=== PATIENT | male | born 1975 | race Caucasian/White ===

== ENCOUNTER 2016-08-24 00:36 | Emergency (ER) | payer OTHER ==
[2016-08-24] MEDS ORDERED: ONDANSETRON 4 MG/2 ML VIAL IVP STA (00:41)
--- NOTE | 2016-08-24 00:51 | ED ---
Overdose HPI - General Chief Complaint: Overdose Stated Complaint: overdose Time Seen by Provider: 08/24/16 00:40 Source: patient, EMS Mode of arrival: EMS Limitations: no limitations - History of Present Illness Initial Comments: Is a 41-year-old male with a history of heroin abuse who presents emergency department for overdose. The patient was previously sober for 14 months and then decided to use today. He states that he used to lower dose than typical however was found to be unresponsive. Police and EMS were called. He was given Narcan in route and had resolution of his symptoms. He is now awake and alert complaining of nausea. He denies any chest pain or shortness of breath. He states he did not ingest any other medications. No complaints currently. - Related Data Home Medications Medication Instructions Recorded Confirmed ALPRAZolam [Xanax] 2 mg PO BID 09/26/15 09/26/15 Amoxic-Pot Clav 875-125Mg 1 tab PO Q12HR 09/26/15 09/26/15 [Augmentin 875-125] Gabapentin [Neurontin] 800 mg PO QID 09/26/15 09/26/15 Melatonin 5 mg PO HS 09/26/15 09/26/15 OLANZapine [ZyPREXA] 15 mg PO HS 09/26/15 09/26/15 Vivitrol Injection 380 mg IM Q28D 09/26/15 09/26/15 ALPRAZolam [Xanax] 2 mg PO BID PRN 10/23/15 10/23/15 Gabapentin [Neurontin] 800 mg PO QID 10/23/15 10/23/15 Melatonin 3 mg PO HS PRN 10/23/15 10/23/15 OLANZapine [ZyPREXA] 5 mg PO DAILY 10/23/15 10/23/15 Previous Rx's Medication Instructions Recorded Sulfamethox-Tmp 800-160Mg [Bactrim 1 each PO Q12HR #20 tab 09/26/15 Ds] Naloxone HCl [Evzio] 2 mg IJ ONCE PRN #1 auto.injct 08/24/16 Allergies Allergy/AdvReac Type Severity Reaction Status Date / Time aspirin AdvReac Unknown Verified 09/26/15 13:06 theophylline AdvReac Unknown Verified 09/26/15 13:06 Childhood Review of Systems ROS Statement: Those systems with pertinent positive or pertinent negative responses have been documented in the HPI. ROS Other: All systems not noted in ROS Statement are negative. Past Medical History Past Medical History: Asthma, Liver Disease Additional Past Medical History / Comment(s): PT REFUSING TO GIVE ANY MEDICAL HISTORY History of Any Multi-Drug Resistant Organisms: MRSA, None Reported Date of last positivie culture/infection: 2011 MDRO Source:: LEFT ANKLE Past Surgical History: No Surgical Hx Reported Additional Past Surgical History / Comment(s): UNKNOWN Past Anesthesia/Blood Transfusion Reactions: No Reported Reaction Past Psychological History: Anxiety, Depression Smoking Status: Current every day smoker Past Alcohol Use History: Heavy Past Drug Use History: Cocaine, Heroin, Marijuana, Opiates, Prescription Drug Abuse - Past Family History Mother Family Medical History: Cancer Father Family Medical History: Diabetes Mellitus General Exam - General Exam Comments Initial Comments: Constitutional: Awake alert Appears comfortable Head: Normocephalic atraumatic Eyes: no conjunctival injection No scleral icterus EOMI Neck: No JVD Supple Heart: Tachycardia normal S1-S2 no murmurs Lungs: Clear to auscultation bilaterally No wheezing No rales Abdomen: Soft nondistended nontender Extremities: Non edematous DP pulses intact Radial pulses intact Neuro: A&Ox3 No focal neurologic deficits Psych: Appropriate mood and affect Limitations: no limitations Course Vital Signs 08/24/16 08/24/16 00:45 00:57 Temperature 97.1 F L Pulse Rate 120 H Respiratory 18 Rate Blood Pressure 147/80 O2 Sat by Pulse 95 Oximetry - Reevaluation(s) Reevaluation #1: 08/24/16 01:16 EKG showing sinus tachycardia with a rate of 112. No ST segment changes or T- wave inversions. QTC is 458. No ectopy. Medical Decision Making - Medical Decision Making This is a 41-year-old male who presents emergency department for overdose. He is evaluated. He was monitored in the ER for approximately 35 minutes and then decided he wanted to leave. I told him that if the Narcan wore off in the room and was still in his system he could have another respiratory failure however he stated he felt like it was long enough. He was awake and alert and understood the risks of going home including or severe disability ability. He stated he still wanted to go home. He was prescribed an auto injector that he could use as needed. Told him to get into rehab that he felt like he needed it. He can return if he has worsening symptoms. Disposition Clinical Impression: Left against medical advice, Accidental heroin overdose Disposition: Left Against Medical Advice Condition: Stable Instructions: Narcotic Abuse (ED) Prescriptions: Naloxone HCl [Evzio] 2 mg IJ ONCE PRN #1 auto.injct PRN Reason: overdose Referrals: None,Stated [Primary Care Provider] - 1-2 days
[2016-08-24 00:57] VITALS: TEMP 97.1
[2016-08-24 01:21] VITALS: BP 147/55; PULSE 77; RESP 20
== END 2016-08-24 01:21 | disposition left against medical advice (07) ==
LOC: EC 00:36
DX: T40.1X1A Poisoning by heroin, accidental (unintentional), initial encounter (principal); R11.0 Nausea; F17.200 Nicotine dependence, unspecified, uncomplicated; Z86.59 Personal history of other mental and behavioral disorders; F41.9 Anxiety disorder, unspecified; F32.9 Major depressive disorder, single episode, unspecified; Z79.899 Other long term (current) drug therapy
CPT/HCPCS: 99285; 96374; 93005; J2405

== ENCOUNTER 2017-07-23 01:49 | Emergency (ER) | payer OTHER ==
[2017-07-23 01:58] VITALS: BP 152/91; PULSE 112; RESP 18
[2017-07-23 02:01] VITALS: TEMP 101.5
[2017-07-23] MEDS ORDERED: IBUPROFEN 600 MG TAB PO STA (02:03)
[2017-07-23] MEDS ORDERED: ACETAMINOPHEN TAB 500 MG TAB PO STA (02:03)
--- NOTE | 2017-07-23 02:03 | ED ---
General Adult HPI - General Chief complaint: Recheck/Abnormal Lab/Rx Stated complaint: overdose Time Seen by Provider: 07/23/17 01:50 Source: patient, EMS, RN notes reviewed Mode of arrival: EMS Limitations: no limitations - History of Present Illness Initial comments: This is a 42-year-old male presents emergency Department after doing methamphetamine. Patient states he took the methamphetamine and shortly thereafter he got the chills and then felt like he was sweating and he states he never felt Before she came to the emergency department. Patient still complaining of a dry mouth at this time. And is requesting something to drink. Patient does have a fever but denies any cough patient denies any dysuria hematuria urinary frequency. Patient denies any rashes. Patient denies abdominal pain patient denies nausea vomiting diarrhea. Patient denies chest pain or palpitations. - Related Data Home Medications Medication Instructions Recorded Confirmed ALPRAZolam [Xanax] 2 mg PO BID 09/26/15 09/26/15 Amoxic-Pot Clav 875-125Mg 1 tab PO Q12HR 09/26/15 09/26/15 [Augmentin 875-125] Gabapentin [Neurontin] 800 mg PO QID 09/26/15 09/26/15 Melatonin 5 mg PO HS 09/26/15 09/26/15 OLANZapine [ZyPREXA] 15 mg PO HS 09/26/15 09/26/15 Vivitrol Injection 380 mg IM Q28D 09/26/15 09/26/15 ALPRAZolam [Xanax] 2 mg PO BID PRN 10/23/15 10/23/15 Gabapentin [Neurontin] 800 mg PO QID 10/23/15 10/23/15 Melatonin 3 mg PO HS PRN 10/23/15 10/23/15 OLANZapine [ZyPREXA] 5 mg PO DAILY 10/23/15 10/23/15 Previous Rx's Medication Instructions Recorded Sulfamethox-Tmp 800-160Mg [Bactrim 1 each PO Q12HR #20 tab 09/26/15 Ds] Naloxone HCl [Evzio] 2 mg IJ ONCE PRN #1 auto.injct 08/24/16 Allergies Allergy/AdvReac Type Severity Reaction Status Date / Time aspirin AdvReac Unknown Verified 09/26/15 13:06 theophylline AdvReac Unknown Verified 09/26/15 13:06 Childhood Review of Systems ROS Statement: Those systems with pertinent positive or pertinent negative responses have been documented in the HPI. ROS Other: All systems not noted in ROS Statement are negative. Past Medical History Past Medical History: Asthma, Liver Disease Additional Past Medical History / Comment(s): nerve damage left arm History of Any Multi-Drug Resistant Organisms: MRSA, None Reported Date of last positivie culture/infection: 2011 MDRO Source:: LEFT ANKLE Past Surgical History: No Surgical Hx Reported Additional Past Surgical History / Comment(s): right forearm abcess. Past Anesthesia/Blood Transfusion Reactions: No Reported Reaction Past Psychological History: Anxiety, Depression Smoking Status: Current every day smoker Past Alcohol Use History: Heavy Past Drug Use History: Cocaine, Heroin, Marijuana, Opiates, Prescription Drug Abuse - Past Family History Mother Family Medical History: Cancer Father Family Medical History: Diabetes Mellitus General Exam - General Exam Comments Initial Comments: GENERAL: Patient is well-developed and well-nourished. Patient is nontoxic and well- hydrated and is in no acute distress. ENT: Neck is soft and supple. No significant lymphadenopathy is noted. Oropharynx is clear. Moist mucous membranes. Neck has full range of motion without eliciting any pain. EYES: The sclera were anicteric and conjunctiva were pink and moist. Extraocular movements were intact and pupils were equal round and reactive to light. Eyelids were unremarkable. PULMONARY: Unlabored respirations. Good breath sounds bilaterally. No audible rales rhonchi or wheezing was noted. CARDIOVASCULAR: Patient is tachycardic at 110 beats a minute ABDOMEN: Soft and nontender with normal bowel sounds. SKIN: Skin is clear with no lesions or rashes and otherwise unremarkable. NEUROLOGIC: Patient is alert and oriented x3. Cranial nerves II through XII are grossly intact. Motor and sensory are also intact. Normal speech, volume and content. Symmetrical smile. MUSCULOSKELETAL: Patient's left arm is swollen and erythematous. Patient states she's been shooting up and around last 3 days LYMPHATICS: No significant lymphadenopathy is noted PSYCHIATRIC: Normal psychiatric evaluation. Limitations: no limitations Course Vital Signs 07/23/17 01:51 Temperature 101.5 F H Pulse Rate 112 H Respiratory 18 Rate Blood Pressure 152/91 O2 Sat by Pulse 93 L Oximetry Medical Decision Making - Medical Decision Making EKG is sinus tachycardia at 119 bpm OH interval is 140 QRS is 98 QT interval 336 QTC is 472. Patient's EKG shows no ST segment elevation or depression. Patient appears to have a cellulitis of the left arm and it is swollen. Patient got antibiotics in the emergency department. Patient started to demand that he wanted to leave because he believes the police are coming to get him he doesn't want to be caught. I reassured him nurses reassured him however he still demanded to sign out AMA. I told the patient the risks of this infection getting worse and potentially Tucker for high he did not care he wanted to sign out AMA. - Lab Data Lab Results 07/23/17 07/23/17 07/23/17 Range/Units 02:25 02:34 03:15 PT 10.9 (9.0-12.0) sec INR 1.1 (<1.2) Urine Color Yellow Urine Appearance Clear (Clear) Urine pH 6.0 (5.0-8.0) Ur Specific Hope 1.026 (1.001-1.035) Urine Protein 1+ H (Negative) Urine Glucose (UA) Negative (Negative) Urine Ketones 4+ H (Negative) Urine Blood Negative (Negative) Urine Nitrite Negative (Negative) Urine Bilirubin 1+ H (Negative) Urine Urobilinogen 4.0 (<2.0) mg/dL Ur Leukocyte Esterase Negative (Negative) Urine RBC 1 (0-5) /hpf Urine WBC 2 (0-5) /hpf Ur Squamous Epith Cells 1 (0-4) /hpf Hyaline Casts 26 H (0-2) /lpf Urine Mucus Many H (None) /hpf Urine Sperm Occasional H (None) /hpf Influenza Type A RNA Not Detected (Not Detectd) Influenza Type B (PCR) Not Detected (Not Detectd) Disposition Clinical Impression: Cellulitis of arm, left Disposition: Left Against Medical Advice Referrals: None,Stated [Primary Care Provider] - 1-2 days Time of Disposition: 04:38
[2017-07-23] MEDS ORDERED: VANCOMYCIN IV PER PHARMACY 1 EACH MISC MISCELLANE PRN (02:09)
[2017-07-23] MEDS ORDERED: PIPERACILLIN-TAZOBACTAM 3.375 GM in DEXTROSE/WATER 1 50ML.BAG IVPB STA (02:09)
[2017-07-23] MEDS ORDERED: SODIUM CHLORIDE 0.9% 500 ML IV SCH (02:15)
[2017-07-23] MEDS ORDERED: VANCOMYCIN 1,500 MG in SODIUM CHLORIDE 0.9% 250 ML IVPB STA (02:31)
--- NOTE | 2017-07-23 03:15 | XR ---
EXAM: XR Chest, 2 Views CLINICAL HISTORY: ITS.REASON XR Reason: Difficulty breathing TECHNIQUE: Frontal and lateral views of the chest. COMPARISON: No relevant prior studies available. FINDINGS: Lungs: There is a subtle nodular opacity in the left midlung. This may represent infectious focus versus pulmonary nodule. No evidence of pleural effusion or consolidation. Pleural space: See above. Heart: Cardiomediastinal contours are normal. Mediastinum: See above. Bones/joints: Unremarkable. IMPRESSION: Subtle nodular opacity in the left mid lung which may represent an infectious focus versus pulmonary nodule. Consider follow-up CT chest to better evaluate
[2017-07-23 03:22] LABS: Appearance,Urine Clear (Clear); Bilirubin,Urine 1+ (Negative); Blood,Urine Negative (Negative); Color,Urine Yellow; Glucose,Urine (UA) Negative (Negative); Hyaline Casts,Urine 26 /lpf (0-2); Ketones,Urine 4+ (Negative); Leukocyte Esterase,Urine Negative (Negative); Mucus,Urine Many /hpf; Nitrite,Urine Negative (Negative); Protein,Urine 1+ (Negative); RBC,Urine 1 /hpf (0-5); Specific Gravity,Urine 1.026 (1.001-1.035); Sperm,Urine Occasional /hpf; Squamous Epithelial Cell,Urine 1 /hpf (0-4); WBC,Urine 2 /hpf (0-5)
[2017-07-23 03:41] LABS: INR 1.1 (<1.2); Prothrombin Time 10.9 sec (9.0-12.0)
[2017-07-23 05:03] LABS: Basophils % (A) 0 %; Eosinophils % (A) 0 %; HGB 14.2 gm/dL (13.0-17.5); Lymphocytes # (A) 0.7 k/uL (1.0-4.8); Lymphocytes % (A) 9 %; MCHC 32.3 g/dL (31.0-37.0); MCV 92.9 fL (80.0-100.0); Monocytes # (A) 0.7 k/uL (0-1.0); Monocytes % (A) 9 %; Neutrophils % (A) 80 %; Platelet Count 181 k/uL (150-450); RBC 4.73 m/uL (4.30-5.90); RDW 12.1 % (11.5-15.5); WBC 7.6 k/uL (3.8-10.6)
[2017-07-23 05:06] LABS: ALT 64 U/L (21-72); AST 47 U/L (17-59); Albumin 4.1 g/dL (3.5-5.0); Alkaline Phosphatase 81 U/L (38-126); Anion Gap 14 mmol/L; Blood Urea Nitrogen 10 mg/dL (9-20); Calcium 9.1 mg/dL (8.4-10.2); Carbon Dioxide 28 mmol/L (22-30); Chloride 95 mmol/L (98-107); Glucose 104 mg/dL (74-99); Potassium 3.1 mmol/L (3.5-5.1); Sodium 137 mmol/L (137-145); Total Bilirubin 1.1 mg/dL (0.2-1.3); Total Protein 7.3 g/dL (6.3-8.2)
== END 2017-07-23 04:47 | disposition left against medical advice (07) ==
LOC: EC 01:49
DX: L03.114 Cellulitis of left upper limb (principal); R00.0 Tachycardia, unspecified; R68.2 Dry mouth, unspecified; F32.9 Major depressive disorder, single episode, unspecified; F41.9 Anxiety disorder, unspecified; F17.200 Nicotine dependence, unspecified, uncomplicated; Z79.899 Other long term (current) drug therapy; Z88.6 Allergy status to analgesic agent; Z88.8 Allergy status to other drugs, medicaments and biological substances; Z86.14 Personal history of Methicillin resistant Staphylococcus aureus infection; Z86.69 Personal history of other diseases of the nervous system and sense organs
CPT/HCPCS: 36415; 93005; 80053; 83605; 85025; 85610; 85730; 81001; 87040; 87086; 87502; 71046; 99284; 96365; J2543

== ENCOUNTER 2017-07-23 12:26 | Inpatient (IN) | payer OTHER ==
[2017-07-23] MEDS ORDERED: VANCOMYCIN 1,250 MG in SODIUM CHLORIDE 0.9% 250 ML IVPB ONE (12:55)
[2017-07-23] MEDS ORDERED: SODIUM CHLORIDE 0.9% 2,000 ML IV ONE (12:55)
[2017-07-23] MEDS ORDERED: KETOROLAC 30 MG/ML 1 ML VIAL IVP STA (12:55)
--- NOTE | 2017-07-23 13:01 | ED ---
General Adult HPI - General Chief complaint: Skin/Abscess/Foreign Body Stated complaint: Infection from needle Time Seen by Provider: 07/23/17 12:35 Source: patient Mode of arrival: wheelchair Limitations: no limitations - History of Present Illness Initial comments: Patient is a 42-year-old male with a history of heroin abuse, and recent methamphetamine abuse, who presents with a chief complaint of left arm pain. The patient was seen in the emergency center last night for an overdose of methamphetamine. The patient left AMA this morning. The patient returns for cellulitis of his left arm. Patient states that it is been getting worse over the day. Patient complains of a burning sensation of his left arm. There are no aggravating or alleviating factors. Timing is constant. - Related Data Home Medications Medication Instructions Recorded Confirmed Vivitrol Injection 380 mg IM Q28D 09/26/15 07/23/17 Melatonin 3 mg PO HS PRN 10/23/15 07/23/17 Buprenorphine HCl/Naloxone HCl 1 film SL TID 07/23/17 07/23/17 [Suboxone 8 mg-2 mg Sl Film] Ergocalciferol (Vitamin D2) 50,000 unit PO Q30D 07/23/17 07/23/17 [Vitamin D2] Naltrexone HCl [Revia] 50 mg PO DAILY 07/23/17 07/23/17 QUEtiapine FUMARATE [Seroquel Xr] 300 mg PO HS 07/23/17 07/23/17 buPROPion HCL [Wellbutrin SR] 150 mg PO DAILY 07/23/17 07/23/17 Allergies Allergy/AdvReac Type Severity Reaction Status Date / Time aspirin AdvReac Unknown Verified 07/23/17 12:52 theophylline AdvReac Unknown Verified 07/23/17 12:52 Childhood Review of Systems ROS Statement: Those systems with pertinent positive or pertinent negative responses have been documented in the HPI. ROS Other: All systems not noted in ROS Statement are negative. Constitutional: Reports: chills Psychiatric: Reports: anxiety Past Medical History Past Medical History: Asthma, Liver Disease Additional Past Medical History / Comment(s): nerve damage left arm History of Any Multi-Drug Resistant Organisms: MRSA, None Reported Date of last positivie culture/infection: 2011 MDRO Source:: LEFT ANKLE Past Surgical History: No Surgical Hx Reported Additional Past Surgical History / Comment(s): right forearm abcess. Past Anesthesia/Blood Transfusion Reactions: No Reported Reaction Past Psychological History: Anxiety, Depression Smoking Status: Current every day smoker Past Alcohol Use History: Heavy Past Drug Use History: Cocaine, Heroin, Marijuana, Opiates, Prescription Drug Abuse - Past Family History Mother Family Medical History: Cancer Father Family Medical History: Diabetes Mellitus General Exam Limitations: no limitations General appearance: alert, in no apparent distress Head exam: Present: atraumatic, normocephalic Eye exam: Present: normal appearance Respiratory exam: Present: normal lung sounds bilaterally. Absent: respiratory distress, wheezes Cardiovascular Exam: Present: normal rhythm, tachycardia GI/Abdominal exam: Present: soft. Absent: distended, tenderness Rectal exam: Present: deferred Extremities exam: Present: tenderness Left Upper Arm exam: Present: tenderness, swelling, erythema Elbow exam: Present: tenderness, swelling Forearm Wrist exam: Present: tenderness, swelling, erythema Neurological exam: Present: alert, oriented X3 Psychiatric exam: Present: normal affect, normal mood Course Vital Signs 07/23/17 12:30 Temperature 99.9 F H Pulse Rate 105 H Respiratory 20 Rate Blood Pressure 131/81 O2 Sat by Pulse 98 Oximetry Medical Decision Making - Medical Decision Making Patient presents with a chief complaint of cellulitis of the left arm. Patient has a history of injectable methamphetamine use, he was recently seen in the emergency department this morning for an acute overdose. Patient left AMA at that time. Examination of the arm shows circumferential cellulitis with streaking on the lateral aspect of the left arm. Pulses and neuro exam are intact. Patient will be started on vancomycin with plan to admit. Review of labs from this morning are unremarkable. We will resend a CBC, BMP, and lactic acid level is patient is mildly tachycardic. 2:29 PM Lab evaluation this patient is unremarkable. Patient was started on vancomycin. I discussed this case with Dr. Shin who agrees with admission plan. Patient remains stable in the emergency department. - Lab Data Result diagrams: 07/23/17 13:17 07/23/17 13:17 Lab Results 07/23/17 07/23/17 07/23/17 Range/Units 13:17 13:17 13:17 WBC 5.9 (3.8-10.6) k/uL RBC 4.55 (4.30-5.90) m/uL Hgb 13.9 (13.0-17.5) gm/dL Hct 41.9 (39.0-53.0) % MCV 92.2 (80.0-100.0) fL MCH 30.5 (25.0-35.0) pg MCHC 33.1 (31.0-37.0) g/dL RDW 12.1 (11.5-15.5) % Plt Count 179 (150-450) k/uL Neutrophils % 71 % Lymphocytes % 16 % Monocytes % 9 % Eosinophils % 2 % Basophils % 0 % Neutrophils # 4.2 (1.3-7.7) k/uL Lymphocytes # 1.0 (1.0-4.8) k/uL Monocytes # 0.5 (0-1.0) k/uL Eosinophils # 0.1 (0-0.7) k/uL Basophils # 0.0 (0-0.2) k/uL Sodium 138 (137-145) mmol/L Potassium 4.2 (3.5-5.1) mmol/L Chloride 101 (98-107) mmol/L Carbon Dioxide 27 (22-30) mmol/L Anion Gap 10 mmol/L BUN 8 L (9-20) mg/dL Creatinine 0.60 L (0.66-1.25) mg/dL Est GFR (MDRD) Af Amer >60 (>60 ml/min/1.73 sqM) Est GFR (MDRD) Non-Af >60 (>60 ml/min/1.73 sqM) Glucose 105 H (74-99) mg/dL Plasma Lactic Acid Salvador 1.2 (0.7-2.0) mmol/L Calcium 8.9 (8.4-10.2) mg/dL Disposition Clinical Impression: Cellulitis, IV drug user Disposition: ADMITTED IP TO THIS HOSP Condition: Good Referrals: None,Stated [Primary Care Provider] - 1-2 days Decision to Admit Reason: Admit from EC - Out of Hospital Transfer - Req. Specs Out of Hospital Transfer - Requested Specifics: Other Non-Acute
[2017-07-23 13:29] LABS: Basophils % (A) 0 %; Eosinophils # (A) 0.1 k/uL (0-0.7); Eosinophils % (A) 2 %; HCT 41.9 % (39.0-53.0); HGB 13.9 gm/dL (13.0-17.5); Lymphocytes % (A) 16 %; MCH 30.5 pg (25.0-35.0); MCHC 33.1 g/dL (31.0-37.0); MCV 92.2 fL (80.0-100.0); Mean Platelet Volume 7.2; Monocytes # (A) 0.5 k/uL (0-1.0); Monocytes % (A) 9 %; Neutrophils # (A) 4.2 k/uL (1.3-7.7); Neutrophils % (A) 71 %; Platelet Count 179 k/uL (150-450); RBC 4.55 m/uL (4.30-5.90); RDW 12.1 % (11.5-15.5); WBC 5.9 k/uL (3.8-10.6)
[2017-07-23 13:45] LABS: Anion Gap 10 mmol/L; Blood Urea Nitrogen 8 mg/dL (9-20); Calcium 8.9 mg/dL (8.4-10.2); Carbon Dioxide 27 mmol/L (22-30); Chloride 101 mmol/L (98-107); Glucose 105 mg/dL (74-99); Potassium 4.2 mmol/L (3.5-5.1); Sodium 138 mmol/L (137-145)
[2017-07-23] MEDS ORDERED: ONDANSETRON 8 MG in SODIUM CHLORIDE 0.9% 50 ML IVPB ONE (13:45)
[2017-07-23] MEDS ORDERED: NALOXONE 0.4 MG/ML 1 ML VIAL IV PRN (14:25)
[2017-07-23] MEDS ORDERED: ACETAMINOPHEN TAB 325 MG TAB PO PRN (14:25)
[2017-07-23] MEDS ORDERED: KETOROLAC 30 MG/ML 1 ML VIAL IVP PRN (14:25)
[2017-07-23] MEDS ORDERED: VANCOMYCIN IV PER PHARMACY 1 EACH MISC MISCELLANE PRN (16:01)
[2017-07-23] MEDS: NICOTINE 21MG/24HR PATCH TRANSDERM SCH (17:27)
[2017-07-23] MEDS ORDERED: HYDROcodone/APAP 5-325MG 1 EACH TAB PO PRN (17:34)
[2017-07-23] MEDS: VANCOMYCIN 1,500 MG in SODIUM CHLORIDE 0.9% 250 ML IVPB SCH (20:29)
[2017-07-23] MEDS: QUEtiapine 50 MG TAB PO SCH (20:31)
[2017-07-23] MEDS: NALOXONE SL SCH (21:30)
[2017-07-23] MEDS: BUPRENORPHINE SL SCH (21:30)
[2017-07-24] MEDS: VANCOMYCIN 1,500 MG in SODIUM CHLORIDE 0.9% 250 ML IVPB SCH ×3 (04:55→21:55)
[2017-07-24] MEDS: BUPRENORPHINE SL SCH ×4 (09:01→22:24)
[2017-07-24] MEDS: NALOXONE SL SCH ×4 (09:01→22:24)
[2017-07-24] MEDS: NICOTINE 21MG/24HR PATCH TRANSDERM SCH (09:02)
[2017-07-24] MEDS: NALTREXONE HCL 50 MG TAB PO SCH (09:02)
[2017-07-24] MEDS: buPROPion SR 150 MG TABLET.ER PO SCH (09:03)
[2017-07-24] MEDS: QUEtiapine 50 MG TAB PO SCH ×3 (09:04→21:55)
[2017-07-24 09:44] LABS: Basophils % (A) 0 %; Eosinophils # (A) 0.2 k/uL (0-0.7); Eosinophils % (A) 3 %; HCT 40.9 % (39.0-53.0); HGB 13.8 gm/dL (13.0-17.5); Lymphocytes % (A) 18 %; MCH 30.2 pg (25.0-35.0); MCHC 33.6 g/dL (31.0-37.0); MCV 89.8 fL (80.0-100.0); Mean Platelet Volume 7.7; Monocytes # (A) 0.5 k/uL (0-1.0); Monocytes % (A) 8 %; Neutrophils # (A) 3.9 k/uL (1.3-7.7); Neutrophils % (A) 68 %; Platelet Count 210 k/uL (150-450); RBC 4.56 m/uL (4.30-5.90); RDW 12.4 % (11.5-15.5); WBC 5.7 k/uL (3.8-10.6)
[2017-07-24 10:11] LABS: Anion Gap 10 mmol/L; Blood Urea Nitrogen 6 mg/dL (9-20); Calcium 8.7 mg/dL (8.4-10.2); Carbon Dioxide 24 mmol/L (22-30); Chloride 110 mmol/L (98-107); Glucose 88 mg/dL (74-99); Sodium 144 mmol/L (137-145)
[2017-07-24 11:44] VITALS: BMI 26.6
[2017-07-24] MEDS: cloNIDine HCL 0.1 MG TAB PO SCH ×2 (15:20→15:21)
--- NOTE | 2017-07-24 16:35 | HP ---
HISTORY AND PHYSICAL DATE OF ADMISSION: 07/23/17 CHIEF COMPLAINT: Redness, swelling and pain in the left arm. HISTORY OF PRESENT ILLNESS: This is another admission for this 42-year-old white male IVDA. He was injecting in his left elbow and subsequently wound up with redness, pain and swelling in the entire upper and lower arm. He presented here to the emergency room. He has full function of the elbow, wrist, hand and fingers. He is on Suboxone. REVIEW OF SYSTEMS: He has had no headaches, seizures, change in vision or hearing, chest pain, cough, hemoptysis, murmurs, rheumatic fever, heart disease, hypertension, abdominal pain, nausea, vomiting, hematemesis, melena, hematochezia, colitis, diverticulosis, jaundice, hepatitis, hematuria, frequency, urgency, urethral discharge, diabetes, etc. PAST MEDICAL HISTORY: Past medical history, family history, personal and social history reveal that he is ALLERGIC TO THEOPHYLLINE. He is on Suboxone and is living in a assisted house. PHYSICAL EXAMINATION: Blood pressure 150/100 with a pulse of 96, respirations 35, and temperature 99.9. GENERAL: He appeared to be well developed, well nourished, no acute distress. Skin color is normal. Skin is warm, dry. Lymph nodes not enlarged. Head, ears, eyes, nose, mouth and throat were normal. Neck veins were not distended. Thyroid was not enlarged. Chest is clear. Cardiac exam is normal. No murmurs. The abdomen is soft, nontender. Extremities demonstrated his left arm to have a mild to moderate erythematous cellulitis in the upper arm, elbow, and in the forearm. He has good neurologic function in the fingers, hand and wrist. Neurologically he is intact. IMPRESSION: 1. Cellulitis of the left arm. 2. IV drug abuser. 3. Major depression. PLAN: 1. Bed rest. 2. IV fluids. 3. IV antibiotics. MMODL / IJN: [id number] /
--- NOTE | 2017-07-24 16:38 | PN ---
PROGRESS NOTE DATE OF SERVICE: 07/24/17 CHIEF COMPLAINT: Cellulitis left arm and IVDA. HISTORY OF PRESENT ILLNESS: This patient is starting to go into withdrawal. He cannot get Suboxone. The hospital does not stock it either. This creates a difficult situation for this patient and managing physicians. PHYSICAL EXAM: Chest is clear. Cardiac exam is normal. Abdomen is soft, nontender and left arm is a little bit better, it is less erythematous and swollen. IMPRESSION: 1. Cellulitis, left arm. 2. Narcotic withdrawal. PLAN: 1. Continue with IV fluids and antibiotics. 2. Catapres 0.3 t.i.d. MMODL / IJN: [id number] /
[2017-07-24] MEDS ORDERED: VANCOMYCIN TROUGH DUE 1 EACH MISC MISCELLANE ONE (19:00)
[2017-07-25] MEDS: VANCOMYCIN 1,500 MG in SODIUM CHLORIDE 0.9% 250 ML IVPB SCH ×2 (04:29→11:24)
[2017-07-25 07:09] VITALS: BP 113/69; PULSE 87; RESP 16; TEMP 97
[2017-07-25] MEDS: NALTREXONE HCL 50 MG TAB PO SCH (09:02)
[2017-07-25] MEDS: buPROPion SR 150 MG TABLET.ER PO SCH (09:02)
[2017-07-25] MEDS: QUEtiapine 50 MG TAB PO SCH (09:02)
[2017-07-25] MEDS: NICOTINE 21MG/24HR PATCH TRANSDERM SCH (09:02)
[2017-07-25] MEDS: NALOXONE SL SCH (09:02)
[2017-07-25] MEDS: BUPRENORPHINE SL SCH (09:02)
[2017-07-25] MEDS ORDERED: cloNIDine HCL 0.1 MG TAB PO SCH (09:15)
[2017-07-25 09:44] LABS: Anion Gap 12 mmol/L; Blood Urea Nitrogen 4 mg/dL (9-20); Calcium 8.9 mg/dL (8.4-10.2); Carbon Dioxide 23 mmol/L (22-30); Chloride 111 mmol/L (98-107); Glucose 99 mg/dL (74-99); Potassium 3.2 mmol/L (3.5-5.1); Sodium 146 mmol/L (137-145)
[2017-07-25] MEDS ORDERED: Potassium Replacement Protocol 1 EACH MISC MISCELLANE PRN (09:53)
[2017-07-25] MEDS: POTASSIUM CHLORIDE ER 20 MEQ TAB.ER PO SCH ×2 (11:24→12:40)
--- NOTE | 2017-07-25 16:30 | DS ---
DISCHARGE SUMMARY CHIEF COMPLAINT: Cellulitis left arm. HISTORY OF PRESENT ILLNESS AND PHYSICAL EXAM: Details of this man's history and physical can be found in the initial workup. LABORATORY STUDIES: While he was in a hospital he had laboratory studies, details which can be found in the laboratory section of chart. COURSE IN HOSPITAL: After admission he was placed in bedrest, started on intravenous fluids and IV antibiotics. The arm is slowly improving. He suddenly signed himself out AGAINST MEDICAL ADVICE on the . FINAL DIAGNOSES: 1. Cellulitis, left arm. 2. IV drug abuse. OPERATIONS: None. CONSULTATION: None. He is improved. MMODL / IJN: [id number] /
== END 2017-07-25 13:45 | disposition left against medical advice (07) | DRG 603 ==
LOC: EC 12:26 → 4MS4W 14:26
PROVIDERS: ADMIT Family Medicine; ATTEND Family Medicine
DX: L03.114 Cellulitis of left upper limb (principal); F11.23 Opioid dependence with withdrawal; F17.200 Nicotine dependence, unspecified, uncomplicated; F32.9 Major depressive disorder, single episode, unspecified; F41.9 Anxiety disorder, unspecified; R00.0 Tachycardia, unspecified; R20.8 Other disturbances of skin sensation; J45.909 Unspecified asthma, uncomplicated; Z53.21 Procedure and treatment not carried out due to patient leaving prior to being seen by health care provider; Z88.1 Allergy status to other antibiotic agents; Z79.899 Other long term (current) drug therapy; Z88.6 Allergy status to analgesic agent; Z83.3 Family history of diabetes mellitus; Z86.14 Personal history of Methicillin resistant Staphylococcus aureus infection
CPT/HCPCS: 36415; 80048; 80202; 83605; 85025; 87040; 87077; 87186; 96365; 96366; 96375; 99284

== ENCOUNTER 2017-07-25 16:14 | Inpatient (IN) | payer OTHER ==
[2017-07-25] MEDS ORDERED: SODIUM CHLORIDE 0.9% 500 ML IV ONE (17:56)
--- NOTE | 2017-07-25 17:56 | ED ---
Extremity Problem HPI - General Chief complaint: Extremity Problem,Nontraumatic Stated complaint: Mental Health Time Seen by Provider: 07/25/17 17:48 Source: patient Mode of arrival: ambulatory - History of Present Illness Initial comments: 42-year-old male patient presents to the emergency department today for evaluation after leaving AGAINST MEDICAL ADVICE from an inpatient floor earlier today. Patient states that he was admitted for an infection to his left arm. Patient states that on the he injected methamphetamine into his left antecubital space. States that after, his arm became very sore, he was not able to extend it, and his arm became red. Patient states he was admitted and given IV antibiotics. Patient states that he is taking Suboxone for opiate withdrawal. States that he left today so he could shrimp picker his prescription to prevent opiate withdrawals as we do not provide his type of medication here. Patient states that when he left here he was feeling very "weird". States that his entire body feels weak and shaky. He states he is having hallucinations and feels paranoid. He denies any suicidal or homicidal ideation. He denies any drug use since leaving here. Denies any fevers or chills. Patient denies any recent rash, shortness breath, chest pain, abdominal pain, nausea, vomiting , diarrhea, constipation, back pain, numbness, tingling, dizziness, hematuria, dysuria, urinary urgency, urinary frequency, headache, visual changes, or any other complaints. - Related Data Home Medications Medication Instructions Recorded Confirmed Buprenorphine HCl/Naloxone HCl 1 film SL TID 07/23/17 07/25/17 [Suboxone 8 mg-2 mg Sl Film] Ergocalciferol (Vitamin D2) 50,000 unit PO Q30D 07/23/17 07/25/17 [Vitamin D2] QUEtiapine FUMARATE [Seroquel Xr] 300 mg PO HS 07/23/17 07/25/17 buPROPion HCL [Wellbutrin SR] 150 mg PO DAILY 07/23/17 07/25/17 Buprenorphine HCl/Naloxone HCl 1 tab SUBLINGUAL DAILY 07/25/17 07/25/17 [Zubsolv 5.7-1.4 mg Tablet Sl] Naproxen [Naprosyn] 500 mg PO BID PRN 07/25/17 07/25/17 Ranitidine HCl [Zantac] 150 mg PO BID 07/25/17 07/25/17 Allergies Allergy/AdvReac Type Severity Reaction Status Date / Time aspirin AdvReac Unknown Verified 07/25/17 18:04 theophylline AdvReac Unknown Verified 07/25/17 18:04 Childhood Review of Systems ROS Statement: Those systems with pertinent positive or pertinent negative responses have been documented in the HPI. ROS Other: All systems not noted in ROS Statement are negative. Past Medical History Past Medical History: Asthma, GERD/Reflux, Liver Disease, Pneumonia Additional Past Medical History / Comment(s): nerve damage left arm, past abcess rt forearm(sx), hep-c(past heroin use),past od's History of Any Multi-Drug Resistant Organisms: MRSA, None Reported Date of last positivie culture/infection: 2011(per pt) MDRO Source:: LEFT ANKLE Past Surgical History: No Surgical Hx Reported Additional Past Surgical History / Comment(s): right forearm abcess. Past Anesthesia/Blood Transfusion Reactions: No Reported Reaction Past Psychological History: Anxiety, Depression Smoking Status: Current every day smoker - Past Family History Mother Family Medical History: Cancer Father Family Medical History: Diabetes Mellitus General Exam General appearance: alert, in no apparent distress, other (Physical well- developed, well-nourished adult male patient in no acute distress. Vital signs upon presentation are temperature 98.6F, pulse 104, respirations 18, blood pressure 138/80, pulse ox 99% on room air.) Eye exam: Present: normal appearance, PERRL, EOMI. Absent: scleral icterus, conjunctival injection, periorbital swelling ENT exam: Present: normal exam, normal oropharynx, mucous membranes moist Respiratory exam: Present: normal lung sounds bilaterally. Absent: respiratory distress, wheezes, rales, rhonchi, stridor Cardiovascular Exam: Present: regular rate, normal rhythm, normal heart sounds. Absent: systolic murmur, diastolic murmur, rubs, gallop, clicks GI/Abdominal exam: Present: soft, normal bowel sounds. Absent: distended, tenderness, guarding, rebound, rigid Extremities exam: Present: tenderness (Tenderness over the medial volar aspect of the left forearm. ), normal capillary refill, other (There is erythema, extending up the medial aspect of the left forearm from the wrist up into the mid upper arm. Radial pulses are 2+ and equal bilaterally. Cap refills less than 3 seconds.). Absent: normal inspection, full ROM (Patient is unable to fully extend the left arm due to increased pain), pedal edema, joint swelling, calf tenderness Neurological exam: Present: alert, oriented X3, CN II-XII intact Psychiatric exam: Present: normal affect, normal mood Skin exam: Present: warm, dry, intact, normal color. Absent: rash Course Vital Signs 07/25/17 07/25/17 16:33 19:06 Temperature 98.6 F 98.2 F Pulse Rate 104 H 70 Respiratory 18 18 Rate Blood Pressure 138/80 125/70 O2 Sat by Pulse 99 98 Oximetry Medical Decision Making - Medical Decision Making 42-year-old male patient presents to the emergency department today for readmission after leaving AGAINST MEDICAL ADVICE earlier today. Patient did obtain a prescription of his Suboxone and has it in his possession. Labs reviewed at this time and are unremarkable. Patient will be readmitted to continue receiving IV vancomycin. Did speak to Emerald Martinez who accepts admission. - Lab Data Result diagrams: 07/25/17 18:30 07/25/17 18:30 Lab Results 07/25/17 07/25/17 Range/Units 18:30 18:30 WBC 8.7 (3.8-10.6) k/uL RBC 4.39 (4.30-5.90) m/uL Hgb 13.2 (13.0-17.5) gm/dL Hct 40.5 (39.0-53.0) % MCV 92.4 (80.0-100.0) fL MCH 30.1 (25.0-35.0) pg MCHC 32.5 (31.0-37.0) g/dL RDW 12.4 (11.5-15.5) % Plt Count 257 (150-450) k/uL Neutrophils % 76 % Lymphocytes % 13 % Monocytes % 9 % Eosinophils % 1 % Basophils % 0 % Neutrophils # 6.7 (1.3-7.7) k/uL Lymphocytes # 1.1 (1.0-4.8) k/uL Monocytes # 0.8 (0-1.0) k/uL Eosinophils # 0.1 (0-0.7) k/uL Basophils # 0.0 (0-0.2) k/uL Sodium 141 (137-145) mmol/L Potassium 3.9 (3.5-5.1) mmol/L Chloride 107 (98-107) mmol/L Carbon Dioxide 23 (22-30) mmol/L Anion Gap 11 mmol/L BUN 5 L (9-20) mg/dL Creatinine 0.97 (0.66-1.25) mg/dL Est GFR (MDRD) Af Amer >60 (>60 ml/min/1.73 sqM) Est GFR (MDRD) Non-Af >60 (>60 ml/min/1.73 sqM) Glucose 102 H (74-99) mg/dL Calcium 9.5 (8.4-10.2) mg/dL Magnesium 1.8 (1.6-2.3) mg/dL Total Bilirubin 0.6 (0.2-1.3) mg/dL AST 49 (17-59) U/L ALT 66 (21-72) U/L Alkaline Phosphatase 73 (38-126) U/L Total Protein 6.8 (6.3-8.2) g/dL Albumin 3.6 (3.5-5.0) g/dL Disposition Clinical Impression: Cellulitis Disposition: ADMITTED IP TO THIS [facility] Condition: Serious Referrals: Iveth Gallagher MD [Primary Care Provider] - 1-2 days Decision to Admit Reason: Admit from EC Decision Date: 07/25/17 Decision Time: 19:19
[2017-07-25 18:41] LABS: Basophils % (A) 0 %; Eosinophils # (A) 0.1 k/uL (0-0.7); Eosinophils % (A) 1 %; HCT 40.5 % (39.0-53.0); HGB 13.2 gm/dL (13.0-17.5); Lymphocytes # (A) 1.1 k/uL (1.0-4.8); Lymphocytes % (A) 13 %; MCH 30.1 pg (25.0-35.0); MCHC 32.5 g/dL (31.0-37.0); MCV 92.4 fL (80.0-100.0); Mean Platelet Volume 7.1; Monocytes # (A) 0.8 k/uL (0-1.0); Monocytes % (A) 9 %; Neutrophils # (A) 6.7 k/uL (1.3-7.7); Neutrophils % (A) 76 %; Platelet Count 257 k/uL (150-450); RBC 4.39 m/uL (4.30-5.90); RDW 12.4 % (11.5-15.5); WBC 8.7 k/uL (3.8-10.6)
[2017-07-25 18:51] LABS: ALT 66 U/L (21-72); AST 49 U/L (17-59); Albumin 3.6 g/dL (3.5-5.0); Alkaline Phosphatase 73 U/L (38-126); Anion Gap 11 mmol/L; Blood Urea Nitrogen 5 mg/dL (9-20); Calcium 9.5 mg/dL (8.4-10.2); Carbon Dioxide 23 mmol/L (22-30); Chloride 107 mmol/L (98-107); Glucose 102 mg/dL (74-99); Magnesium 1.8 mg/dL (1.6-2.3); Potassium 3.9 mmol/L (3.5-5.1); Sodium 141 mmol/L (137-145); Total Bilirubin 0.6 mg/dL (0.2-1.3); Total Protein 6.8 g/dL (6.3-8.2)
[2017-07-25] MEDS ORDERED: NALOXONE 0.4 MG/ML 1 ML VIAL IV PRN (19:17)
[2017-07-25] MEDS ORDERED: VANCOMYCIN IV PER PHARMACY 1 EACH MISC MISCELLANE PRN (19:19)
[2017-07-25] MEDS ORDERED: NAPROXEN 250 MG TAB PO PRN (19:42)
[2017-07-25] MEDS ORDERED: VANCOMYCIN 1,500 MG in SODIUM CHLORIDE 0.9% 250 ML IVPB ONE (20:00)
[2017-07-25] MEDS: SODIUM CHLORIDE 0.9% 1,000 ML IV SCH (20:06)
[2017-07-25] MEDS ORDERED: ERGOCALCIFEROL 50,000 UNIT CAP PO SCH (21:00)
[2017-07-25] MEDS ORDERED: Buprenorphine Hcl/Naloxone Hcl [Suboxone 8 Mg-2 Mg Sl Film] 1 FILM SL SCH (22:00)
[2017-07-25] MEDS: FAMOTIDINE 20 MG TAB PO SCH (22:28)
[2017-07-25] MEDS: QUEtiapine 50 MG TAB PO SCH (22:29)
[2017-07-26] MEDS: traMADol 50 MG TAB PO PRN ×2 (00:29→09:38)
[2017-07-26] MEDS: VANCOMYCIN 1,500 MG in SODIUM CHLORIDE 0.9% 250 ML IVPB SCH ×2 (04:03→12:51)
[2017-07-26] MEDS: QUEtiapine 50 MG TAB PO SCH ×2 (09:24→21:35)
[2017-07-26] MEDS: buPROPion SR 150 MG TABLET.ER PO SCH (09:26)
[2017-07-26] MEDS: NICOTINE 21MG/24HR PATCH TRANSDERM SCH (09:26)
[2017-07-26] MEDS: FAMOTIDINE 20 MG TAB PO SCH ×2 (09:26→21:35)
--- NOTE | 2017-07-26 12:33 | P.HPIM ---
History of Present Illness H&P Date: 07/26/17 Chief Complaint: Left hand swelling and pain Patient is a 42-year-old male with a known history of GERD, IVDU heroin, Hep C and previous right hand cellulitis came to ER with complaints of left arm swelling and pain. Patient initially came to ER and left againest medical advice and came back. Patient states that on the he injected methamphetamine into his left antecubital space. States that after, his arm became very sore, he was not able to extend it, and his arm became red. Patient states he was admitted and given IV antibiotics. Patient states that he is taking Suboxone for opiate withdrawal. Patient states after he left here he was feeling very "weird". States that his entire body feels weak and shaky. He states he is having hallucinations and feels paranoid. He denies any suicidal or homicidal ideation. He denies any drug use since leaving here. Denies any fevers or chills. Patient denies any recent rash, shortness breath, chest pain, abdominal pain, nausea, vomiting, diarrhea, constipation, back pain , numbness, tingling, dizziness, hematuria, dysuria, urinary urgency, urinary frequency, headache, visual changes, or any other complaints. Review of Systems Constitutional: Patient denies any fever or chills . No generalized weakness or weight loss. Abdomen: Patient denied nausea vomiting and diarrhea and abdominal pain. Cardiovascular: Patient denies any chest pain or short of breath no palpitations. Respiratory: patient denied any cough is from production. No shortness of breath Neurologic: Patient denied any numbness or tingling headache. Musculoskeletal: Left hand swelling and pain and redness Skin: Negative Psychiatric: Negative Endocrine: No heat or cold intolerance. No recent weight gain. Genitourinary: No dysuria or hematuria. All other 14 point ROS negative except the above Past Medical History Past Medical History: Asthma, GERD/Reflux, Liver Disease, Pneumonia Additional Past Medical History / Comment(s): nerve damage left arm, past abcess rt forearm(sx), hep-c(past heroin use),past od's History of Any Multi-Drug Resistant Organisms: MRSA, None Reported Date of last positivie culture/infection: 2011(per pt) MDRO Source:: LEFT ANKLE Past Surgical History: No Surgical Hx Reported Additional Past Surgical History / Comment(s): right forearm abcess. Past Anesthesia/Blood Transfusion Reactions: No Reported Reaction Past Psychological History: Anxiety, Depression Additional Psychological History / Comment(s): pt stated lives with a friend but environment not safe d/t availbilty of drugs Smoking Status: Current every day smoker Past Alcohol Use History: Heavy Additional Past Alcohol Use History / Comment(s): started smoking 1990 smokes up to 2ppd Past Drug Use History: Cocaine, Heroin, Marijuana, Opiates, Prescription Drug Abuse Additional Drug Use History / Comment(s): per pt-last time used heroin but 07-22-17 and 07-23-17 used meth. - Past Family History Mother Family Medical History: Cancer Father Family Medical History: Diabetes Mellitus Medications and Allergies Home Medications Medication Instructions Recorded Confirmed Type Buprenorphine HCl/Naloxone HCl 1 film SL TID 07/23/17 07/25/17 History [Suboxone 8 mg-2 mg Sl Film] Ergocalciferol (Vitamin D2) 50,000 unit PO Q30D 07/23/17 07/25/17 History [Vitamin D2] QUEtiapine FUMARATE [Seroquel Xr] 300 mg PO HS 07/23/17 07/25/17 History buPROPion HCL [Wellbutrin SR] 150 mg PO DAILY 07/23/17 07/25/17 History Buprenorphine HCl/Naloxone HCl 1 tab SUBLINGUAL DAILY 07/25/17 07/25/17 History [Zubsolv 5.7-1.4 mg Tablet Sl] Naproxen [Naprosyn] 500 mg PO BID PRN 07/25/17 07/25/17 History Ranitidine HCl [Zantac] 150 mg PO BID 07/25/17 07/25/17 History Allergies Allergy/AdvReac Type Severity Reaction Status Date / Time aspirin AdvReac Unknown Verified 07/25/17 18:04 theophylline AdvReac Unknown Verified 07/25/17 18:04 Childhood Physical Exam Vitals: Vital Signs Temp Pulse Pulse Resp BP BP Pulse Ox 07/26/17 08:00 78 16 07/26/17 07:00 97.5 F L 78 16 157/102 96 07/26/17 00:00 16 07/25/17 21:42 98.4 F 86 16 155/98 98 07/25/17 20:55 98.5 F 78 20 130/69 98 07/25/17 19:06 98.2 F 70 18 125/70 98 07/25/17 16:33 98.6 F 104 H 18 138/80 99 Intake and Output 07/25/17 07/26/17 07/26/17 22:59 06:59 14:59 Other: Voiding Method Toilet Toilet # Voids 2 Weight 84.822 kg PHYSICAL EXAMINATION: Patient is lying in the bed comfortably, no acute distress, awake alert and oriented.. HEENT: Normocephalic. Neck is supple. Pupils reactive. Nostrils clear. Oral cavity is moist. Ears reveal no drainage. Neck reveals no JVD, carotid bruits, or thyromegaly. CHEST EXAMINATION: Trachea is central. Symmetrical expansion. Lung taylor clear to auscultation and percussion. CARDIAC: Normal S1, S2 with no gallops. No murmurs ABDOMEN: Soft. Bowel sounds normal. No organomegaly. No abdominal bruits. Extremities: reveal no edema. No clubbing or cyanosis. Left forearm medial aspect is tender to palpation reddened and warm. Pulses palpable 2+ Neurologically awake, alert, oriented x3 with well-coordinated movements. No focal deficits noted Skin: No rash or skin lesions. Psychiatric: Coperative. Nonsuicidal Musculoskeletal: No joint swelling or deformity. Normal range of motion. Results CBC & Chem 7: 07/25/17 18:30 07/25/17 18:30 Labs: Abnormal Lab Results - Last 24 Hours (Table) 07/25/17 Range/Units 18:30 BUN 5 L (9-20) mg/dL Glucose 102 H (74-99) mg/dL Thrombosis Risk Factor Assmnt - DVT/VTE Prophylaxis DVT/VTE Prophylaxis: Pharmacologic Prophylaxis ordered - Choose All That Apply Any of the Below Risk Factors Present?: No Other Risk Factors: No Thrombosis Risk Factor Assessment Level: Very Low Risk Assessment and Plan Assessment: Left upper activity cellulitis due to IVDU IVDU. Patient is on detox program. Stop using for 7-8 months and back again Hepatitis C. Not treated GERD DVT prophylaxis Plan: Patient will be continued on antibiotics in the form of vancomycin. Swelling and redness is improving. Follow blood cultures. Further recommendations based on the clinical course. Patient was counseled extensively for not using IVDU. Patient to be referred to GI clinic for hepatitis C treatment upon discharge. Liver enzymes not elevated. Time with Patient: Greater than 30
[2017-07-26] MEDS: ZUBSOLV SUBLINGUAL SCH ×2 (16:30→22:13)
[2017-07-26] MEDS ORDERED: VANCOMYCIN TROUGH DUE 1 EACH MISC MISCELLANE ONE (19:00)
[2017-07-26] MEDS: IBUPROFEN 400 MG TAB PO PRN (21:34)
[2017-07-27] MEDS: SODIUM CHLORIDE 0.9% 1,000 ML IV SCH (00:02)
[2017-07-27] MEDS ORDERED: VANCOMYCIN 1,500 MG in SODIUM CHLORIDE 0.9% 250 ML IVPB SCH (06:00)
[2017-07-27 07:46] LABS: Anion Gap 8 mmol/L; Blood Urea Nitrogen 12 mg/dL (9-20); Calcium 9.2 mg/dL (8.4-10.2); Carbon Dioxide 27 mmol/L (22-30); Chloride 108 mmol/L (98-107); Glucose 101 mg/dL (74-99); Potassium 3.9 mmol/L (3.5-5.1); Sodium 143 mmol/L (137-145)
[2017-07-27] MEDS: buPROPion SR 150 MG TABLET.ER PO SCH (09:14)
[2017-07-27] MEDS: NICOTINE 21MG/24HR PATCH TRANSDERM SCH (09:14)
[2017-07-27] MEDS: FAMOTIDINE 20 MG TAB PO SCH ×2 (09:14→22:01)
[2017-07-27] MEDS: QUEtiapine 50 MG TAB PO SCH ×2 (09:14→09:19)
[2017-07-27] MEDS: ZUBSOLV SUBLINGUAL SCH ×3 (09:16→22:01)
[2017-07-27] MEDS: IBUPROFEN 400 MG TAB PO PRN ×2 (09:22→19:30)
[2017-07-27 13:55] LABS: Basophils % (A) 0 %; Eosinophils # (A) 0.3 k/uL (0-0.7); Eosinophils % (A) 3 %; HCT 40.2 % (39.0-53.0); HGB 13.3 gm/dL (13.0-17.5); Lymphocytes # (A) 1.4 k/uL (1.0-4.8); Lymphocytes % (A) 16 %; MCH 30.9 pg (25.0-35.0); MCHC 33.1 g/dL (31.0-37.0); MCV 93.4 fL (80.0-100.0); Mean Platelet Volume 8.3; Monocytes # (A) 0.6 k/uL (0-1.0); Monocytes % (A) 6 %; Neutrophils # (A) 6.4 k/uL (1.3-7.7); Neutrophils % (A) 74 %; Platelet Count 214 k/uL (150-450); RBC 4.31 m/uL (4.30-5.90); RDW 12.6 % (11.5-15.5); WBC 8.7 k/uL (3.8-10.6)
[2017-07-27] MEDS ORDERED: SULFAMETHOX-TMP 800-160MG 1 EACH TAB PO SCH (14:30)
[2017-07-27] MEDS: SULFAMETHOX-TMP 800-160MG 1 EACH TAB PO SCH ×2 (14:43→22:01)
[2017-07-28] MEDS: SODIUM CHLORIDE 0.9% 1,000 ML IV SCH ×2 (01:02→20:38)
[2017-07-28] MEDS: QUEtiapine 50 MG TAB PO SCH ×3 (01:03→21:33)
[2017-07-28 08:35] LABS: Anion Gap 12 mmol/L; Blood Urea Nitrogen 15 mg/dL (9-20); Calcium 8.9 mg/dL (8.4-10.2); Carbon Dioxide 28 mmol/L (22-30); Chloride 101 mmol/L (98-107); Glucose 94 mg/dL (74-99); Potassium 4.5 mmol/L (3.5-5.1); Sodium 141 mmol/L (137-145)
[2017-07-28] MEDS: IBUPROFEN 400 MG TAB PO PRN ×2 (08:43→21:33)
[2017-07-28] MEDS: FAMOTIDINE 20 MG TAB PO SCH ×2 (08:45→21:33)
[2017-07-28] MEDS: buPROPion SR 150 MG TABLET.ER PO SCH (08:45)
[2017-07-28] MEDS: NICOTINE 21MG/24HR PATCH TRANSDERM SCH (08:45)
[2017-07-28] MEDS: SULFAMETHOX-TMP 800-160MG 1 EACH TAB PO SCH ×2 (08:45→21:33)
[2017-07-28] MEDS: ZUBSOLV SUBLINGUAL SCH ×3 (09:30→21:33)
[2017-07-28] MEDS ORDERED: CALCIUM CARBONATE 500 MG CHEWABLE PO PRN (18:00)
--- NOTE | 2017-07-28 23:15 | P.PN ---
Subjective Progress Note Date: 07/27/17 Principal diagnosis: Left hand cellulitis Patient is a 42-year-old male with a known history of GERD, IVDU heroin, Hep C and previous right hand cellulitis came to ER with complaints of left arm swelling and pain. Patient initially came to ER and left againest medical advice and came back. Patient states that on the he injected methamphetamine into his left antecubital space. States that after, his arm became very sore, he was not able to extend it, and his arm became red. Patient states he was admitted and given IV antibiotics. Patient states that he is taking Suboxone for opiate withdrawal. Patient states after he left here he was feeling very "weird". States that his entire body feels weak and shaky. He states he is having hallucinations and feels paranoid. He denies any suicidal or homicidal ideation. He denies any drug use since leaving here. Denies any fevers or chills. Patient denies any recent rash, shortness breath, chest pain, abdominal pain, nausea, vomiting, diarrhea, constipation, back pain , numbness, tingling, dizziness, hematuria, dysuria, urinary urgency, urinary frequency, headache, visual changes, or any other complaints. 07/27/2017 Patient denied any fever or chills. No complains of chest pain or shortness of breath. Left arm swelling is improving. Otherwise patient's IV line on the left hand is infiltrated and new IV line could not be secured at this time. Antibiotics will be changed to oral. Blood cultures are negative so far. All other review of systems negative except about Current medications reviewed Objective - Vital Signs Vital signs: Vital Signs Temp 98.3 F 07/27/17 15:00 Pulse 79 07/27/17 16:00 Resp 20 07/27/17 16:00 BP 119/54 07/27/17 15:00 Pulse Ox 94 L 07/27/17 15:00 Intake & Output 07/27/17 07/27/17 07/28/17 06:59 18:59 06:59 Intake Total 690 1340 Balance 690 1340 Intake: Oral 690 1340 Other: Voiding Method Toilet Toilet # Voids 1 3 - Exam PHYSICAL EXAMINATION: Patient is lying in the bed comfortably, no acute distress, awake alert and oriented.. HEENT: Normocephalic. Neck is supple. Pupils reactive. Nostrils clear. Oral cavity is moist. Ears reveal no drainage. Neck reveals no JVD, carotid bruits, or thyromegaly. CHEST EXAMINATION: Trachea is central. Symmetrical expansion. Lung taylor clear to auscultation and percussion. CARDIAC: Normal S1, S2 with no gallops. No murmurs ABDOMEN: Soft. Bowel sounds normal. No organomegaly. No abdominal bruits. Extremities: reveal no edema. No clubbing or cyanosis Neurologically awake, alert, oriented x3 with well-coordinated movements. No focal deficits noted Skin: No rash or skin lesions. Psychiatric: Coperative. Nonsuicidal Musculoskeletal: No joint swelling or deformity. Normal range of motion. Left forearm mild swelling. Redness improved. 2 x 2 indurated area on the volar aspect. - Labs CBC & Chem 7: 07/27/17 07:30 07/28/17 07:08 Labs: Abnormal Lab Results - Last 24 Hours (Table) 07/27/17 Range/Units 06:53 Chloride 108 H (98-107) mmol/L Creatinine 1.26 H (0.66-1.25) mg/dL Glucose 101 H (74-99) mg/dL Microbiology - Last 24 Hours (Table) 07/26/17 13:14 Blood Culture - Preliminary Blood No Growth after 24 hours Assessment and Plan Assessment: Left upper activity cellulitis due to IVDU IVDU. Patient is on detox program. Stop using for 7-8 months and back again Hepatitis C. Not treated GERD DVT prophylaxis Plan: Patient will be continued on antibiotics in the form of vancomycin-changed to Bactrim due to IV line infiltration. Swelling and redness is improving. Follow blood cultures. Continue with DVT prophylaxis with heparin subcu Further recommendations based on the clinical course. Patient was counseled extensively for not using IVDU. Patient to be referred to GI clinic for hepatitis C treatment upon discharge. Liver enzymes not elevated. Time with Patient: Greater than 30
--- NOTE | 2017-07-28 23:18 | P.PN ---
Subjective Progress Note Date: 07/28/17 Principal diagnosis: Left hand cellulitis Patient is a 42-year-old male with a known history of GERD, IVDU heroin, Hep C and previous right hand cellulitis came to ER with complaints of left arm swelling and pain. Patient initially came to ER and left againest medical advice and came back. Patient states that on the he injected methamphetamine into his left antecubital space. States that after, his arm became very sore, he was not able to extend it, and his arm became red. Patient states he was admitted and given IV antibiotics. Patient states that he is taking Suboxone for opiate withdrawal. Patient states after he left here he was feeling very "weird". States that his entire body feels weak and shaky. He states he is having hallucinations and feels paranoid. He denies any suicidal or homicidal ideation. He denies any drug use since leaving here. Denies any fevers or chills. Patient denies any recent rash, shortness breath, chest pain, abdominal pain, nausea, vomiting, diarrhea, constipation, back pain , numbness, tingling, dizziness, hematuria, dysuria, urinary urgency, urinary frequency, headache, visual changes, or any other complaints. 07/27/2017 Patient denied any fever or chills. No complains of chest pain or shortness of breath. Left arm swelling is improving. Otherwise patient's IV line on the left hand is infiltrated and new IV line could not be secured at this time. Antibiotics will be changed to oral. Blood cultures are negative so far. 07/28/2017 Patient denied any new complaints today except left arm swelling which has improved significantly. Otherwise patient still having indurated area on the medial forearm. Pain is improved as well. Creatinine level is increased to 1.5. Left upper extremity duplex was ordered to rule out any DVT. Continued on DVT prophylaxis otherwise Anticipate discharge tomorrow with motor clinical improvement. All other review of systems negative except about Current medications reviewed Objective - Vital Signs Vital signs: Vital Signs Temp 97.8 F 07/28/17 15:00 Pulse 86 07/28/17 15:00 Resp 18 07/28/17 15:00 BP 118/72 07/28/17 15:00 Pulse Ox 94 L 07/28/17 15:00 Intake & Output 07/28/17 07/28/17 07/29/17 06:59 18:59 06:59 Intake Total 3540 Balance 3540 Intake: Oral 3540 Other: Voiding Method Toilet Toilet # Voids 3 2 - Exam PHYSICAL EXAMINATION: Patient is lying in the bed comfortably, no acute distress, awake alert and oriented.. HEENT: Normocephalic. Neck is supple. Pupils reactive. Nostrils clear. Oral cavity is moist. Ears reveal no drainage. Neck reveals no JVD, carotid bruits, or thyromegaly. CHEST EXAMINATION: Trachea is central. Symmetrical expansion. Lung taylor clear to auscultation and percussion. CARDIAC: Normal S1, S2 with no gallops. No murmurs ABDOMEN: Soft. Bowel sounds normal. No organomegaly. No abdominal bruits. Extremities: reveal no edema. No clubbing or cyanosis Neurologically awake, alert, oriented x3 with well-coordinated movements. No focal deficits noted Skin: No rash or skin lesions. Psychiatric: Coperative. Nonsuicidal Musculoskeletal: No joint swelling or deformity. Normal range of motion. Left forearm resolved swelling. Redness improved. 2 x 2 indurated area on the volar aspect. - Labs CBC & Chem 7: 07/27/17 07:30 07/28/17 07:08 Labs: Abnormal Lab Results - Last 24 Hours (Table) 07/28/17 Range/Units 07:08 Creatinine 1.50 H (0.66-1.25) mg/dL Microbiology - Last 24 Hours (Table) 07/26/17 13:14 Blood Culture - Preliminary Blood No Growth after 48 hours Assessment and Plan Assessment: Left upper activity cellulitis due to IVDU IVDU. Patient is on detox program. Stopped using for 7-8 months and back again Hepatitis C. Not treated GERD DVT prophylaxis Plan: Patient will be continued on antibiotics in the form of vancomycin-changed to Bactrim due to IV line infiltration. Swelling and redness is improving. Negative blood cultures. Continue with DVT prophylaxis with heparin subcu Further recommendations based on the clinical course. Patient was counseled extensively for not using IVDU. Patient to be referred to GI clinic for hepatitis C treatment upon discharge. Liver enzymes not elevated. Time with Patient: Greater than 30
[2017-07-29 07:35] LABS: Basophils % (A) 1 %; Eosinophils # (A) 0.2 k/uL (0-0.7); Eosinophils % (A) 3 %; HCT 46.4 % (39.0-53.0); Lymphocytes # (A) 1.2 k/uL (1.0-4.8); Lymphocytes % (A) 15 %; MCH 30.2 pg (25.0-35.0); MCHC 32.4 g/dL (31.0-37.0); MCV 93.4 fL (80.0-100.0); Mean Platelet Volume 6.6; Monocytes # (A) 0.6 k/uL (0-1.0); Monocytes % (A) 8 %; Neutrophils # (A) 5.5 k/uL (1.3-7.7); Neutrophils % (A) 72 %; Platelet Count 239 k/uL (150-450); RBC 4.97 m/uL (4.30-5.90); RDW 12.6 % (11.5-15.5); WBC 7.7 k/uL (3.8-10.6)
[2017-07-29 07:45] LABS: Calcium 9.1 mg/dL (8.4-10.2); Potassium 5.2 mmol/L (3.5-5.1)
[2017-07-29] MEDS: buPROPion SR 150 MG TABLET.ER PO SCH (07:52)
[2017-07-29] MEDS: FAMOTIDINE 20 MG TAB PO SCH (07:53)
[2017-07-29] MEDS: QUEtiapine 50 MG TAB PO SCH (07:53)
[2017-07-29] MEDS: SULFAMETHOX-TMP 800-160MG 1 EACH TAB PO SCH (07:53)
[2017-07-29] MEDS: NICOTINE 21MG/24HR PATCH TRANSDERM SCH (07:53)
[2017-07-29] MEDS: ZUBSOLV SUBLINGUAL SCH ×3 (08:35→22:18)
--- NOTE | 2017-07-29 09:50 | US ---
EXAMINATION TYPE: US venous doppler duplex UE LT DATE OF EXAM: 07/29/2017 COMPARISON: NONE CLINICAL HISTORY: Swelling rule out DVT. Swelling in left arm after needle use SIDE PERFORMED: Left Left Arm: Negative for DVT. Positive for SVT in the left basilic vein at the lower forearm at the pat ient's area of pain. IMPRESSION: 1. Exam positive for superficial venous thrombosis within the left basilic vein.
--- NOTE | 2017-07-29 11:48 | P.PN ---
Subjective 42-year-old admitted for possible left tonsillitis patient has history of IV drug use hepatitis C. Patient appears to have superficial thrombophlebitis rather than cellulitis. Patient today did not have any significant redness there is little redness in the thrombophlebitic area. Patient kidney function has worsened probably 2 because of 2 reasons nonsteroidal anti-inflammatory some Bactrim both of which will be discussed new patient was started on IV fluids will recheck the kidney function tomorrow patient urine output is low as per the patient. Discontinue these medications patient was started on IV fluids and his kidney function improves patient will be discharged on Keflex for possibility of cellulitis he had. Constitutional: Denied any fatigue denied any fever. Cardio vascular: denied any chest pain, palpitations Gastrointestinal denied any nausea vomiting Pulmonary: Denied any shortness of breath cough Neurologic denied any new focal deficits Objective - Vital Signs Vital signs: Vital Signs Temp 97.7 F 07/29/17 07:00 Pulse 79 07/29/17 07:00 Resp 18 07/29/17 07:00 BP 96/52 07/29/17 07:00 Pulse Ox 94 L 07/29/17 07:00 Intake & Output 07/28/17 07/29/17 07/29/17 18:59 06:59 18:59 Intake Total 590 Balance 590 Intake: Oral 590 Other: Voiding Method Toilet Toilet # Voids 2 1 1 - Exam PHYSICAL EXAMINATION: GENERAL: The patient is alert and oriented x3, not in any acute distress. Well developed, well nourished. HEENT: Pupils are round and equally reacting to light. EOMI. No scleral icterus. No conjunctival pallor. Normocephalic, atraumatic. No pharyngeal erythema. No thyromegaly. CARDIOVASCULAR: S1 and S2 present. No murmurs, rubs, or gallops. PULMONARY: Chest is clear to auscultation, no wheezing or crackles. ABDOMEN: Soft, nontender, nondistended, normoactive bowel sounds. No palpable organomegaly. MUSCULOSKELETAL: No joint swelling or deformity. EXTREMITIES: No cyanosis, clubbing, or pedal edema. Is a little bit of redness without any local is of temperature NEUROLOGICAL: Gross neurological examination did not reveal any focal deficits. SKIN: No rashes. - Labs CBC & Chem 7: 07/29/17 07:18 07/29/17 07:18 Labs: Abnormal Lab Results - Last 24 Hours (Table) 07/29/17 Range/Units 07:18 Potassium 5.2 H (3.5-5.1) mmol/L BUN 22 H (9-20) mg/dL Creatinine 2.07 H (0.66-1.25) mg/dL Microbiology - Last 24 Hours (Table) 07/26/17 13:14 Blood Culture - Preliminary Blood No Growth after 48 hours Assessment and Plan Plan: Assessment: Left upper activity cellulitis due to IVDU or visual thrombophlebitis and Plavix will be switched to Keflex because of poor renal function Bactrim will be discontinued IVDU. Patient is on detox program. Stopped using for 7-8 months and back again Hepatitis C. Not treated GERD DVT prophylaxis Acute renal failure: Medication related along with prerenal azotemia from nonsteroidal anti-inflammatories and Bactrim which will be discontinued and patient was started on IV fluids we have issues with his IV access. Hypokalemia: Secondary to Bactrim which was discontinued
[2017-07-29] MEDS: SODIUM CHLORIDE 0.9% 1,000 ML IV SCH ×3 (12:44→21:23)
[2017-07-29] MEDS: CEPHALEXIN 500 MG CAP PO SCH ×3 (13:18→22:18)
[2017-07-29 23:43] VITALS: RESP 16
[2017-07-30] MEDS: QUEtiapine 50 MG TAB PO SCH ×3 (02:44→09:38)
[2017-07-30] MEDS: SODIUM CHLORIDE 0.9% 1,000 ML IV SCH ×2 (02:44→09:48)
[2017-07-30 07:58] VITALS: BP 98/56; PULSE 73; TEMP 98.1
[2017-07-30 08:26] LABS: Calcium 9.1 mg/dL (8.4-10.2); Potassium 5.4 mmol/L (3.5-5.1)
[2017-07-30] MEDS ORDERED: FAMOTIDINE 20 MG TAB PO SCH (09:00)
[2017-07-30] MEDS: NICOTINE 21MG/24HR PATCH TRANSDERM SCH (09:41)
[2017-07-30] MEDS: CEPHALEXIN 500 MG CAP PO SCH ×2 (09:41→12:27)
[2017-07-30] MEDS: buPROPion SR 150 MG TABLET.ER PO SCH (09:41)
[2017-07-30] MEDS: ZUBSOLV SUBLINGUAL SCH (09:44)
--- NOTE | 2017-07-30 12:59 | P.DS ---
Providers Date of admission: 07/25/17 19:22 Attending physician: Leelee Bedoya Primary care physician: Aileen Velasco [facility] Course: 42-year-old admitted for possible left tonsillitis patient has history of IV drug use hepatitis C. Patient appears to have superficial thrombophlebitis rather than cellulitis. Patient today did not have any significant redness there is little redness in the thrombophlebitic area. Patient kidney function has worsened probably 2 because of 2 reasons nonsteroidal anti-inflammatory some Bactrim both of which will be discussed new patient was started on IV fluids will recheck the kidney function tomorrow patient urine output is low as per the patient. Discontinue these medications patient was started on IV fluids and his kidney function improves patient will be discharged on Keflex for possibility of cellulitis he had. 07/30/2017 Patient kidney function started improving expected to improve with discontinuation of offending medications. Patient was advised to see a transit specialist as an outpatient for hepatitis C was advised to use Tylenol for superficial thrombophlebitis. Patient will be discharged on Keflex for 5 days. PHYSICAL EXAMINATION: GENERAL: The patient is alert and oriented x3, not in any acute distress. Well developed, well nourished. HEENT: Pupils are round and equally reacting to light. EOMI. No scleral icterus. No conjunctival pallor. Normocephalic, atraumatic. No pharyngeal erythema. No thyromegaly. CARDIOVASCULAR: S1 and S2 present. No murmurs, rubs, or gallops. PULMONARY: Chest is clear to auscultation, no wheezing or crackles. ABDOMEN: Soft, nontender, nondistended, normoactive bowel sounds. No palpable organomegaly. MUSCULOSKELETAL: No joint swelling or deformity. EXTREMITIES: No cyanosis, clubbing, or pedal edema. Is a little bit of redness without any local is of temperature NEUROLOGICAL: Gross neurological examination did not reveal any focal deficits. SKIN: No rashes. Left upper activity cellulitis due to IVDU and superficial thrombophlebitis IVDU. Patient is on detox program. Stopped using for 7-8 months and back again Hepatitis C. referred to gastroenterology GERD DVT prophylaxis Acute renal failure: Medication related along with prerenal azotemia from nonsteroidal anti-inflammatories and Bactrim, improved creatinine to 1.7 from 2. Hypokalemia: Secondary to Bactrim which was discontinued Patient Condition at Discharge: Serious Plan - Discharge Summary Discharge Rx Participant: Yes New Discharge Prescriptions: New Cephalexin [Keflex] 500 mg PO Q8HR #15 cap Continue Buprenorphine HCl/Naloxone HCl [Suboxone 8 mg-2 mg Sl Film] 1 film SL TID Ergocalciferol (Vitamin D2) [Vitamin D2] 50,000 unit PO Q30D Buprenorphine HCl/Naloxone HCl [Zubsolv 5.7-1.4 mg Tablet Sl] 1 tab SUBLINGUAL DAILY buPROPion HCL [Wellbutrin SR] 150 mg PO DAILY #30 tab.er.12h QUEtiapine FUMARATE [Seroquel Xr] 300 mg PO HS #30 tab.er.24h Ranitidine HCl [Zantac] 150 mg PO BID #20 tablet Discontinued Naproxen [Naprosyn] 500 mg PO BID PRN PRN Reason: Pain Discharge Medication List Buprenorphine HCl/Naloxone HCl [Suboxone 8 mg-2 mg Sl Film] 1 film SL TID [History] Ergocalciferol (Vitamin D2) [Vitamin D2] 50,000 unit PO Q30D 07/23/17 [History] Buprenorphine HCl/Naloxone HCl [Zubsolv 5.7-1.4 mg Tablet Sl] 1 tab SUBLINGUAL DAILY 07/25/17 [History] Cephalexin [Keflex] 500 mg PO Q8HR #15 cap 07/30/17 [Rx] QUEtiapine FUMARATE [Seroquel Xr] 300 mg PO HS #30 tab.er.24h 07/30/17 [Rx] Ranitidine HCl [Zantac] 150 mg PO BID #20 tablet 07/30/17 [Rx] buPROPion HCL [Wellbutrin SR] 150 mg PO DAILY #30 tab.er.12h 07/30/17 [Rx] Follow up Appointment(s)/Referral(s): Iveth Gallagher MD [Primary Care Provider] - 3 Days Discharge Disposition: HOME SELF-CARE
== END 2017-07-30 13:25 | disposition home or self-care (01) | DRG 300 ==
LOC: EC 16:14 → 4MS4W 19:22 → 5MS5E 20:50
PROVIDERS: ADMIT Internal Medicine; ATTEND Internal Medicine
DX: I80.8 Phlebitis and thrombophlebitis of other sites (principal); N17.9 Acute kidney failure, unspecified; F11.23 Opioid dependence with withdrawal; B19.20 Unspecified viral hepatitis C without hepatic coma; E87.6 Hypokalemia; F17.200 Nicotine dependence, unspecified, uncomplicated; F32.9 Major depressive disorder, single episode, unspecified; F41.9 Anxiety disorder, unspecified; J45.909 Unspecified asthma, uncomplicated; K21.9 Gastro-esophageal reflux disease without esophagitis; T37.0X5A Adverse effect of sulfonamides, initial encounter; Z79.899 Other long term (current) drug therapy; Z83.3 Family history of diabetes mellitus
CPT/HCPCS: 36415; 80048; 80053; 80202; 83735; 85025; 87040; 96361; 96365; 99284

== ENCOUNTER 2018-02-18 09:50 | Observation (INO) | payer OTHER ==
[2018-02-18] MEDS ORDERED: SODIUM CHLORIDE 0.9% 1,000 ML IV STA (10:29)
[2018-02-18] MEDS ORDERED: ONDANSETRON 4 MG/2 ML VIAL IVP STA (10:53)
[2018-02-18] MEDS ORDERED: PANTOPRAZOLE 40 MG/10 ML VIAL IVP STA (10:53)
[2018-02-18] MEDS ORDERED: LORazepam 2 MG/ML INJ IV STA (11:14)
[2018-02-18 11:16] LABS: Basophils % (A) 0 %; Eosinophils # (A) 0.1 k/uL (0-0.7); Eosinophils % (A) 0 %; HCT 51.4 % (39.0-53.0); HGB 17.3 gm/dL (13.0-17.5); INR 1.2 (<1.2); Lymphocytes # (A) 1.1 k/uL (1.0-4.8); Lymphocytes % (A) 4 %; MCH 31.6 pg (25.0-35.0); MCHC 33.6 g/dL (31.0-37.0); MCV 93.8 fL (80.0-100.0); Mean Platelet Volume 7.4; Monocytes # (A) 1.2 k/uL (0-1.0); Monocytes % (A) 5 %; Neutrophils # (A) 22.4 k/uL (1.3-7.7); Neutrophils % (A) 90 %; Partial Thromboplastin Time 25.5 sec (22.0-30.0); Platelet Count 243 k/uL (150-450); Prothrombin Time 11.6 sec (9.0-12.0); RBC 5.48 m/uL (4.30-5.90); RDW 12.8 % (11.5-15.5); WBC 24.8 k/uL (3.8-10.6)
[2018-02-18 11:18] LABS: ALT 258 U/L (21-72); AST 112 U/L (17-59); Acetaminophen <10.0 ug/mL; Albumin 3.6 g/dL (3.5-5.0); Alcohol <10 mg/dL; Alkaline Phosphatase 85 U/L (38-126); Anion Gap 11 mmol/L; Blood Urea Nitrogen 13 mg/dL (9-20); Calcium 8.6 mg/dL (8.4-10.2); Carbon Dioxide 22 mmol/L (22-30); Chloride 104 mmol/L (98-107); Glucose 181 mg/dL (74-99); Potassium 3.5 mmol/L (3.5-5.1); Salicylate <1.0 mg/dL; Sodium 137 mmol/L (137-145); Total Bilirubin 1.7 mg/dL (0.2-1.3); Total Protein 7.2 g/dL (6.3-8.2)
[2018-02-18 11:36] LABS: Creatine Kinase 446 U/L (55-170)
[2018-02-18 11:49] LABS: Creatine Kinase MB 1.9 ng/mL (0.0-2.4)
[2018-02-18 11:50] LABS: Troponin I <0.012 ng/mL (0.000-0.034)
--- NOTE | 2018-02-18 12:05 | XR ---
EXAMINATION TYPE: XR chest 2V DATE OF EXAM: 02/18/2018 COMPARISON: Chest x-ray July 23, 2017 HISTORY: Shortness of breath TECHNIQUE: Frontal and lateral views of the chest are obtained. FINDINGS: There is reticular interstitial changes bilaterally redemonstrated with new mild to modera te alveolar and interstitial prominence centrally. There is slightly elevated left hemidiaphragm on c urrent study. No pleural effusion or pneumothorax is seen. Some new fluid within the fissures is note d on lateral view The cardiac silhouette size remains within normal limits. The osseous structures are intact. IMPRESSION: New central alveolar and interstitial mild to moderate edema and/or infiltrates.
[2018-02-18 12:18] LABS: Appearance,Urine Cloudy (Clear); Bilirubin,Urine Negative (Negative); Blood,Urine Negative (Negative); Color,Urine Yellow; Glucose,Urine (UA) Negative (Negative); Ketones,Urine Negative (Negative); Leukocyte Esterase,Urine Negative (Negative); Mucus,Urine Few /hpf; Nitrite,Urine Negative (Negative); PH, Urine 5.5 (5.0-8.0); Protein,Urine 2+ (Negative); RBC,Urine 4 /hpf (0-5); Specific Gravity,Urine 1.022 (1.001-1.035); Urobilinogen,Urine <2.0 mg/dL (<2.0)
[2018-02-18 12:20] LABS: Amphetamine Screen,Urine Not Detected (NotDetected); Barbiturate Screen,Urine Not Detected (NotDetected); Benzodiazepines Screen,Urine Not Detected (NotDetected); Cocaine Screen,Urine Detected (NotDetected); Methadone Screen, Urine Not Detected (NotDetected); Opiate Screen,Urine Detected (NotDetected); Oxycodone Screen, Urine Not Detected (NotDetected); Phencyclidine Screen,Urine Not Detected (NotDetected); Tricyclic Antidepressant,Urine Not Detected (NotDetected); Urn Cannabinoid Scrn Detected (NotDetected)
[2018-02-18] MEDS ORDERED: cefTRIAXone IN SWFI 1,000 MG/10 ML SYRINGE IVP STA (12:21)
[2018-02-18] MEDS ORDERED: AZITHROMYCIN 500 MG in SODIUM CHLORIDE 0.9% 250 ML IVPB STA (12:27)
--- NOTE | 2018-02-18 12:29 | ED ---
General Adult HPI - General Chief complaint: Overdose Stated complaint: Mental Health Time Seen by Provider: 02/18/18 10:03 Source: patient, RN notes reviewed Mode of arrival: EMS Limitations: no limitations - History of Present Illness Initial comments: Patient's a 42-year-old male presented to the emergency room today with a chief complaint accidental overdose. Patient was found down in a parking lot. Narcan was given by EMS. Patient states he is feeling somewhat short of breath at this time. Patient denies any other complaints or symptoms. He does admit to a mild cough. He admits that he was recently released from residential. States that he is currently homeless. States he has had some thoughts of hurting himself but says that he did not try to overdose on purpose. Patient denies any other complaints at this time. Patient denies any recent fever, chills, chest pain, back pain, abdominal pain, nausea or vomiting, numbness or tingling , dysuria or hematuria, constipation or diarrhea, headaches or visual changes, or any other complaints. - Related Data Home Medications Medication Instructions Recorded Confirmed Buprenorphine HCl/Naloxone HCl 1 film SL TID 07/23/17 07/25/17 [Suboxone 8 mg-2 mg Sl Film] Ergocalciferol (Vitamin D2) 50,000 unit PO Q30D 07/23/17 07/25/17 [Vitamin D2] Buprenorphine HCl/Naloxone HCl 1 tab SUBLINGUAL DAILY 07/25/17 07/25/17 [Zubsolv 5.7-1.4 mg Tablet Sl] Previous Rx's Medication Instructions Recorded Cephalexin [Keflex] 500 mg PO Q8HR #15 cap 07/30/17 QUEtiapine FUMARATE [Seroquel Xr] 300 mg PO HS #30 tab.er.24h 07/30/17 Ranitidine HCl [Zantac] 150 mg PO BID #20 tablet 07/30/17 buPROPion HCL [Wellbutrin SR] 150 mg PO DAILY #30 tab.er.12h 07/30/17 Allergies Allergy/AdvReac Type Severity Reaction Status Date / Time aspirin AdvReac Unknown Verified 07/25/17 18:04 theophylline AdvReac Unknown Verified 07/25/17 18:04 Childhood Review of Systems ROS Statement: Those systems with pertinent positive or pertinent negative responses have been documented in the HPI. ROS Other: All systems not noted in ROS Statement are negative. Past Medical History Past Medical History: Asthma, GERD/Reflux, Liver Disease, Pneumonia Additional Past Medical History / Comment(s): nerve damage left arm, past abcess rt forearm(sx), hep-c(past heroin use),past od's History of Any Multi-Drug Resistant Organisms: MRSA, None Reported Date of last positivie culture/infection: 2011(per pt) MDRO Source:: LEFT ANKLE Past Surgical History: No Surgical Hx Reported Additional Past Surgical History / Comment(s): right forearm abcess. Past Anesthesia/Blood Transfusion Reactions: No Reported Reaction Past Psychological History: Anxiety, Depression Smoking Status: Current every day smoker Past Alcohol Use History: Heavy Past Drug Use History: Cocaine, Heroin, Marijuana, Methamphetamine, Opiates, Prescription Drug Abuse - Past Family History Mother Family Medical History: Cancer Father Family Medical History: Diabetes Mellitus General Exam - General Exam Comments Initial Comments: General: The patient is awake and alert, in no distress, and does not appear acutely ill. Eye: Pupils are equal, round and reactive to light. Extra-ocular movements are intact. No nystagmus. There is normal conjunctiva bilaterally. No signs of icterus. Ears, nose, mouth and throat: There are moist mucous membranes and no oral lesions. Neck: The neck is supple, there is no tenderness or JVD. Cardiovascular: There is a regular rate and rhythm. No murmur, rub or gallop is appreciated. Respiratory: Lungs are clear to auscultation, respirations are non-labored, breath sounds are equal. No wheezes, stridor, rales, or rhonchi. Gastrointestinal: Soft, non-distended, non-tender abdomen without masses or organomegaly noted. There is no rebound or guarding present. No CVA tenderness. Bowel sounds are unremarkable. Musculoskeletal: Normal ROM, no tenderness. Sensation intact. Strength 5/5. Pulses equal bilaterally 2+. Neurological: A&O x 3. CN II-XII intact, There are no obvious motor or sensory deficits. Coordination appears grossly intact. Speech is normal. Skin: Skin is warm and dry and no rashes or lesions are noted. Psychiatric: Cooperative, appropriate mood & affect, normal judgment. Limitations: no limitations Course Vital Signs 02/18/18 02/18/18 02/18/18 10:05 10:11 12:10 Temperature 97.0 F L Pulse Rate 129 H 114 H Pulse Rate [ 130 H [place] [employer] ] Respiratory 18 18 Rate Blood Pressure 131/90 131/90 O2 Sat by Pulse 91 L 90 L Oximetry 02/18/18 13:41 Temperature Pulse Rate 118 H Pulse Rate [ [place] Operator ] Respiratory 18 Rate Blood Pressure 119/79 O2 Sat by Pulse 88 L Oximetry - Reevaluation(s) Reevaluation #1: 02/18/18 12:29 Patient's chest x-ray reviewed does show possible infiltrate versus edema. Does have a 24,000 white count. Patient started on antibiotics of Rocephin and azithromycin here in emergency room. EKG Findings - EKG Comments: EKG Findings:: EKG performed at 1035: Shows sinus tachycardia 106 bpm NM interval 142. QRS 88. QT/QTc is 308/446. Medical Decision Making - Medical Decision Making Patient's CT reviewed shows no evidence of PE. Does show possible infiltrate versus edema. Patient started on antibiotics in the emergency room to cover for pneumonia. Patient has had pulse ox in the low 90s in the upper 80s here in the emergency room. Patient will be admitted to the hospital for community- acquired pneumonia and hypoxia. Patient will be followed by psych services for suicidal ideation. - Lab Data Result diagrams: 02/18/18 10:48 02/18/18 10:48 Lab Results 02/18/18 02/18/18 02/18/18 Range/Units 10:48 10:48 10:48 WBC 24.8 H (3.8-10.6) k/uL RBC 5.48 (4.30-5.90) m/uL Hgb 17.3 (13.0-17.5) gm/dL Hct 51.4 (39.0-53.0) % MCV 93.8 (80.0-100.0) fL MCH 31.6 (25.0-35.0) pg MCHC 33.6 (31.0-37.0) g/dL RDW 12.8 (11.5-15.5) % Plt Count 243 (150-450) k/uL Neutrophils % 90 % Lymphocytes % 4 % Monocytes % 5 % Eosinophils % 0 % Basophils % 0 % Neutrophils # 22.4 H (1.3-7.7) k/uL Lymphocytes # 1.1 (1.0-4.8) k/uL Monocytes # 1.2 H (0-1.0) k/uL Eosinophils # 0.1 (0-0.7) k/uL Basophils # 0.0 (0-0.2) k/uL PT (9.0-12.0) sec INR (<1.2) APTT (22.0-30.0) sec D-Dimer (<0.60) mg/L FEU Sodium 137 (137-145) mmol/L Potassium 3.5 (3.5-5.1) mmol/L Chloride 104 (98-107) mmol/L Carbon Dioxide 22 (22-30) mmol/L Anion Gap 11 mmol/L BUN 13 (9-20) mg/dL Creatinine 0.73 (0.66-1.25) mg/dL Est GFR (CKD-EPI)AfAm >90 (>60 ml/min/1.73 sqM) Est GFR (CKD-EPI)NonAf >90 (>60 ml/min/1.73 sqM) Glucose 181 H (74-99) mg/dL Plasma Lactic Acid [place] (0.7-2.0) mmol/L Calcium 8.6 (8.4-10.2) mg/dL Total Bilirubin 1.7 H (0.2-1.3) mg/dL AST 112 H (17-59) U/L ALT 258 H (21-72) U/L Alkaline Phosphatase 85 (38-126) U/L Total Creatine Kinase 446 H (55-170) U/L CK-MB (CK-2) 1.9 (0.0-2.4) ng/mL CK-MB (CK-2) Rel Index 0.4 Troponin I <0.012 (0.000-0.034) ng/mL Total Protein 7.2 (6.3-8.2) g/dL Albumin 3.6 (3.5-5.0) g/dL Urine Color Urine Appearance (Clear) Urine pH (5.0-8.0) Ur Specific [place] (1.001-1.035) Urine Protein (Negative) Urine Glucose (UA) (Negative) Urine Ketones (Negative) Urine Blood (Negative) Urine Nitrite (Negative) Urine Bilirubin (Negative) Urine Urobilinogen (<2.0) mg/dL Ur Leukocyte Esterase (Negative) Urine RBC (0-5) /hpf Urine WBC (0-5) /hpf Urine Mucus (None) /hpf Salicylates <1.0 mg/dL Urine Opiates Screen (NotDetected) Ur Oxycodone Screen (NotDetected) Urine Methadone Screen (NotDetected) Ur Propoxyphene Screen (NotDetected) Acetaminophen <10.0 ug/mL Ur Barbiturates Screen (NotDetected) U Tricyclic Antidepress (NotDetected) Ur Phencyclidine Scrn (NotDetected) Ur Amphetamines Screen (NotDetected) U Methamphetamines Scrn (NotDetected) U Benzodiazepines Scrn (NotDetected) Urine Cocaine Screen (NotDetected) U Marijuana (THC) Screen (NotDetected) Serum Alcohol <10 mg/dL 02/18/18 02/18/18 02/18/18 Range/Units 10:48 10:48 11:51 WBC (3.8-10.6) k/uL RBC (4.30-5.90) m/uL Hgb (13.0-17.5) gm/dL Hct (39.0-53.0) % MCV (80.0-100.0) fL MCH (25.0-35.0) pg MCHC (31.0-37.0) g/dL RDW (11.5-15.5) % Plt Count (150-450) k/uL Neutrophils % % Lymphocytes % % Monocytes % % Eosinophils % % Basophils % % Neutrophils # (1.3-7.7) k/uL Lymphocytes # (1.0-4.8) k/uL Monocytes # (0-1.0) k/uL Eosinophils # (0-0.7) k/uL Basophils # (0-0.2) k/uL PT 11.6 (9.0-12.0) sec INR 1.2 H (<1.2) APTT 25.5 (22.0-30.0) sec D-Dimer 5.22 H (<0.60) mg/L FEU Sodium (137-145) mmol/L Potassium (3.5-5.1) mmol/L Chloride (98-107) mmol/L Carbon Dioxide (22-30) mmol/L Anion Gap mmol/L BUN (9-20) mg/dL Creatinine (0.66-1.25) mg/dL Est GFR (CKD-EPI)AfAm (>60 ml/min/1.73 sqM) Est GFR (CKD-EPI)NonAf (>60 ml/min/1.73 sqM) Glucose (74-99) mg/dL Plasma Lactic Acid [place] (0.7-2.0) mmol/L Calcium (8.4-10.2) mg/dL Total Bilirubin (0.2-1.3) mg/dL AST (17-59) U/L ALT (21-72) U/L Alkaline Phosphatase (38-126) U/L Total Creatine Kinase (55-170) U/L CK-MB (CK-2) (0.0-2.4) ng/mL CK-MB (CK-2) Rel Index Troponin I (0.000-0.034) ng/mL Total Protein (6.3-8.2) g/dL Albumin (3.5-5.0) g/dL Urine Color Yellow Urine Appearance Cloudy (Clear) Urine pH 5.5 (5.0-8.0) Ur Specific [place] 1.022 (1.001-1.035) Urine Protein 2+ H (Negative) Urine Glucose (UA) Negative (Negative) Urine Ketones Negative (Negative) Urine Blood Negative (Negative) Urine Nitrite Negative (Negative) Urine Bilirubin Negative (Negative) Urine Urobilinogen <2.0 (<2.0) mg/dL Ur Leukocyte Esterase Negative (Negative) Urine RBC 4 (0-5) /hpf Urine WBC 4 (0-5) /hpf Urine Mucus Few H (None) /hpf Salicylates mg/dL Urine Opiates Screen Detected H (NotDetected) Ur Oxycodone Screen Not Detected (NotDetected) Urine Methadone Screen Not Detected (NotDetected) Ur Propoxyphene Screen Not Detected (NotDetected) Acetaminophen ug/mL Ur Barbiturates Screen Not Detected (NotDetected) U Tricyclic Antidepress Not Detected (NotDetected) Ur Phencyclidine Scrn Not Detected (NotDetected) Ur Amphetamines Screen Not Detected (NotDetected) U Methamphetamines Scrn Detected H (NotDetected) U Benzodiazepines Scrn Not Detected (NotDetected) Urine Cocaine Screen Detected H (NotDetected) U Marijuana (THC) Screen Detected H (NotDetected) Serum Alcohol mg/dL 02/18/18 Range/Units 13:15 WBC (3.8-10.6) k/uL RBC (4.30-5.90) m/uL Hgb (13.0-17.5) gm/dL Hct (39.0-53.0) % MCV (80.0-100.0) fL MCH (25.0-35.0) pg MCHC (31.0-37.0) g/dL RDW (11.5-15.5) % Plt Count (150-450) k/uL Neutrophils % % Lymphocytes % % Monocytes % % Eosinophils % % Basophils % % Neutrophils # (1.3-7.7) k/uL Lymphocytes # (1.0-4.8) k/uL Monocytes # (0-1.0) k/uL Eosinophils # (0-0.7) k/uL Basophils # (0-0.2) k/uL PT (9.0-12.0) sec INR (<1.2) APTT (22.0-30.0) sec D-Dimer (<0.60) mg/L FEU Sodium (137-145) mmol/L Potassium (3.5-5.1) mmol/L Chloride (98-107) mmol/L Carbon Dioxide (22-30) mmol/L Anion Gap mmol/L BUN (9-20) mg/dL Creatinine (0.66-1.25) mg/dL Est GFR (CKD-EPI)AfAm (>60 ml/min/1.73 sqM) Est GFR (CKD-EPI)NonAf (>60 ml/min/1.73 sqM) Glucose (74-99) mg/dL Plasma Lactic Acid [place] 1.4 (0.7-2.0) mmol/L Calcium (8.4-10.2) mg/dL Total Bilirubin (0.2-1.3) mg/dL AST (17-59) U/L ALT (21-72) U/L Alkaline Phosphatase (38-126) U/L Total Creatine Kinase (55-170) U/L CK-MB (CK-2) (0.0-2.4) ng/mL CK-MB (CK-2) Rel Index Troponin I (0.000-0.034) ng/mL Total Protein (6.3-8.2) g/dL Albumin (3.5-5.0) g/dL Urine Color Urine Appearance (Clear) Urine pH (5.0-8.0) Ur Specific [place] (1.001-1.035) Urine Protein (Negative) Urine Glucose (UA) (Negative) Urine Ketones (Negative) Urine Blood (Negative) Urine Nitrite (Negative) Urine Bilirubin (Negative) Urine Urobilinogen (<2.0) mg/dL Ur Leukocyte Esterase (Negative) Urine RBC (0-5) /hpf Urine WBC (0-5) /hpf Urine Mucus (None) /hpf Salicylates mg/dL Urine Opiates Screen (NotDetected) Ur Oxycodone Screen (NotDetected) Urine Methadone Screen (NotDetected) Ur Propoxyphene Screen (NotDetected) Acetaminophen ug/mL Ur Barbiturates Screen (NotDetected) U Tricyclic Antidepress (NotDetected) Ur Phencyclidine Scrn (NotDetected) Ur Amphetamines Screen (NotDetected) U Methamphetamines Scrn (NotDetected) U Benzodiazepines Scrn (NotDetected) Urine Cocaine Screen (NotDetected) U Marijuana (THC) Screen (NotDetected) Serum Alcohol mg/dL Disposition Clinical Impression: CAP (community acquired pneumonia), Hypoxia, Drug overdose, Suicidal ideation Disposition: ADMITTED IP TO THIS HOSP Condition: Stable Is patient prescribed a controlled substance at d/c from ED?: No Referrals: Vignesh Killian DO [Primary Care Provider] - 1-2 days Time of Disposition: 14:31
--- NOTE | 2018-02-18 14:20 | CT ---
EXAMINATION TYPE: CT angio chest DATE OF EXAM: 02/18/2018 COMPARISON: Seen today chest x-ray HISTORY: SOB, abnormal chest x-ray CT DLP: 319 mGycm. Automated Exposure Control for Dose Reduction was Utilized. CONTRAST: CTA scan of the thorax is performed with IV Contrast, patient injected with 70mL mL of Isovue 370, pu lmonary embolism protocol. MIP Images are created on CT scanner and reviewed. FINDINGS: LUNGS: Correlating with chest x-ray there is central ground glass opacity involving upper middle and lower lungs without focal consolidation felt to reflect edema and/or less likely infiltrates. No pleu ral effusion or pneumothorax is seen bilaterally. There is mild to moderate underlying emphysematous change with upper lung peripheral blebs. No suspicious masses are present. MEDIASTINUM: There is satisfactory enhancement of the pulmonary artery and its branches, there is no CT evidence for pulmonary embolism. There are no greater than 1 cm hilar or mediastinal lymph nodes. No cardiomegaly or pericardial effusion is seen. OTHER: No additional significant abnormality is seen. IMPRESSION: 1. No CT evidence for acute pulmonary embolism. 2. CT findings correlate with chest x-ray, fairly moderate bilateral central alveolar edema and/or le ss likely infiltrates. Correlate for fluid overload state, hypersensitive pneumonitis is in different ial.
[2018-02-18] MEDS ORDERED: SODIUM CHLORIDE 0.9% 1,000 ML IV ONE (14:31)
[2018-02-18] MEDS ORDERED: ONDANSETRON 4 MG/2 ML VIAL IVP PRN (14:31)
[2018-02-18] MEDS ORDERED: ACETAMINOPHEN TAB 325 MG TAB PO PRN (14:31)
[2018-02-18] MEDS ORDERED: NALOXONE 0.4 MG/ML 1 ML VIAL IV PRN (14:31)
[2018-02-18] MEDS ORDERED: IPRATROPIUM-ALBUTEROL 3 ML NEB INHALATION PRN (16:23)
[2018-02-18] MEDS ORDERED: TEMAZEPAM 15 MG CAP PO PRN (16:23)
[2018-02-18] MEDS ORDERED: ERGOCALCIFEROL 50,000 UNIT CAP PO SCH (16:30)
[2018-02-18] MEDS: PIPERACILLIN-TAZOBACTAM 3.375 GM in DEXTROSE/WATER 1 50ML.BAG IVPB SCH ×2 (17:17→23:46)
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
[2018-02-18] MEDS: IPRATROPIUM-ALBUTEROL 3 ML NEB INHALATION SCH (19:11)
[2018-02-18] MEDS: SYMBICORT 160-4.5 MCG INHALER INHALATION SCH (19:11)
[2018-02-18] MEDS: HEPARIN SODIUM,PORCINE 5,000 UNIT/ML 1 ML VIAL SQ SCH (21:10)
[2018-02-18] MEDS: LORazepam 2 MG/ML INJ IV PRN (21:16)
[2018-02-18] MEDS: PANTOPRAZOLE 40 MG/10 ML VIAL IV SCH (22:05)
[2018-02-19 05:46] VITALS: BP 125/78; RESP 18; TEMP 98.2
[2018-02-19] MEDS: LORazepam 2 MG/ML INJ IV PRN (06:02)
[2018-02-19] MEDS: SYMBICORT 160-4.5 MCG INHALER INHALATION SCH (07:37)
[2018-02-19] MEDS: IPRATROPIUM-ALBUTEROL 3 ML NEB INHALATION SCH (07:37)
[2018-02-19 07:42] VITALS: PULSE 88
[2018-02-19] MEDS: PANTOPRAZOLE 40 MG/10 ML VIAL IV SCH (08:04)
[2018-02-19] MEDS: PIPERACILLIN-TAZOBACTAM 3.375 GM in DEXTROSE/WATER 1 50ML.BAG IVPB SCH (08:04)
[2018-02-19] MEDS: HEPARIN SODIUM,PORCINE 5,000 UNIT/ML 1 ML VIAL SQ SCH (08:04)
[2018-02-19] MEDS ORDERED: AZITHROMYCIN 500 MG in SODIUM CHLORIDE 0.9% 250 ML IVPB SCH (09:00)
[2018-02-19] MEDS ORDERED: cefTRIAXone IN SWFI 1,000 MG/10 ML SYRINGE IVP SCH (09:00)
--- NOTE | 2018-02-19 09:02 | P.CN ---
Psychiatric Consult - . Consult date: 02/19/18 Assessment and Plan Assessment: heroin and or methadone overdose non intentional (1) Drug overdose Current Visit: Yes Status: Acute Code(s): T50.901A - POISONING BY UNSP DRUG/ MEDS/BIOL SUBST, ACCIDENTAL, INIT SNOMED Code(s): 71672565 Plan: Patient seen and evaluated; for any suicidal or homicidall ideation. He denies suicidal or homicidal and has a plan to get a job and place to live Plan :DC 1:1 and able to go home Time with Patient: Greater than 30 (Nurse from psych was with me during interview)
--- NOTE | 2018-02-19 11:49 | DS ---
DISCHARGE SUMMARY FINAL DIAGNOSES: 1. Status post overdose with multiple substances including heroin. 2. Change in mental status, metabolic encephalopathy secondary to overdose. 3. Bilateral pneumonia, possibly aspiration. 4. Increased AST, ALT, possibly acute hepatitis secondary to overdose. 5. Multiple medical issues. DISCHARGE DISPOSITION: The patient left the hospital AGAINST MEDICAL ADVICE. HISTORY OF PRESENT ILLNESS: This 42-year-old gentleman with a past medical history of multiple medical problems was admitted with overdose. Patient was given Narcan. The patient also had features of bilateral aspiration pneumonia. Patient was started on IV antibiotics. However the patient left the hospital AGAINST MEDICAL ADVICE. The prognosis remains extremely guarded throughout the hospital stay and please refer to the multiple progress notes and consultations and staff notes for further details. MMODL / IJN: [id number] / RICHARD
== END 2018-02-19 09:38 | disposition left against medical advice (07) ==
LOC: EC 09:50 → INTOOBSV 14:28 → 5MS5E 14:28 → 4MS4W 14:57 → UNDODISIN 02-19 09:38
PROVIDERS: ADMIT Hospitalist; ATTEND Hospitalist
DX: T50.991A Poisoning by other drugs, medicaments and biological substances, accidental (unintentional), initial encounter (principal); G92 Toxic encephalopathy; T40.1X1A Poisoning by heroin, accidental (unintentional), initial encounter; J18.9 Pneumonia, unspecified organism; B19.20 Unspecified viral hepatitis C without hepatic coma; F17.200 Nicotine dependence, unspecified, uncomplicated; J45.909 Unspecified asthma, uncomplicated; K21.9 Gastro-esophageal reflux disease without esophagitis; R09.02 Hypoxemia; F41.9 Anxiety disorder, unspecified; F32.9 Major depressive disorder, single episode, unspecified; F19.11 Other psychoactive substance abuse, in remission; Z59.0 Homelessness; R45.851 Suicidal ideations; Z80.6 Family history of leukemia; Z83.3 Family history of diabetes mellitus; Z86.14 Personal history of Methicillin resistant Staphylococcus aureus infection; Z87.01 Personal history of pneumonia (recurrent); Z88.6 Allergy status to analgesic agent; Z88.8 Allergy status to other drugs, medicaments and biological substances; Z53.21 Procedure and treatment not carried out due to patient leaving prior to being seen by health care provider
CPT/HCPCS: 96376 ×2; 96366 ×3; 96367; 96375 ×2; 96361; 96365; 99285; 36415; 94640 ×2; 94760; 93005; 85379; 83880; 80053; 82550; 82553; 83605; 84484; 85025; 85610; 85730; 81001; 87040; 80306; 83520 ×2; 71046; 71275; G0378 ×2; G0480; J2060 ×2; J1644 ×2; J2405; J0456; J0696; J2543 ×2; C9113 ×2; Q9967; 80320

== ENCOUNTER 2018-02-25 01:30 | Emergency (ER) | payer OTHER ==
--- NOTE | 2018-02-25 02:06 | ED ---
Skin/Abscess/FB HPI - General Source: patient, RN notes reviewed Mode of arrival: ambulatory Limitations: no limitations <Jn Lombardi - Last Filed: 02/25/18 02:33> <Shirlene Soria - Last Filed: 02/25/18 23:02> - General Chief complaint: Skin/Abscess/Foreign Body Stated complaint: Leg Pain Time Seen by Provider: 02/25/18 01:49 - History of Present Illness Initial comments: This is a 42-year-old male presents emergency Department chief complaint of bilateral feet pain. Patient states that he has multiple open sores, blisters. Patient states that he went camping recently and states that he he is homeless has been walking a lot. Patient states that he was seen at another facility and was given antibiotics any loss of prescription prior to getting filled. Patient was told he had a mild infection to his feet. Patient states that his feet feel more uncomfortable. Patient did admit that he was recently in this hospital for pneumonia approximately one week ago though he states all symptoms have resolved. Patient reports no fever no chills. Patient does admit to IV drug use and polysubstance drug abuse. (nJ Lombardi) - Related Data Home Medications Medication Instructions Recorded Confirmed Ergocalciferol (Vitamin D2) 50,000 unit PO Q30D 07/23/17 02/25/18 [Vitamin D2] QUEtiapine [SEROquel] 200 mg PO HS 02/18/18 02/25/18 buPROPion HCL [Wellbutrin XL] 300 mg PO HS 02/18/18 02/25/18 Previous Rx's Medication Instructions Recorded Ranitidine HCl [Zantac] 150 mg PO BID #20 tablet 07/30/17 Sulfamethox-Tmp 800-160Mg [Bactrim 1 each PO Q12HR #20 tab 02/25/18 Ds] Allergies Allergy/AdvReac Type Severity Reaction Status Date / Time ketorolac [From Toradol] Allergy Rash/Hives Verified 02/25/18 02:15 aspirin AdvReac Unknown Verified 02/25/18 01:35 theophylline AdvReac Unknown Verified 02/25/18 01:35 Childhood Review of Systems ROS Other: All systems not noted in ROS Statement are negative. <Jn Lombardi - Last Filed: 02/25/18 02:33> ROS Other: All systems not noted in ROS Statement are negative. <Shirlene Soria P - Last Filed: 02/25/18 23:02> ROS Statement: Those systems with pertinent positive or pertinent negative responses have been documented in the HPI. Past Medical History Past Medical History: Asthma, GERD/Reflux, Liver Disease, Pneumonia Additional Past Medical History / Comment(s): Hepatitis C, IVDA, past ODs, carpal tunnel syndrome bilaterally, past RFA abscess with surgery. History of Any Multi-Drug Resistant Organisms: MRSA, None Reported Date of last positivie culture/infection: 2011(per pt) MDRO Source:: LEFT ANKLE Past Surgical History: No Surgical Hx Reported Additional Past Surgical History / Comment(s): right forearm abcess, bilateral inguinal hernia repairs as an infant. Past Anesthesia/Blood Transfusion Reactions: No Reported Reaction Past Psychological History: Anxiety, Depression Smoking Status: Current every day smoker - Past Family History Mother Family Medical History: Cancer Additional Family Medical History / Comment(s): Mother had leukemia. She is . Father Family Medical History: Diabetes Mellitus Additional Family Medical History / Comment(s): Father is . <Jn Lombardi M - Last Filed: 02/25/18 02:33> General Exam Limitations: no limitations General appearance: alert, in no apparent distress Head exam: Present: atraumatic, normocephalic, normal inspection Respiratory exam: Present: normal lung sounds bilaterally. Absent: respiratory distress, wheezes, rales, rhonchi, stridor Cardiovascular Exam: Present: regular rate, normal rhythm, normal heart sounds. Absent: systolic murmur, diastolic murmur, rubs, gallop, clicks Extremities exam: Present: other (Bilateral feet pulses equal bilaterally neurovascular intact there are multiple blisters are open, mild erythema mild drainage from open sites.) Skin exam: Present: warm, dry <Jn Lombardi M - Last Filed: 02/25/18 02:33> Vital Signs 02/25/18 02/25/18 02/25/18 01:32 02:13 02:42 Temperature 99 F 98.0 F Pulse Rate 89 109 H 106 H Respiratory 18 Rate Blood Pressure 139/79 117/71 123/80 O2 Sat by Pulse 97 98 99 Oximetry Medical Decision Making - Lab Data Result diagrams: 02/25/18 02:01 02/25/18 02:01 <Jn Lmobardi - Last Filed: 02/25/18 02:33> - Lab Data Result diagrams: 02/25/18 02:01 02/25/18 02:01 <Shirlene Soria - Last Filed: 02/25/18 23:02> - Medical Decision Making 42-year-old male presented for bilateral feet pain, blisters. Patient does have multiple open sores, multiple blisters there is concern for early signs of cellulitis of his feet. Patient had lab work which shows elevated liver functions which is present on prior labs secondary to IV drug use. Patient will be prescribed Bactrim at this time advised to clean the wounds twice daily and return for any worsening symptoms. (Jn Lombardi) I was available for consultation in the emergency department. The history and physical exam were done by the midlevel provider. I was consulted for this patient's care. I reviewed the case with the midlevel provider and based on their presentation of the patient, I agree with the assessment, medical decision making and plan of care as documented. (Shirlene Soria) - Lab Data Lab Results 02/25/18 02/25/18 Range/Units 02:01 02:01 WBC 8.9 (3.8-10.6) k/uL RBC 4.50 (4.30-5.90) m/uL Hgb 14.7 (13.0-17.5) gm/dL Hct 42.0 (39.0-53.0) % MCV 93.3 (80.0-100.0) fL MCH 32.7 (25.0-35.0) pg MCHC 35.1 (31.0-37.0) g/dL RDW 13.7 (11.5-15.5) % Plt Count 223 (150-450) k/uL Neutrophils % 73 % Lymphocytes % 15 % Monocytes % 8 % Eosinophils % 2 % Basophils % 0 % Neutrophils # 6.4 (1.3-7.7) k/uL Lymphocytes # 1.3 (1.0-4.8) k/uL Monocytes # 0.7 (0-1.0) k/uL Eosinophils # 0.2 (0-0.7) k/uL Basophils # 0.0 (0-0.2) k/uL Sodium 140 (137-145) mmol/L Potassium 3.4 L (3.5-5.1) mmol/L Chloride 103 (98-107) mmol/L Carbon Dioxide 25 (22-30) mmol/L Anion Gap 12 mmol/L BUN 11 (9-20) mg/dL Creatinine 0.70 (0.66-1.25) mg/dL Est GFR (CKD-EPI)AfAm >90 (>60 ml/min/1.73 sqM) Est GFR (CKD-EPI)NonAf >90 (>60 ml/min/1.73 sqM) Glucose 107 H (74-99) mg/dL Calcium 8.9 (8.4-10.2) mg/dL Total Bilirubin 2.3 H (0.2-1.3) mg/dL AST 262 H (17-59) U/L ALT 310 H (21-72) U/L Alkaline Phosphatase 73 (38-126) U/L Total Protein 7.3 (6.3-8.2) g/dL Albumin 3.9 (3.5-5.0) g/dL Disposition Is patient prescribed a controlled substance at d/c from ED?: No Time of Disposition: 02:35 <Jn Lombardi M - Last Filed: 02/25/18 02:33> <Shirlene Soria - Last Filed: 02/25/18 23:02> Clinical Impression: Blister of foot, infected Disposition: HOME SELF-CARE Condition: Stable Instructions: Wound Infection (DC) Additional Instructions: Please return to the Emergency Department if symptoms worsen or any other concerns. Prescriptions: Sulfamethox-Tmp 800-160Mg [Bactrim Ds] 1 each PO Q12HR #20 tab Referrals: Vignesh Killian DO [Primary Care Provider] - 1-2 days
[2018-02-25] MEDS: KETOROLAC 30 MG/ML 1 ML VIAL IVP STA ×2 (02:07→02:14)
[2018-02-25 02:12] LABS: Basophils % (A) 0 %; Eosinophils # (A) 0.2 k/uL (0-0.7); Eosinophils % (A) 2 %; HGB 14.7 gm/dL (13.0-17.5); Lymphocytes # (A) 1.3 k/uL (1.0-4.8); Lymphocytes % (A) 15 %; MCH 32.7 pg (25.0-35.0); MCHC 35.1 g/dL (31.0-37.0); MCV 93.3 fL (80.0-100.0); Monocytes # (A) 0.7 k/uL (0-1.0); Monocytes % (A) 8 %; Neutrophils # (A) 6.4 k/uL (1.3-7.7); Neutrophils % (A) 73 %; Platelet Count 223 k/uL (150-450); RDW 13.7 % (11.5-15.5); WBC 8.9 k/uL (3.8-10.6)
[2018-02-25 02:13] VITALS: RESP 18
[2018-02-25 02:15] VITALS: TEMP 98
[2018-02-25 02:21] LABS: ALT 310 U/L (21-72); AST 262 U/L (17-59); Albumin 3.9 g/dL (3.5-5.0); Alkaline Phosphatase 73 U/L (38-126); Anion Gap 12 mmol/L; Blood Urea Nitrogen 11 mg/dL (9-20); Calcium 8.9 mg/dL (8.4-10.2); Carbon Dioxide 25 mmol/L (22-30); Chloride 103 mmol/L (98-107); Glucose 107 mg/dL (74-99); Potassium 3.4 mmol/L (3.5-5.1); Sodium 140 mmol/L (137-145); Total Bilirubin 2.3 mg/dL (0.2-1.3); Total Protein 7.3 g/dL (6.3-8.2)
[2018-02-25] MEDS ORDERED: SULFAMETH-TMP DS STARTER PACK 2 TAB BTL PO STA (02:36)
[2018-02-25 02:43] VITALS: BP 123/80; PULSE 106
[2018-02-25] MEDS ORDERED: IBUPROFEN 600 MG TAB PO STA (02:46)
== END 2018-02-25 02:52 | disposition home or self-care (01) ==
LOC: EC 01:30
DX: S90.822A Blister (nonthermal), left foot, initial encounter (principal); S90.821A Blister (nonthermal), right foot, initial encounter; L08.9 Local infection of the skin and subcutaneous tissue, unspecified; F32.9 Major depressive disorder, single episode, unspecified; F41.9 Anxiety disorder, unspecified; F17.200 Nicotine dependence, unspecified, uncomplicated; Z86.19 Personal history of other infectious and parasitic diseases; Z86.14 Personal history of Methicillin resistant Staphylococcus aureus infection; Z79.899 Other long term (current) drug therapy; Z88.6 Allergy status to analgesic agent; Z88.8 Allergy status to other drugs, medicaments and biological substances; Z59.0 Homelessness; Z53.8 Procedure and treatment not carried out for other reasons
CPT/HCPCS: 36415; 80053; 85025; 87040; 99283

== ENCOUNTER 2018-02-27 23:41 | Emergency (ER) | payer OTHER ==
[2018-02-27 23:47] VITALS: RESP 20; TEMP 98.3
[2018-02-28 01:44] LABS: Amphetamine Screen,Urine Detected (NotDetected); Barbiturate Screen,Urine Not Detected (NotDetected); Benzodiazepines Screen,Urine Detected (NotDetected); Cocaine Screen,Urine Detected (NotDetected); Methadone Screen, Urine Not Detected (NotDetected); Opiate Screen,Urine Not Detected (NotDetected); Oxycodone Screen, Urine Not Detected (NotDetected); Phencyclidine Screen,Urine Not Detected (NotDetected); Tricyclic Antidepressant,Urine Not Detected (NotDetected); Urn Cannabinoid Scrn Detected (NotDetected)
[2018-02-28] MEDS ORDERED: IBUPROFEN 600 MG TAB PO STA (02:26)
[2018-02-28] MEDS ORDERED: ACETAMINOPHEN TAB 325 MG TAB PO STA (02:26)
[2018-02-28] MEDS ORDERED: SULFAMETHOX-TMP 800-160MG 1 EACH TAB PO STA (02:40)
[2018-02-28] MEDS ORDERED: LORazepam 1 MG TAB PO STA ×2 (02:40→08:26)
--- NOTE | 2018-02-28 04:20 | ED ---
Psych HPI - General Source: patient Mode of arrival: ambulatory - History of Present Illness MD Complaint: suicidal ideation, feels depressed -: week(s) Associated Psychiatric Symptoms: depression, racing thoughts, auditory hallucinations, visual hallucinations, delusions Quality: getting worse Improves With: none Worsens With: drug use Context: recent drug abuse Associated Symptoms: denies other symptoms <Raymundo Aguilar - Last Filed: 02/28/18 04:15> <Jose Sanderson - Last Filed: 03/20/18 14:23> - General Chief Complaint: Psychiatric Symptoms Stated Complaint: SUICIDAL Time Seen by Provider: 02/27/18 23:48 - History of Present Illness Initial Comments: 's patient is a 42-year-old man who presents to be evaluated for worsening mood as well as suicidal ideation. The patient states that over the past couple of weeks his mood is been getting worse. He now also is having persistent thoughts of ending his life by overdosing on heroin. Patient states that he has lost everything and doesn't really have anything to live for. Patient also describes hearing voices. He is also describing some delusional thought content on them and that there narcotics officers after him here in the hospital. (Raymundo Aguilar) - Related Data Home Medications Medication Instructions Recorded Confirmed Ergocalciferol (Vitamin D2) 50,000 unit PO Q30D 07/23/17 02/27/18 [Vitamin D2] QUEtiapine [SEROquel] 200 mg PO HS 02/18/18 02/27/18 buPROPion HCL [Wellbutrin XL] 300 mg PO HS 02/18/18 02/27/18 Sulfamethox-Tmp 800-160Mg [Bactrim 1 tab PO Q12HR 02/27/18 02/27/18 Ds] Previous Rx's Medication Instructions Recorded Ranitidine HCl [Zantac] 150 mg PO BID #20 tablet 07/30/17 Allergies Allergy/AdvReac Type Severity Reaction Status Date / Time ketorolac [From Toradol] Allergy Rash/Hives Verified 02/27/18 23:49 aspirin AdvReac Unknown Verified 02/27/18 23:49 theophylline AdvReac Unknown Verified 02/27/18 23:49 Childhood Review of Systems ROS Other: All systems not noted in ROS Statement are negative. Constitutional: Denies: fever Respiratory: Denies: cough, dyspnea Cardiovascular: Denies: chest pain, palpitations Gastrointestinal: Denies: abdominal pain, vomiting, diarrhea Genitourinary: Denies: dysuria Musculoskeletal: Denies: back pain Skin: Denies: rash Neurological: Denies: headache Psychiatric: Reports: depression, auditory hallucinations, suicidal thoughts. Denies: homicidal thoughts <Raymundo Aguilar - Last Filed: 02/28/18 04:15> ROS Other: All systems not noted in ROS Statement are negative. <LeviJose dow Kimber - Last Filed: 03/20/18 14:23> ROS Statement: Those systems with pertinent positive or pertinent negative responses have been documented in the HPI. Past Medical History Past Medical History: Asthma, GERD/Reflux, Liver Disease, Pneumonia Additional Past Medical History / Comment(s): Hepatitis C, IVDA, past ODs, carpal tunnel syndrome bilaterally, past RFA abscess with surgery. History of Any Multi-Drug Resistant Organisms: MRSA, None Reported Date of last positivie culture/infection: 2011(per pt) MDRO Source:: LEFT ANKLE Past Surgical History: No Surgical Hx Reported Additional Past Surgical History / Comment(s): right forearm abcess, bilateral inguinal hernia repairs as an . Past Anesthesia/Blood Transfusion Reactions: No Reported Reaction Past Psychological History: Anxiety, Depression Smoking Status: Current every day smoker Past Alcohol Use History: Occasional Past Drug Use History: Heroin, Marijuana, Methamphetamine - Past Family History Mother Family Medical History: Cancer Additional Family Medical History / Comment(s): Mother had leukemia. She is . Father Family Medical History: Diabetes Mellitus Additional Family Medical History / Comment(s): Father is . <Raymundo Aguilar - Last Filed: 02/28/18 04:15> General Exam Limitations: no limitations General appearance: alert, in no apparent distress Head exam: Present: atraumatic, normocephalic Eye exam: Present: normal appearance Respiratory exam: Present: normal lung sounds bilaterally. Absent: respiratory distress, wheezes, rales, rhonchi, stridor Cardiovascular Exam: Present: normal rhythm, tachycardia (Rate approximately 104 on exam), normal heart sounds. Absent: systolic murmur, diastolic murmur, rubs, gallop GI/Abdominal exam: Present: soft. Absent: distended, tenderness, guarding, rebound, rigid, mass Extremities exam: Present: normal capillary refill. Absent: pedal edema, calf tenderness Neurological exam: Present: alert Psychiatric exam: Present: normal affect, depressed, manic, suicidal ideation. Absent: agitated, anxious, flat affect, homicidal ideation Skin exam: Present: warm, dry, intact, normal color, other (Patient does have small area of cellulitis to the dorsum of the right hand. No palpable abscess evident.). Absent: rash <Raymundo Aguilar - Last Filed: 02/28/18 04:15> Vital Signs 02/27/18 02/28/18 23:44 04:54 Temperature 98.3 F Pulse Rate 115 H 105 H Respiratory 20 20 Rate Blood Pressure 167/88 144/93 O2 Sat by Pulse 98 99 Oximetry Medical Decision Making <Raymundo Aguilar - Last Filed: 02/28/18 04:15> - Lab Data Result diagrams: 02/28/18 04:45 02/28/18 04:45 <Jose Sanderson - Last Filed: 03/20/18 14:23> - Medical Decision Making Patient's 42-year-old man with depression and some suicidal ideation. He does have area of cellulitis of dorsum the right hand that will be treated, and he is cleared for psychiatric evaluation. (Raymundo Aguilar) Patient is sent out to me by previous shift physician. Briefly, patient is a 42 -year-old male with depression and suicidal ideation. Patient vital by EPS and recommended transfer to inpatient psychiatry. (Jose Sanderson) - Lab Data Lab Results 02/28/18 02/28/18 02/28/18 Range/Units 01:06 04:45 04:45 WBC 5.7 (3.8-10.6) k/uL RBC 4.05 L (4.30-5.90) m/uL Hgb 13.1 (13.0-17.5) gm/dL Hct 38.5 L (39.0-53.0) % MCV 95.1 (80.0-100.0) fL MCH 32.3 (25.0-35.0) pg MCHC 34.0 (31.0-37.0) g/dL RDW 14.2 (11.5-15.5) % Plt Count 169 (150-450) k/uL Neutrophils % 70 % Lymphocytes % 19 % Monocytes % 7 % Eosinophils % 2 % Basophils % 0 % Neutrophils # 4.0 (1.3-7.7) k/uL Lymphocytes # 1.1 (1.0-4.8) k/uL Monocytes # 0.4 (0-1.0) k/uL Eosinophils # 0.1 (0-0.7) k/uL Basophils # 0.0 (0-0.2) k/uL Sodium 138 (137-145) mmol/L Potassium 2.9 L (3.5-5.1) mmol/L Chloride 103 (98-107) mmol/L Carbon Dioxide 29 (22-30) mmol/L Anion Gap 6 mmol/L BUN 7 L (9-20) mg/dL Creatinine 0.51 L (0.66-1.25) mg/dL Est GFR (CKD-EPI)AfAm >90 (>60 ml/min/1.73 sqM) Est GFR (CKD-EPI)NonAf >90 (>60 ml/min/1.73 sqM) Glucose 100 H (74-99) mg/dL Calcium 8.4 (8.4-10.2) mg/dL Urine Opiates Screen Not Detected (NotDetected) Ur Oxycodone Screen Not Detected (NotDetected) Urine Methadone Screen Not Detected (NotDetected) Ur Propoxyphene Screen Not Detected (NotDetected) Ur Barbiturates Screen Not Detected (NotDetected) U Tricyclic Antidepress Not Detected (NotDetected) Ur Phencyclidine Scrn Not Detected (NotDetected) Ur Amphetamines Screen Detected H (NotDetected) U Methamphetamines Scrn Detected H (NotDetected) U Benzodiazepines Scrn Detected H (NotDetected) Urine Cocaine Screen Detected H (NotDetected) U Marijuana (THC) Screen Detected H (NotDetected) Disposition <Raymundo Aguilar - Last Filed: 02/28/18 04:15> Is patient prescribed a controlled substance at d/c from ED?: No Time of Disposition: 14:23 - Out of Hospital Transfer - Req. Specs Out of Hospital Transfer - Requested Specifics: Psychiatric Non-ICU <Jose Sanderson - Last Filed: 03/20/18 14:23> Clinical Impression: Suicidal ideation Disposition: OTHER INSTITUTION NOT DEFINED Condition: Fair Referrals: Vignesh Killian DO [Primary Care Provider] - 1-2 days
[2018-02-28 04:54] VITALS: BP 144/93; PULSE 105
[2018-02-28 04:59] LABS: Basophils % (A) 0 %; Eosinophils # (A) 0.1 k/uL (0-0.7); Eosinophils % (A) 2 %; HCT 38.5 % (39.0-53.0); HGB 13.1 gm/dL (13.0-17.5); Lymphocytes # (A) 1.1 k/uL (1.0-4.8); Lymphocytes % (A) 19 %; MCH 32.3 pg (25.0-35.0); MCV 95.1 fL (80.0-100.0); Mean Platelet Volume 6.9; Monocytes # (A) 0.4 k/uL (0-1.0); Monocytes % (A) 7 %; Neutrophils % (A) 70 %; Platelet Count 169 k/uL (150-450); RBC 4.05 m/uL (4.30-5.90); RDW 14.2 % (11.5-15.5); WBC 5.7 k/uL (3.8-10.6)
[2018-02-28 05:08] LABS: Anion Gap 6 mmol/L; Blood Urea Nitrogen 7 mg/dL (9-20); Calcium 8.4 mg/dL (8.4-10.2); Carbon Dioxide 29 mmol/L (22-30); Chloride 103 mmol/L (98-107); Glucose 100 mg/dL (74-99); Potassium 2.9 mmol/L (3.5-5.1); Sodium 138 mmol/L (137-145)
[2018-02-28] MEDS ORDERED: LORazepam 1 MG TAB PO PRN (11:22)
--- NOTE | 2018-03-03 02:24 | CDI ---
Documentation Clarification OP Dear Dr. Jeff Fonseca Please provide clinical impression. Thank you, Higinio Carrero Electronic Assembler If you have any questions, please contact Pipe Installer at [phone] [facility]
== END 2018-02-28 14:14 | disposition other institution (70) ==
LOC: EC 23:41
DX: R45.851 Suicidal ideations (principal); L03.114 Cellulitis of left upper limb; F22 Delusional disorders; F41.9 Anxiety disorder, unspecified; F32.9 Major depressive disorder, single episode, unspecified; F17.200 Nicotine dependence, unspecified, uncomplicated; Z86.14 Personal history of Methicillin resistant Staphylococcus aureus infection; Z79.899 Other long term (current) drug therapy; Z88.6 Allergy status to analgesic agent; Z88.8 Allergy status to other drugs, medicaments and biological substances
CPT/HCPCS: 36415; 80048; 80306; 82075; 85025; 99285

== ENCOUNTER 2018-06-07 02:54 | Emergency (ER) | payer OTHER ==
[2018-06-07] MEDS ORDERED: LIDOCAINE 1% INJ 10MG/ML (20 ML MDV) SQ STA (03:29)
[2018-06-07] MEDS ORDERED: IBUPROFEN 600 MG STARTER PACK 4 TAB BTL PO STA (03:51)
[2018-06-07] MEDS ORDERED: SULFAMETH-TMP DS STARTER PACK 2 TAB BTL PO STA (03:51)
[2018-06-07] MEDS ORDERED: ACETAMINOPHEN TAB 500 MG TAB PO STA (03:51)
--- NOTE | 2018-06-07 03:54 | ED ---
General Adult HPI - General Chief complaint: Skin/Abscess/Foreign Body Stated complaint: Abscess Time Seen by Provider: 06/07/18 03:19 Source: patient, RN notes reviewed Mode of arrival: ambulatory Limitations: no limitations - History of Present Illness Initial comments: Patient 43-year-old male presented to the emergency room today with a chief complaint of an abscess located to the back of the left hand. Patient does admit to being a heroin user. Patient states that he noticed swelling the last 2 days. He does admit that he's had abscess under this in the past. Denies any other complaints or symptoms. Patient denies any recent fever, chills, shortness of breath, chest pain, back pain, abdominal pain, nausea or vomiting, constipation or diarrhea, headaches or visual changes, or any other complaints. - Related Data Home Medications Medication Instructions Recorded Confirmed Ergocalciferol (Vitamin D2) 50,000 unit PO Q30D 07/23/17 02/27/18 [Vitamin D2] QUEtiapine [SEROquel] 200 mg PO HS 02/18/18 02/27/18 buPROPion HCL [Wellbutrin XL] 300 mg PO HS 02/18/18 02/27/18 Sulfamethox-Tmp 800-160Mg [Bactrim 1 tab PO Q12HR 02/27/18 02/27/18 Ds] Previous Rx's Medication Instructions Recorded Ranitidine HCl [Zantac] 150 mg PO BID #20 tablet 07/30/17 Sulfamethox-Tmp 800-160Mg [Bactrim 1 tab PO Q12HR #20 tab 06/07/18 DS 800-160 mg] Allergies Allergy/AdvReac Type Severity Reaction Status Date / Time ketorolac [From Toradol] Allergy Rash/Hives Verified 02/27/18 23:49 aspirin AdvReac Unknown Verified 02/27/18 23:49 theophylline AdvReac Unknown Verified 02/27/18 23:49 Childhood Review of Systems ROS Statement: Those systems with pertinent positive or pertinent negative responses have been documented in the HPI. ROS Other: All systems not noted in ROS Statement are negative. Past Medical History Past Medical History: Asthma, GERD/Reflux, Liver Disease, Pneumonia Additional Past Medical History / Comment(s): Hepatitis C, IVDA, past ODs, carpal tunnel syndrome bilaterally, past RFA abscess with surgery. History of Any Multi-Drug Resistant Organisms: MRSA, None Reported Date of last positivie culture/infection: 2011(per pt) MDRO Source:: LEFT ANKLE Past Surgical History: No Surgical Hx Reported Additional Past Surgical History / Comment(s): right forearm abcess, bilateral inguinal hernia repairs as an . Past Anesthesia/Blood Transfusion Reactions: No Reported Reaction Past Psychological History: Anxiety, Depression Smoking Status: Current every day smoker Past Alcohol Use History: Occasional Past Drug Use History: Heroin, Marijuana, Methamphetamine - Past Family History Mother Family Medical History: Cancer Additional Family Medical History / Comment(s): Mother had leukemia. She is . Father Family Medical History: Diabetes Mellitus Additional Family Medical History / Comment(s): Father is . General Exam - General Exam Comments Initial Comments: General: The patient is awake and alert, in no distress, and does not appear acutely ill. Musculoskeletal: Normal ROM, no tenderness. Strength 5/5. Sensation intact. Pulses equal bilaterally 2+. Neurological: A&O x 3. CN II-XII intact, There are no obvious motor or sensory deficits. Coordination appears grossly intact. Speech is normal. Skin: [place] does have some mild swelling down to the left hand. There is an abscess to the posterior aspect measures approximately 1.5 cm across. There is an area that is fluctuant centrally. Psychiatric: Cooperative, appropriate mood & affect, normal judgment. Limitations: no limitations Course Vital Signs 06/07/18 02:55 Temperature 97.7 F Pulse Rate 111 H Respiratory 18 Rate Blood Pressure 144/95 O2 Sat by Pulse 97 Oximetry Medical Decision Making - Medical Decision Making Procedure: Incision and drainage The skin overlying the abscess was prepped with Betadine, and anesthetized with 1% lidocaine without epinephrine. A #11 scalpel was then used to incise the abscess. Some purulent material was then extracted from the lesion Gauze dressing placed on top, The patient tolerated the procedure well. Disposition Clinical Impression: Abscess Disposition: HOME SELF-CARE Condition: Good Instructions: Abscess (ED) Additional Instructions: Please continue warm compresses to the area at least 4 times daily. Please use medication as discussed. Please follow-up with family doctor in the next 2 days of symptoms have not improved. Please return to emergency room if the symptoms increase or worsen or for any other concerns. Prescriptions: Sulfamethox-Tmp 800-160Mg [Bactrim DS 800-160 mg] 1 tab PO Q12HR #20 tab Is patient prescribed a controlled substance at d/c from ED?: No Referrals: None,Stated [Primary Care Provider] - 1-2 days Time of Disposition: 03:54
[2018-06-07 04:36] VITALS: BP 148/78; PULSE 105; RESP 16; TEMP 98.8
== END 2018-06-07 04:36 | disposition home or self-care (01) ==
LOC: EC 02:54
DX: L02.512 Cutaneous abscess of left hand (principal); F32.9 Major depressive disorder, single episode, unspecified; F41.9 Anxiety disorder, unspecified; F17.200 Nicotine dependence, unspecified, uncomplicated; Z88.6 Allergy status to analgesic agent; Z88.8 Allergy status to other drugs, medicaments and biological substances; Z79.899 Other long term (current) drug therapy; Z86.14 Personal history of Methicillin resistant Staphylococcus aureus infection; Z87.01 Personal history of pneumonia (recurrent); Z98.890 Other specified postprocedural states
CPT/HCPCS: 99283; 10060; J2001

== ENCOUNTER 2018-06-10 09:14 | Observation (INO) | payer OTHER ==
[2018-06-10] MEDS ORDERED: ACETAMINOPHEN IV (For NPO) 1,000 MG in EMPTY BAG 1 BAG IVPB STA (09:48)
[2018-06-10] MEDS ORDERED: SODIUM CHLORIDE 0.9% 1,000 ML IV STA (09:53)
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
[2018-06-10] MEDS ORDERED: VANCOMYCIN IV PER PHARMACY 1 EACH MISC MISCELLANE PRN (10:37)
[2018-06-10] MEDS ORDERED: VANCOMYCIN 1,500 MG in SODIUM CHLORIDE 0.9% 250 ML IVPB ONE (11:00)
[2018-06-10 11:12] LABS: ALT 142 U/L (21-72); AST 135 U/L (17-59); Albumin 3.5 g/dL (3.5-5.0); Alkaline Phosphatase 83 U/L (38-126); Anion Gap 9 mmol/L; Blood Urea Nitrogen 13 mg/dL (9-20); Calcium 8.3 mg/dL (8.4-10.2); Carbon Dioxide 23 mmol/L (22-30); Chloride 98 mmol/L (98-107); Glucose 109 mg/dL (74-99); Potassium 4.1 mmol/L (3.5-5.1); Sodium 130 mmol/L (137-145); Total Bilirubin 0.8 mg/dL (0.2-1.3); Total Protein 7.1 g/dL (6.3-8.2)
[2018-06-10 11:14] LABS: HGB 13.7 gm/dL (13.0-17.5); MCH 30.8 pg (25.0-35.0); MCHC 33.5 g/dL (31.0-37.0); MCV 91.9 fL (80.0-100.0); Mean Platelet Volume 6.8; Platelet Count 131 k/uL (150-450); RBC 4.46 m/uL (4.30-5.90); RDW 13.3 % (11.5-15.5); WBC 5.4 k/uL (3.8-10.6)
[2018-06-10 11:37] LABS: Band Neutrophils % 2 %; Eosinophils # (M) 0.05 k/uL (0-0.7); Lymphocytes # (M) 0.59 k/uL (1.0-4.8); Monocytes # (M) 0.38 k/uL (0-1.0); Neutrophils % (M) 79 %; Nucleated Red Blood Cells 0 /100 WBC (0-0); Polychromasia Present; Total Cells Counted 100
--- NOTE | 2018-06-10 11:47 | CT ---
EXAMINATION TYPE: CT facial bones wo con DATE OF EXAM: 06/10/2018 COMPARISON: None HISTORY: Pain, unresponsive at time of exam CT DLP: 1057.9 mGycm CONTRAST: 0 mL of Isovue 300 The facial bones are examined in the axial plane at 2 mm thick sections. Reconstructed images in the coronal plane were obtained. There is dental amalgam scatter artifact There is opacification of the left maxillary sinus. Minimal mucosal thickening is within the right ma xillary sinus. Mild mucosal thickenings within ethmoid air cells. The frontal sinuses appear hypoplas tic. Sphenoid sinuses are clear. Mastoid air cells are clear. The septum is evaluated. There is septal deviation to the right. The ostiomeatal units are obstructed bilaterally. No acute fractures are identified. Orbits appear symmetrical. Greater wings of sphenoid appear intact . Zygomatic arches are intact. Temporomandibular joint spaces appear normal. IMPRESSIONS: 1. Paranasal sinus disease. 2. No acute posttraumatic changes evident.
--- NOTE | 2018-06-10 11:53 | CT ---
EXAMINATION TYPE: CT brain nestor wo con DATE OF EXAM: 06/10/2018 COMPARISON: None HISTORY: pain, unresponsive at time of exam. CT DLP: 1050.9 mGycm, Automated exposure control for dose reduction was used. CONTRAST: Patient injected with 0 mL of Isovue 300. CT of the brain is performed utilizing 3 mm thick sections through the posterior fossa and 3 mm thick sections through the remaining calvarium. Study is performed within 24 hours of arrival to the hospital. No abnormal hyperdensity is present to suggest an acute intracranial hemorrhage. No mass lesion is evident. No acute infarcts are evident. Ventricles and sulci are appropriate for the patient age. Paranasal sinuses are further evaluated on facial bone study. IMPRESSIONS: 1. No acute intracranial process. 2. Mucosal thickening through paranasal sinuses as discussed facial bone study. CT cervical spine. COMPARISON: None CT of the cervical spine is performed in the axial plane at 2 mm thick sections. Reconstructed image s in the coronal, and sagittal plane are reviewed on the computer. No acute fractures are evident. Vertebral body alignment is normal. There is diffuse disc space narrowing throughout the cervical spine. This is most notable at C4-5. So me vacuum disc phenomenon may be present C5-6. Vertebral body heights are preserved. No spinal canal stenosis is evident. Posterior endplate spurring is noted C5-6 and to the right parac entral region. A spur is present on the right paracentral endplate of C5 with moderate anterior theca l sac compression. This could having effect on the exiting right nerve root. Clinical correlation rec ommended. A smaller right paracentral C4 endplate spur is present. Mild foraminal narrowing is presen t C4-5. IMPRESSIONS: 1. Degenerative changes within the cervical spine greatest at C4-5 C5-6 as discussed above. 2. No acute osseous abnormality.
--- NOTE | 2018-06-10 12:24 | XR ---
EXAMINATION TYPE: XR chest 2V DATE OF EXAM: 06/10/2018 COMPARISON: 02/18/2018 HISTORY: Chest pain TECHNIQUE: Frontal and lateral views of the chest are obtained. FINDINGS: Chronic appearing perihilar infiltrates. Lung volumes are diminished. Overall limited examination. No evidence for pneumothorax. No pleural effusion. The cardiac silhouette size is within normal limits. The osseous structures are grossly intact. IMPRESSION: 1. Chronic appearing perihilar infiltrates. Lung volumes are diminished. Overall limited examination .
[2018-06-10] MEDS ORDERED: ONDANSETRON 4 MG/2 ML VIAL IVP PRN (13:24)
[2018-06-10] MEDS ORDERED: NALOXONE 0.4 MG/ML 1 ML VIAL IV PRN (13:24)
[2018-06-10 15:07] VITALS: BP 104/68; PULSE 65; RESP 16; TEMP 98.2
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
[2018-06-11] MEDS ORDERED: VANCOMYCIN 1,500 MG in SODIUM CHLORIDE 0.9% 250 ML IVPB SCH ×2
== END 2018-06-10 15:34 | disposition left against medical advice (07) ==
LOC: EC 09:14 → 4SSUR 13:21
PROVIDERS: ADMIT Internal Medicine; ATTEND Internal Medicine
DX: L02.512 Cutaneous abscess of left hand (principal); L03.114 Cellulitis of left upper limb; D69.6 Thrombocytopenia, unspecified; E87.1 Hypo-osmolality and hyponatremia; F11.20 Opioid dependence, uncomplicated; B19.20 Unspecified viral hepatitis C without hepatic coma; R74.8 Abnormal levels of other serum enzymes; R00.0 Tachycardia, unspecified; K21.9 Gastro-esophageal reflux disease without esophagitis; F19.10 Other psychoactive substance abuse, uncomplicated; Z53.21 Procedure and treatment not carried out due to patient leaving prior to being seen by health care provider; G56.03 Carpal tunnel syndrome, bilateral upper limbs; F41.9 Anxiety disorder, unspecified; F32.9 Major depressive disorder, single episode, unspecified; F17.200 Nicotine dependence, unspecified, uncomplicated; R51 Headache; R52 Pain, unspecified; Y04.8XXA Assault by other bodily force, initial encounter; Z86.14 Personal history of Methicillin resistant Staphylococcus aureus infection; Z87.01 Personal history of pneumonia (recurrent); Z80.6 Family history of leukemia; Z83.3 Family history of diabetes mellitus
CPT/HCPCS: 96361; 96365; 96367; 96375; 99285; 36415; 80053; 83605; 85025; 87040; 71046; 72125; 70486; 70450; G0378; J3370; J0696; J0131

== ENCOUNTER 2018-06-10 20:23 | Inpatient (IN) | payer OTHER ==
[2018-06-10] MEDS ORDERED: IBUPROFEN 600 MG TAB PO STA (21:01)
[2018-06-10] MEDS ORDERED: ACETAMINOPHEN TAB 500 MG TAB PO STA (21:01)
[2018-06-10] MEDS ORDERED: VANCOMYCIN IV PER PHARMACY 1 EACH MISC MISCELLANE PRN (21:14)
[2018-06-10] MEDS ORDERED: VANCOMYCIN 1,500 MG in SODIUM CHLORIDE 0.9% 250 ML IVPB STA (21:17)
--- NOTE | 2018-06-10 21:20 | ED ---
Skin/Abscess/FB HPI - General Chief complaint: Skin/Abscess/Foreign Body Stated complaint: blood infection-revisit Time Seen by Provider: 06/10/18 20:41 Source: patient, RN notes reviewed, old records reviewed Mode of arrival: ambulatory Limitations: no limitations - History of Present Illness Initial comments: 43-year-old male with history of IV drug abuse presents return today for reevaluation. He left AGAINST MEDICAL ADVICE earlier today. Patient was diagnosed with possibility of bacteremia from endocarditis. He has failed outpatient treatment for left hand and arm abscess due to IV drug use. Patient is quite upset with his care that he received earlier. He is here with his significant other who states that he will stay in the hospital at this time. Patient agrees for admission. He reports emergency department today with a temperature of 101.7. - Related Data Previous Rx's Medication Instructions Recorded Sulfamethox-Tmp 800-160Mg [Bactrim 1 tab PO Q12HR #20 tab 06/07/18 DS 800-160 mg] Allergies Allergy/AdvReac Type Severity Reaction Status Date / Time ketorolac [From Toradol] Allergy Rash/Hives Verified 06/10/18 21:29 aspirin AdvReac Unknown Verified 06/10/18 21:29 theophylline AdvReac Unknown Verified 06/10/18 21:29 Childhood Review of Systems ROS Statement: Those systems with pertinent positive or pertinent negative responses have been documented in the HPI. ROS Other: All systems not noted in ROS Statement are negative. Past Medical History Past Medical History: Asthma, GERD/Reflux, Liver Disease, Pneumonia Additional Past Medical History / Comment(s): Hepatitis C, IVDA, past ODs, carpal tunnel syndrome bilaterally, past RFA abscess with surgery. History of Any Multi-Drug Resistant Organisms: MRSA, None Reported Date of last positivie culture/infection: 2011(per pt) MDRO Source:: LEFT ANKLE Past Surgical History: No Surgical Hx Reported Additional Past Surgical History / Comment(s): right forearm abcess, bilateral inguinal hernia repairs as an . Past Anesthesia/Blood Transfusion Reactions: No Reported Reaction Past Psychological History: Anxiety, Depression Smoking Status: Current every day smoker Past Alcohol Use History: Occasional Past Drug Use History: Heroin, Marijuana, Methamphetamine - Past Family History Mother Family Medical History: Cancer Additional Family Medical History / Comment(s): Mother had leukemia. She is . Father Family Medical History: Diabetes Mellitus Additional Family Medical History / Comment(s): Father is . General Exam - General Exam Comments Initial Comments: 43-year-old male. Alert and oriented. Patient appears in no significant distress. Limitations: no limitations General appearance: alert, in no apparent distress Head exam: Present: atraumatic, normocephalic, normal inspection Eye exam: Present: normal appearance, PERRL, EOMI. Absent: scleral icterus, conjunctival injection, periorbital swelling ENT exam: Present: normal exam, mucous membranes moist Neck exam: Present: normal inspection. Absent: tenderness, meningismus, lymphadenopathy Respiratory exam: Present: normal lung sounds bilaterally. Absent: respiratory distress, wheezes, rales, rhonchi, stridor Cardiovascular Exam: Present: regular rate, normal rhythm, normal heart sounds. Absent: systolic murmur, diastolic murmur, rubs, gallop, clicks Extremities exam: Present: normal inspection, full ROM, normal capillary refill. Absent: tenderness, pedal edema, joint swelling, calf tenderness Back exam: Present: normal inspection Neurological exam: Present: alert, oriented X3, CN II-XII intact Psychiatric exam: Present: normal affect, normal mood Skin exam: Present: warm, dry, intact, normal color, other (Patient has significant abscess over the left hand and left forearm.). Absent: rash Course Vital Signs 06/10/18 20:25 Temperature 97.9 F Pulse Rate 94 Respiratory 18 Rate Blood Pressure 115/68 O2 Sat by Pulse 100 Oximetry Medical Decision Making - Medical Decision Making -year-old male presents returns today with fevers, chills. Concerns for left arm abscess and blood infection. He left AMA earlier today. They're concerned that time for endocarditis. Patient started IV fluids labwork obtained. Started on Rocephin and vancomycin pharmacy to dose. He is due for another dose at 1 AM. Patient at this time does agree to be readmitted for evaluation. He requests something for withdrawals. Was given 1 dose of methadone and nicotine patch. He was quite irate and upset about his care earlier today. He seems to more cooperative at this time. Patient agrees to admission. Dr. Fraire Discussed the case with Dr. Robertson. - Lab Data Result diagrams: 06/10/18 21:51 06/10/18 21:51 Lab Results 06/10/18 06/10/18 06/10/18 Range/Units 21:51 21:51 21:51 WBC 4.1 (3.8-10.6) k/uL RBC 4.28 L (4.30-5.90) m/uL Hgb 13.4 (13.0-17.5) gm/dL Hct 39.2 (39.0-53.0) % MCV 91.6 (80.0-100.0) fL MCH 31.3 (25.0-35.0) pg MCHC 34.2 (31.0-37.0) g/dL RDW 13.5 (11.5-15.5) % Plt Count 120 L (150-450) k/uL PT (9.0-12.0) sec INR (<1.2) APTT (22.0-30.0) sec Sodium 132 L (137-145) mmol/L Potassium 3.9 (3.5-5.1) mmol/L Chloride 100 (98-107) mmol/L Carbon Dioxide 24 (22-30) mmol/L Anion Gap 8 mmol/L BUN 10 (9-20) mg/dL Creatinine 0.50 L (0.66-1.25) mg/dL Est GFR (CKD-EPI)AfAm >90 (>60 ml/min/1.73 sqM) Est GFR (CKD-EPI)NonAf >90 (>60 ml/min/1.73 sqM) Glucose 110 H (74-99) mg/dL Plasma Lactic Acid Salvador 2.2 H* (0.7-2.0) mmol/L Calcium 8.0 L (8.4-10.2) mg/dL Total Bilirubin 0.7 (0.2-1.3) mg/dL AST 118 H (17-59) U/L ALT 121 H (21-72) U/L Alkaline Phosphatase 71 (38-126) U/L Total Protein 6.6 (6.3-8.2) g/dL Albumin 3.3 L (3.5-5.0) g/dL 06/10/18 Range/Units 21:51 WBC (3.8-10.6) k/uL RBC (4.30-5.90) m/uL Hgb (13.0-17.5) gm/dL Hct (39.0-53.0) % MCV (80.0-100.0) fL MCH (25.0-35.0) pg MCHC (31.0-37.0) g/dL RDW (11.5-15.5) % Plt Count (150-450) k/uL PT 11.0 (9.0-12.0) sec INR 1.0 (<1.2) APTT 28.7 (22.0-30.0) sec Sodium (137-145) mmol/L Potassium (3.5-5.1) mmol/L Chloride (98-107) mmol/L Carbon Dioxide (22-30) mmol/L Anion Gap mmol/L BUN (9-20) mg/dL Creatinine (0.66-1.25) mg/dL Est GFR (CKD-EPI)AfAm (>60 ml/min/1.73 sqM) Est GFR (CKD-EPI)NonAf (>60 ml/min/1.73 sqM) Glucose (74-99) mg/dL Plasma Lactic Acid Salvador (0.7-2.0) mmol/L Calcium (8.4-10.2) mg/dL Total Bilirubin (0.2-1.3) mg/dL AST (17-59) U/L ALT (21-72) U/L Alkaline Phosphatase (38-126) U/L Total Protein (6.3-8.2) g/dL Albumin (3.5-5.0) g/dL Disposition Clinical Impression: Cellulitis, IV drug user Disposition: ADMITTED IP TO THIS [facility] Condition: Stable Referrals: None,Stated [Primary Care Provider] - 1-2 days Time of Disposition: 22:36
[2018-06-10] MEDS: SODIUM CHLORIDE 0.9% 500 ML 500 ML IV SCH ×2 (21:56→21:57)
[2018-06-10] MEDS ORDERED: NICOTINE 21MG/24HR PATCH TRANSDERM STA (22:06)
[2018-06-10] MEDS ORDERED: METHADONE 10 MG TAB PO STA (22:08)
[2018-06-10 22:22] LABS: Albumin 3.3 g/dL (3.5-5.0); Anion Gap 8 mmol/L; Carbon Dioxide 24 mmol/L (22-30); Chloride 100 mmol/L (98-107); Glucose 110 mg/dL (74-99); Sodium 132 mmol/L (137-145); Total Bilirubin 0.7 mg/dL (0.2-1.3); Total Protein 6.6 g/dL (6.3-8.2)
[2018-06-10 22:23] LABS: ALT 121 U/L (21-72); AST 118 U/L (17-59); Alkaline Phosphatase 71 U/L (38-126); Blood Urea Nitrogen 10 mg/dL (9-20); HCT 39.2 % (39.0-53.0); HGB 13.4 gm/dL (13.0-17.5); MCH 31.3 pg (25.0-35.0); MCHC 34.2 g/dL (31.0-37.0); MCV 91.6 fL (80.0-100.0); Mean Platelet Volume 7.2; Platelet Count 120 k/uL (150-450); Potassium 3.9 mmol/L (3.5-5.1); RBC 4.28 m/uL (4.30-5.90); RDW 13.5 % (11.5-15.5); WBC 4.1 k/uL (3.8-10.6)
[2018-06-10 22:28] LABS: Partial Thromboplastin Time 28.7 sec (22.0-30.0)
[2018-06-10] MEDS ORDERED: NALOXONE 0.4 MG/ML 1 ML VIAL IV PRN ×2 (22:36→23:41)
[2018-06-10] MEDS ORDERED: ACETAMINOPHEN TAB 325 MG TAB PO PRN (22:36)
[2018-06-10] MEDS ORDERED: IBUPROFEN 400 MG TAB PO PRN (22:36)
[2018-06-10] MEDS ORDERED: ONDANSETRON 4 MG/2 ML VIAL IVP PRN (22:36)
[2018-06-10 22:53] LABS: Band Neutrophils % 1 %; Eosinophils # (M) 0.08 k/uL (0-0.7); Lymphocytes # (M) 1.19 k/uL (1.0-4.8); Monocytes # (M) 0.53 k/uL (0-1.0); Neutrophils % (M) 55 %; Nucleated Red Blood Cells 0 /100 WBC (0-0); Reactive Lymphocytes Present; Total Cells Counted 100
[2018-06-10] MEDS ORDERED: SODIUM CHLORIDE 0.9% 2,000 ML IV STA (23:54)
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
[2018-06-11] MEDS: PIPERACILLIN-TAZOBACTAM 3.375 GM in SODIUM CHLORIDE 0.9% 100 ML IVPB SCH ×4 (00:31→23:53)
[2018-06-11] MEDS: SODIUM CHLORIDE 0.9% 1,000 ML IV SCH (00:34)
[2018-06-11] MEDS ORDERED: VANCOMYCIN 1,500 MG in SODIUM CHLORIDE 0.9% 250 ML IVPB ONE (01:00)
[2018-06-11 02:37] LABS: HGB 12.4 gm/dL (13.0-17.5); MCH 30.5 pg (25.0-35.0); MCHC 31.9 g/dL (31.0-37.0); MCV 95.7 fL (80.0-100.0); Mean Platelet Volume 6.7; Platelet Count 122 k/uL (150-450); RBC 4.07 m/uL (4.30-5.90); RDW 13.5 % (11.5-15.5); WBC 3.5 k/uL (3.8-10.6)
[2018-06-11 02:38] LABS: ALT 113 U/L (21-72); AST 107 U/L (17-59); Albumin 2.7 g/dL (3.5-5.0); Alkaline Phosphatase 79 U/L (38-126); Anion Gap 6 mmol/L; Blood Urea Nitrogen 9 mg/dL (9-20); Calcium 7.6 mg/dL (8.4-10.2); Carbon Dioxide 22 mmol/L (22-30); Chloride 105 mmol/L (98-107); Glucose 120 mg/dL (74-99); Magnesium 1.7 mg/dL (1.6-2.3); Phosphorus 2.6 mg/dL (2.5-4.5); Potassium 3.5 mmol/L (3.5-5.1); Sodium 133 mmol/L (137-145); Total Bilirubin 0.5 mg/dL (0.2-1.3); Total Protein 5.8 g/dL (6.3-8.2)
[2018-06-11 03:21] LABS: Eosinophils # (M) 0.04 k/uL (0-0.7); Lymphocytes # (M) 0.81 k/uL (1.0-4.8); Monocytes # (M) 0.42 k/uL (0-1.0); Neutrophils # (M) 2.24 k/uL (1.3-7.7); Neutrophils % (M) 64 %; Nucleated Red Blood Cells 0 /100 WBC (0-0); Reactive Lymphocytes Present; Total Cells Counted 100
[2018-06-11] MEDS: PANTOPRAZOLE 40 MG/10 ML VIAL IV SCH (10:32)
--- NOTE | 2018-06-11 12:05 | ECHOF ---
Referral Reason:murmur, endocarditis MEASUREMENTS -------- HEIGHT: 170.2 cm WEIGHT: 77.1 kg BP: 97/61 RVIDd: 1.9 cm (< 3.3) IVSd: 0.5 cm (0.6 - 1.1) LVIDd: 4.1 cm (3.9 - 5.3) LVPWd: 0.9 cm (0.6 - 1.1) IVSs: 1.3 cm LVIDs: 2.7 cm LVPWs: 1.2 cm LAESV Index (A-L): 20.39 ml/m Ao Diam: 2.7 cm (2.0 - 3.7) AV Cusp: 2.1 cm (1.5 - 2.6) LA Diam: 3.3 cm (2.7 - 3.8) MV EXCURSION: 21.518 mm (> 18.000) MV EF SLOPE: 141 mm/s (70 - 150) EPSS: 0.8 cm MV E Adonis: 1.00 m/s MV DecT: 213 ms MV A Adonis: 0.57 m/s MV E/A Ratio: 1.75 RAP: 15.00 mmHg RVSP: 21.24 mmHg FINDINGS -------- Sinus rhythm. This was a technically good study. The left ventricular size is normal. Left ventricular wall thickness is normal. Overall left vent ricular systolic function is normal with, an EF between 55 - 60 %. The right ventricle is normal in size and function. The left atrium is normal in size. The right atrium is normal in size. The aortic valve is trileaflet and appears structurally normal. The mitral valve is normal. No mitral regurgitation. The tricuspid valve appears structurally normal. No regurgitation noted The right ventricular sys tolic pressure, as measured by Doppler, is 21.24mmHg. Pulmonic valve appears structurally normal. The aortic root size is normal. The inferior vena cava is mildly dilated. The pericardium is normal. CONCLUSIONS -------- 1. Sinus rhythm. 2. This was a technically good study. 3. The left ventricular size is normal. 4. Left ventricular wall thickness is normal. 5. Overall left ventricular systolic function is normal with, an EF between 55 - 60 %. 6. The right ventricle is normal in size and function. 7. The left atrium is normal in size. 8. The right atrium is normal in size. 9. The aortic valve is trileaflet and appears structurally normal. 10. The mitral valve is normal. 11. No mitral regurgitation. 12. The tricuspid valve appears structurally normal. 13. No regurgitation noted 14. The right ventricular systolic pressure, as measured by Doppler, is 21.24mmHg. 15. Pulmonic valve appears structurally normal. 16. The aortic root size is normal. 17. The inferior vena cava is mildly dilated. 18. The pericardium is normal. WHAR[employer] LABORER: Isabelle Yañez RDCS
[2018-06-11] MEDS: VANCOMYCIN 1,500 MG in SODIUM CHLORIDE 0.9% 250 ML IVPB SCH ×2 (12:16→23:53)
--- NOTE | 2018-06-11 13:19 | P.PN ---
Subjective Progress Note Date: 06/11/18 Principal diagnosis: left hand abscess Patient is a 43-year-old male past medical history of hepatitis C, intravenous drug use, GERD, and carpal tunnel syndrome who presented to the emergency department secondary to confusion and recurrent fever. He had been admitted earlier in the day on 06/10/18 and there was concern for failed outpatient treatment of his left hand cellulitis and possible bacteremia as he continued using intravenous drugs at that site. He been given a dose of vancomycin and blood cultures have been drawn. Patient was then admitted to the floor and became upset that he did not have his cell phone. He then demanded to leave AGAINST MEDICAL ADVICE. He returned to the ER for reevaluation symptoms worsen. On arrival to the ER his initial vital signs were within normal limits but he spiked a fever several hours later. He was found to have hyponatremia, thrombocytopenia and slightly elevated lactic acid of 2.2. He was given IV fluids, Zosyn, and vancomycin. He was admitted to the general medical floor. He had no additional fevers overnight. Patient seen and examined at bedside. He complains of feeling very tired and sleepy. He denies any nausea, vomiting, or diarrhea. He is having some diaphoresis. He continues to have some left hand pain. No chest pain or shortness of breath. Objective - Vital Signs Vital signs: Vital Signs Temp 97.5 F L 06/11/18 07:00 Pulse 80 06/11/18 07:00 Resp 14 06/11/18 07:00 BP 97/61 06/11/18 07:00 Pulse Ox 99 06/11/18 08:31 Intake & Output 06/10/18 06/11/18 06/11/18 18:59 06:59 18:59 Intake Total 2950 Balance 2950 Weight 77.111 kg Intake: Intake, IV Titration 2350 Amount Piperacillin-Tazobactam 3 100 .375 gm In Sodium Chloride 0.9% 100 ml @ 25 mls/hr IVPB Q8HR [place] Rx# :[id number] Sodium Chloride 0.9% 2, 2000 000 ml @ 999 mls/hr IV . Q2H1M [facility] Rx#:[id number] Vancomycin 1,500 mg In 250 Sodium Chloride 0.9% 250 ml @ 125 mls/hr IVPB Q12H [place] Rx#:[id number] Oral 600 Other: # Voids 3 - Exam General: Ill-appearing, diaphoretic, no distress, appears at stated age Derm: Erythema with warmth left hand. Unable to express any purulent drainage. Patient is unable to fully form a fist. It is unsure whether this is lack of motivation versus inability to form a fist. Patient does follow simple quickly during my exam. warm, dry. Multiple areas of bruising and tattoos. Head: Swelling right upper lip, dried blood on nares, normocephalic Eyes: EOMI, no lid lag, anicteric sclera Mouth: no lip lesion, mucus membranes moist Cardiovascular: S1S2 reg, no murmur, positive posterior tibial pulse bilateral, Lungs: Decreased breath sounds bilateral bases, no rhonchi, no rales , no accessory muscle use Abdominal: soft, nontender to palpation, no guarding, no appreciable organomegaly Ext: no gross muscle atrophy, no edema, no contractures Neuro: CN II-XI grossly intact, no focal neuro deficits Psych: Alert, oriented, appropriate affect - Labs CBC & Chem 7: 06/11/18 01:58 06/11/18 01:58 Labs: Abnormal Lab Results - Last 24 Hours (Table) 06/10/18 06/10/18 06/10/18 Range/Units 21:51 21:51 21:51 WBC (3.8-10.6) k/uL RBC 4.28 L (4.30-5.90) m/uL Hgb (13.0-17.5) gm/dL Plt Count 120 L (150-450) k/uL Lymphocytes # (Manual) (1.0-4.8) k/uL Sodium 132 L (137-145) mmol/L Creatinine 0.50 L (0.66-1.25) mg/dL Glucose 110 H (74-99) mg/dL Plasma Lactic Acid Salvador 2.2 H* (0.7-2.0) mmol/L Calcium 8.0 L (8.4-10.2) mg/dL AST 118 H (17-59) U/L ALT 121 H (21-72) U/L Total Protein (6.3-8.2) g/dL Albumin 3.3 L (3.5-5.0) g/dL 06/11/18 06/11/18 Range/Units 01:58 01:58 WBC 3.5 L (3.8-10.6) k/uL RBC 4.07 L (4.30-5.90) m/uL Hgb 12.4 L (13.0-17.5) gm/dL Plt Count 122 L (150-450) k/uL Lymphocytes # (Manual) 0.81 L (1.0-4.8) k/uL Sodium 133 L (137-145) mmol/L Creatinine 0.53 L (0.66-1.25) mg/dL Glucose 120 H (74-99) mg/dL Plasma Lactic Acid Salvador (0.7-2.0) mmol/L Calcium 7.6 L (8.4-10.2) mg/dL AST 107 H (17-59) U/L ALT 113 H (21-72) U/L Total Protein 5.8 L (6.3-8.2) g/dL Albumin 2.7 L (3.5-5.0) g/dL Assessment and Plan Assessment: Left hand Cellulitis, failed outpatient treatment -Continue with vancomycin as patient has a history of MRSA. Continue with Zosyn. -Consult orthopedics for possible further drainage with range of motion limitations. -Await blood cultures. -Echocardiogram without signs of valvular dysfunction. History of intervenous drug use -Cessation recommended -Received 1 dose of methadone in the ER GERD -PPI Tobacco abuse - cesation - nicotine replacement Elevated liver enzymes with know hep C - outpatient f/u with GI - repeat in AM to ensure stability eleavted lactic acid - improved - stop IVF No signs of severe sepsis only mildly elevated lactic acid DVT prophylaxis: Lovenox Discussed with: Patient, nursing Anticipated discharge: 2-[address]: home A total of 35 minutes was spent on the care of this complex patient more than 50 % of the time was spent in counseling and care coordination.
[2018-06-11] MEDS: HYDROcodone/APAP 10-325MG 1 EACH TAB PO PRN ×2 (15:42→21:12)
[2018-06-11] MEDS ORDERED: METHADONE 5 MG TAB PO STA ×2 (15:55→19:50)
--- NOTE | 2018-06-11 16:14 | CT ---
EXAMINATION TYPE: CT hand LT w con DATE OF EXAM: 06/11/2018 COMPARISON: None HISTORY: Posterior hand redness and swelling with concern for abscess. Left hand pain. CT DLP: 219.5 mGycm Automated exposure control for dose reduction was used. CONTRAST: Performed with IV Contrast, patient injected with 100 mL of Isovue 300. FINDINGS: There is no acute fracture or dislocation of the right hand. Carpal carpal interspaces are maintained . Osseous mineralization is unremarkable. There is dorsal soft tissue swelling over the carpal bones and metacarpals. A very subtly seen 6 x 5 x 4 mm focal fluid collection is vaguely identified on coronal image 77, sagittal image 40, and axial image 41 with a thin rim of peripheral enhancement. This is seen approximately 5 mm deep to the skin surface. Given overlying soft tissue swelling this is suspicious for a subcentimeter abscess. This i s situated between the third and fourth dorsal interspaces of the metacarpals near the mid to distal diaphysis. Evaluation of the ligaments and tendons are limited on CT. Small amount of radial soft tissue swellin g is seen of the distal forearm. No cortical erosion or periosteal reaction is seen to suggest osteom yelitis on CT. IMPRESSION: 1. SUBTLE PROBABLE 6 X 5 X 4 MM ABSCESS WITH SURROUNDING SWELLING OF THE DORSAL LEFT HAND BETWEEN THE THIRD AND FOURTH METACARPALS AT THE MID TO DISTAL DIAPHYSIS. 2. MILD SOFT TISSUE SWELLING OF THE VOLAR DISTAL FOREARM. 3. NO EVIDENCE OF ACUTE FRACTURE, DISLOCATION NOR CT EVIDENCE OF OSTIAL MYELITIS.
[2018-06-11 20:30] LABS: Amphetamine Screen,Urine Not Detected (NotDetected); Benzodiazepines Screen,Urine Not Detected (NotDetected); Cocaine Screen,Urine Detected (NotDetected); Methadone Screen, Urine Detected (NotDetected); Opiate Screen,Urine Detected (NotDetected); Phencyclidine Screen,Urine Not Detected (NotDetected); Tricyclic Antidepressant,Urine Not Detected (NotDetected); Urn Cannabinoid Scrn Detected (NotDetected)
[2018-06-11 20:31] LABS: Barbiturate Screen,Urine Not Detected (NotDetected); Oxycodone Screen, Urine Not Detected (NotDetected)
[2018-06-11] MEDS ORDERED: LIDOCAINE 1% 20 ML VIAL (10MG/ML) FOR IV START INTRADERMA PRN (21:39)
[2018-06-11] MEDS ORDERED: MIDAZOLAM (PF) 2 MG/2 ML VIAL IV PRN (21:39)
[2018-06-11] MEDS ORDERED: ONDANSETRON 4 MG/2 ML VIAL IVP ONE (21:39)
[2018-06-11] MEDS ORDERED: fentaNYL (PF) 50 MCG/ML 2 ML AMP IV PRN (21:39)
[2018-06-11] MEDS: NICOTINE 21MG/24HR PATCH TRANSDERM SCH (23:53)
[2018-06-12] MEDS: HYDROcodone/APAP 10-325MG 1 EACH TAB PO PRN ×4 (03:06→21:07)
[2018-06-12] MEDS ORDERED: DEXAMETHASONE SOD PHOSPHATE 10 MG/ML 1 ML VIAL IV ONE (06:00)
[2018-06-12] MEDS: SODIUM CHLORIDE 0.9% 1,000 ML IV SCH ×2 (06:05→23:26)
[2018-06-12] MEDS: PANTOPRAZOLE 40 MG/10 ML VIAL IV SCH (09:09)
[2018-06-12] MEDS ORDERED: LIDOCAINE 2% INJ 20 MG/ML (20 ML MDV) SQ ONE (09:12)
[2018-06-12 09:30] LABS: Anion Gap 5 mmol/L; Blood Urea Nitrogen 6 mg/dL (9-20); Calcium 7.7 mg/dL (8.4-10.2); Carbon Dioxide 23 mmol/L (22-30); Chloride 109 mmol/L (98-107); Glucose 92 mg/dL (74-99); Potassium 4.2 mmol/L (3.5-5.1); Sodium 137 mmol/L (137-145)
--- NOTE | 2018-06-12 09:54 | P.CNOR ---
History of Present Illness - [facility] Consult date: 06/12/18 History of present illness: This is a 43-year-old male admitted with infection to his left hand secondary to IV drug use. The patient has history of IV drug use and hepatitis C. He presented initially to the emergency department on 06/10/1909 left AMA. He returned and was admitted for IV antibiotics. We're consulted for orthopedic evaluation of his left hand. Computed tomography scan of the left hand was performed with contrast yesterday which showed a very small 5 mm abscess just under the skin on the dorsal aspect of the hand. Blood cultures at this point are negative. Past Medical History Past Medical History: Asthma, GERD/Reflux, Liver Disease, Pneumonia Additional Past Medical History / Comment(s): Hepatitis C, IVDA, past ODs, carpal tunnel syndrome bilaterally, past RFA abscess with surgery. History of Any Multi-Drug Resistant Organisms: MRSA, None Reported Year Discovered:: 2011(per pt) MDRO Source:: LEFT ANKLE Past Surgical History: No Surgical Hx Reported Additional Past Surgical History / Comment(s): right forearm abcess, bilateral inguinal hernia repairs as an . Past Anesthesia/Blood Transfusion Reactions: No Reported Reaction Past Psychological History: Anxiety, Depression Smoking Status: Current every day smoker Past Alcohol Use History: Occasional Past Drug Use History: Heroin, Marijuana, Methamphetamine - Past Family History Mother Family Medical History: Cancer Additional Family Medical History / Comment(s): Mother had leukemia. She is . Father Family Medical History: Diabetes Mellitus Additional Family Medical History / Comment(s): Father is . Medications and Allergies Home Medications Medication Instructions Recorded Confirmed Type Sulfamethox-Tmp 800-160Mg [Bactrim 1 tab PO Q12HR #20 tab 06/07/18 06/10/18 Rx DS 800-160 mg] Allergies Allergy/AdvReac Type Severity Reaction Status Date / Time ketorolac [From Toradol] Allergy Rash/Hives Verified 06/10/18 21:29 aspirin AdvReac Unknown Verified 06/10/18 21:29 theophylline AdvReac Unknown Verified 06/10/18 21:29 Childhood Physical Examination This is a 43-year-old male in no acute distress. He is alert and oriented 3. Exam of the left upper extremity reveals multiple small scabs an old punctures. There is mild dorsal swelling to the hand. Mild erythema. There is a scab about the mid dorsal hand. There is no active drainage from this area. He has full finger motion without difficulty or pain. Full wrist motion without difficulty. He has significant tenderness with palpation about the scabbed area. Neurovascular status to the upper extremity is intact. Results Computed tomography scan of the hand reveals no obvious fractures. There is a very small superficial abscess measuring approximately 4-5 mm about the dorsum of the hand between the third and fourth metacarpals. - Labs Labs: Abnormal Lab Results - Last 24 Hours (Table) 06/11/18 06/12/18 Range/Units 20:00 07:26 Chloride 109 H (98-107) mmol/L BUN 6 L (9-20) mg/dL Creatinine 0.57 L (0.66-1.25) mg/dL Calcium 7.7 L (8.4-10.2) mg/dL Urine Opiates Screen Detected H (NotDetected) Urine Methadone Screen Detected H (NotDetected) U Methamphetamines Scrn Detected H (NotDetected) Urine Cocaine Screen Detected H (NotDetected) U Marijuana (THC) Screen Detected H (NotDetected) Microbiology - Last 24 Hours (Table) 06/10/18 21:51 Blood Culture - Preliminary Blood No Growth after 24 hours H & H 06/10/18 06/11/18 Range/Units 21:51 01:58 Hgb 13.4 12.4 L (13.0-17.5) gm/dL Hct 39.2 39.0 (39.0-53.0) % Coagulation 06/10/18 Range/Units 21:51 INR 1.0 (<1.2) Result Diagrams: 06/11/18 01:58 06/12/18 07:26 Assessment and Plan (1) Cellulitis Current Visit: Yes Status: Acute Code(s): L03.90 - CELLULITIS, UNSPECIFIED SNOMED Code(s): 924666501 (2) IV drug user Current Visit: Yes Status: Acute Code(s): F19.90 - OTHER PSYCHOACTIVE SUBSTANCE USE, UNSPECIFIED, UNCOMPLICATED SNOMED Code(s): 596650973 (3) Abscess Current Visit: No Status: Acute Code(s): L02.91 - CUTANEOUS ABSCESS, UNSPECIFIED SNOMED Code(s): 639861739 Plan: The clinical and computed tomography scan findings are discussed the patient. It is recommended he have bedside drainage of the abscess. Procedure: The dorsum of the hand is injected with 2 mL of local anesthetic. The hand is prepped and a hemostat was used to open the area of the scab. There was no purulent drainage noted. A small amount of quarter inch iodoform is packed in the wound and a sterile dressing is applied. I have ordered moist heat to the left upper extremity. Continue IV antibiotics per infectious disease.
[2018-06-12] MEDS: PIPERACILLIN-TAZOBACTAM 3.375 GM in SODIUM CHLORIDE 0.9% 100 ML IVPB SCH ×2 (09:57→17:07)
[2018-06-12] MEDS ORDERED: METHADONE 5 MG TAB PO STA ×2 (10:57→19:23)
[2018-06-12] MEDS: VANCOMYCIN 1,500 MG in SODIUM CHLORIDE 0.9% 250 ML IVPB SCH (13:36)
[2018-06-12] MEDS: NICOTINE 21MG/24HR PATCH TRANSDERM SCH (13:37)
[2018-06-12] MEDS: LACTATED RINGERS 1,000 ML IV SCH ×2 (13:38→23:25)
--- NOTE | 2018-06-12 19:28 | P.PN ---
Subjective Progress Note Date: 06/12/18 Principal diagnosis: left hand abscess Patient is a 43-year-old male past medical history of hepatitis C, intravenous drug use, GERD, and carpal tunnel syndrome who presented to the emergency department secondary to confusion and recurrent fever. He had been admitted earlier in the day on 06/10/18 and there was concern for failed outpatient treatment of his left hand cellulitis and possible bacteremia as he continued using intravenous drugs at that site. He been given a dose of vancomycin and blood cultures have been drawn. Patient was then admitted to the floor and became upset that he did not have his cell phone. He then demanded to leave AGAINST MEDICAL ADVICE. He returned to the ER for reevaluation symptoms worsen. On arrival to the ER his initial vital signs were within normal limits but he spiked a fever several hours later. He was found to have hyponatremia, thrombocytopenia and slightly elevated lactic acid of 2.2. He was given IV fluids, Zosyn, and vancomycin. He was admitted to the general medical floor. He had no additional fevers overnight. Had I and D at bedside 06/12 with no purulent material and heatoma evacuation Patient seen and examined at bedside. Starting to feel some withdrawal with tremors, nausea, and hold for lethargy. Requesting methadone. We discussed at length that I cannot prescribe him methadone on discharge and will seek a methadone clinic. No chest pain. His chronic shortness of breath. No fevers overnight. Discussed with him that he will likely be discharged tomorrow with a course of Bactrim therapy. If blood cultures remain negative for 48 hours. Objective - Vital Signs Vital signs: Vital Signs Temp 100.3 F H 06/12/18 07:00 Pulse 97 06/12/18 07:00 Resp 16 06/12/18 07:00 BP 146/82 06/12/18 07:00 Pulse Ox 95 06/12/18 07:00 Intake & Output 06/11/18 06/12/18 06/12/18 18:59 06:59 18:59 Intake Total 1350 Balance 1350 Intake: Intake, IV Titration 950 Amount Piperacillin-Tazobactam 3 100 .375 gm In Sodium Chloride 0.9% 100 ml @ 25 mls/hr IVPB Q8HR [facility] Rx# :[id number] Sodium Chloride 0.9% 1, 600 000 ml @ 100 mls/hr IV . Q10H [facility] Rx#:[id number] Vancomycin 1,500 mg In 250 Sodium Chloride 0.9% 250 ml @ 125 mls/hr IVPB Q12H [facility] Rx#:[id number] Oral 400 - Exam General: Ill-appearing, diaphoretic, no distress, appears at stated age Derm: left hand with dressing in placed. Multiple areas of bruising and tattoos. Head: Swelling resolved right upper lip, normocephalic Eyes: EOMI, no lid lag, anicteric sclera Mouth: no lip lesion, mucus membranes moist Cardiovascular: S1S2 reg, no murmur, positive posterior tibial pulse bilateral, Lungs: Decreased breath sounds bilateral bases, no rhonchi, no rales , no accessory muscle use Abdominal: soft, nontender to palpation, no guarding, no appreciable organomegaly Ext: no gross muscle atrophy, no edema, no contractures Neuro: CN II-XI grossly intact, no focal neuro deficits Psych: Alert, oriented, appropriate affect - Labs CBC & Chem 7: 06/11/18 01:58 06/12/18 07:26 Labs: Abnormal Lab Results - Last 24 Hours (Table) 06/11/18 06/12/18 Range/Units 20:00 07:26 Chloride 109 H (98-107) mmol/L BUN 6 L (9-20) mg/dL Creatinine 0.57 L (0.66-1.25) mg/dL Calcium 7.7 L (8.4-10.2) mg/dL Urine Opiates Screen Detected H (NotDetected) Urine Methadone Screen Detected H (NotDetected) U Methamphetamines Scrn Detected H (NotDetected) Urine Cocaine Screen Detected H (NotDetected) U Marijuana (THC) Screen Detected H (NotDetected) Microbiology - Last 24 Hours (Table) 06/10/18 21:51 Blood Culture - Preliminary Blood No Growth after 24 hours Assessment and Plan Assessment: Left hand Cellulitis with hematoma, failed outpatient treatment -Continue with vancomycin as patient has a history of MRSA. Discontinue with Zosyn. -Ortho recs appreciated. -blood cultures ne for 24 hours -Echocardiogram without signs of valvular dysfunction. History of intervenous drug use -Cessation recommended -methadone prn, pt [facility] methadone clinic on discharge GERD -PPI Tobacco abuse - cesation - nicotine replacement Elevated liver enzymes with know hep C - outpatient f/u with GI - stable elevated lactic acid, resolved No signs of severe sepsis only mildly elevated lactic acid DVT prophylaxis: Lovenox Discussed with: Patient, nursing Anticipated discharge: 1-[address]: home A total of 35 minutes was spent on the care of this complex patient more than 50 % of the time was spent in counseling and care coordination.
[2018-06-13] MEDS: VANCOMYCIN 1,500 MG in SODIUM CHLORIDE 0.9% 250 ML IVPB SCH (00:26)
[2018-06-13 00:27] VITALS: RESP 16
[2018-06-13] MEDS: HYDROcodone/APAP 10-325MG 1 EACH TAB PO PRN (04:00)
[2018-06-13] MEDS: NICOTINE 21MG/24HR PATCH TRANSDERM SCH (04:22)
[2018-06-13] MEDS ORDERED: PANTOPRAZOLE 40 MG TABLET PO SCH (07:30)
[2018-06-13 07:42] VITALS: BP 110/68; PULSE 82; TEMP 97.7
[2018-06-13] MEDS ORDERED: METHADONE 5 MG TAB PO STA (10:01)
[2018-06-13] MEDS ORDERED: VANCOMYCIN TROUGH DUE 1 EACH MISC MISCELLANE ONE (12:00)
--- NOTE | 2018-06-13 19:47 | P.DS ---
Providers Date of admission: 06/10/18 23:41 Expected date of discharge: 06/13/18 Attending physician: Lissy Pfeiffer MD Consults: 06/11/18 10:58 Consult Physician Routine Consulting Provider: Jn Kim Consult Reason/Comments: Left hand abscess Do you want consulting provider notified?: Yes Primary care physician: Stated None Hospital Course: This is a summary of care not a discharge summary as patient left AGAINST MEDICAL ADVICE. Discharge Diagnosis: Left hand cellulitis with hematoma, failed outpatient treatment History of IVDA GERD Tobacco abuse Elevated liver enzymes with known hepatitis C Elevated lactic acid Hospital Course: Patient is a 43-year-old male past medical history of hepatitis C, intravenous drug use, GERD, and carpal tunnel syndrome who presented to the emergency department secondary to confusion and recurrent fever. He had been admitted earlier in the day on 06/10/18 and there was concern for failed outpatient treatment of his left hand cellulitis and possible bacteremia as he continued using intravenous drugs at that site. He been given a dose of vancomycin and blood cultures have been drawn. Patient was then admitted to the floor and became upset that he did not have his cell phone. He then demanded to leave AGAINST MEDICAL ADVICE. He returned to the ER for reevaluation symptoms worsen. On arrival to the ER his initial vital signs were within normal limits but he spiked a fever several hours later. He was found to have hyponatremia, thrombocytopenia and slightly elevated lactic acid of 2.2. He was given IV fluids, Zosyn, and vancomycin. He was admitted to the general medical floor. He had no additional fevers overnight. Had I and D at bedside 06/12 with no purulent material and heatoma evacuation. Blood cultures were negative for 48 hours. Patient decided to leave AGAINST MEDICAL ADVICE in the morning of 06/13. He did not wait to be seen. A total of 25 minutes of time were spent preparing this complex discharge summary . Patient Condition at Discharge: Stable Plan - Discharge Summary Discharge Rx Participant: Yes New Discharge Prescriptions: No Action Sulfamethox-Tmp 800-160Mg [Bactrim DS 800-160 mg] 1 tab PO Q12HR #20 tab Discharge Medication List Sulfamethox-Tmp 800-160Mg [Bactrim DS 800-160 mg] 1 tab PO Q12HR #20 tab [Rx] Follow up Appointment(s)/Referral(s): None,Stated [Primary Care Provider] - 1-2 days Discharge Disposition: Left Against Medical Advice
== END 2018-06-13 10:15 | disposition left against medical advice (07) | DRG 603 ==
LOC: EC 20:23 → 4SSUR 22:36 → OBSVTOIN 23:41
PROVIDERS: ADMIT Internal Medicine; ATTEND Internal Medicine
PROC: 0H9GXZZ Drainage of Left Hand Skin, External Approach (ICD-10-PCS; principal; 2018-06-12)
DX: L02.512 Cutaneous abscess of left hand (principal); L03.114 Cellulitis of left upper limb; E87.1 Hypo-osmolality and hyponatremia; F11.23 Opioid dependence with withdrawal; G56.03 Carpal tunnel syndrome, bilateral upper limbs; D69.6 Thrombocytopenia, unspecified; B19.20 Unspecified viral hepatitis C without hepatic coma; J45.909 Unspecified asthma, uncomplicated; K21.9 Gastro-esophageal reflux disease without esophagitis; F17.200 Nicotine dependence, unspecified, uncomplicated; Z71.51 Drug abuse counseling and surveillance of drug abuser; Z91.5 Personal history of self-harm; Z87.01 Personal history of pneumonia (recurrent); Z86.14 Personal history of Methicillin resistant Staphylococcus aureus infection; Z86.59 Personal history of other mental and behavioral disorders; Z88.6 Allergy status to analgesic agent; Z88.5 Allergy status to narcotic agent; Z88.8 Allergy status to other drugs, medicaments and biological substances; Z80.6 Family history of leukemia; Z83.3 Family history of diabetes mellitus
CPT/HCPCS: 36415; 80048; 80053; 80306; 83605; 83735; 84100; 85025; 85610; 85730; 87040; 93005; 93306; 96365; 99284

== ENCOUNTER 2018-06-23 02:58 | Emergency (ER) | payer OTHER ==
[2018-06-23 03:16] VITALS: RESP 18
[2018-06-23] MEDS ORDERED: IPRATROPIUM-ALBUTEROL 3 ML NEB INHALATION STA (03:24)
[2018-06-23] MEDS ORDERED: guaiFENesin-DM 600/30MG 1 EACH TAB.ER.12H PO STA (03:24)
[2018-06-23] MEDS ORDERED: IBUPROFEN 600 MG TAB PO STA (03:24)
--- NOTE | 2018-06-23 03:29 | ED ---
URI HPI - General Chief Complaint: Upper Respiratory Infection Stated Complaint: Shortness of Breath Time Seen by Provider: 06/23/18 03:17 Source: patient Mode of arrival: ambulatory Limitations: no limitations - History of Present Illness Initial Comments: 43-year-old male patient presents to the emergency department today for evaluation of cough, nasal congestion, and sore throat. Patient states symptoms started earlier in the day today. Patient states he feels like his chest is tight and at times he feels mildly short of breath. Reports a productive cough with yellow sputum. Denies any hemoptysis. Patient states he does smoke cigarettes. Denies any fevers or chills with this. Denies any sick contacts or recent travel. Patient denies any recent rash, chest pain, abdominal pain, nausea, vomiting, diarrhea, constipation, back pain, numbness, tingling, dizziness, weakness, hematuria, dysuria, urinary urgency, urinary frequency, headache, visual changes, or any other complaints. - Related Data Previous Rx's Medication Instructions Recorded Sulfamethox-Tmp 800-160Mg [Bactrim 1 tab PO Q12HR #20 tab 06/07/18 DS 800-160 mg] Albuterol Sulfate [Proair Hfa] 1 - 2 puff INHALATION Q6HR PRN #1 06/23/18 inhaler guaiFENesin-DM 600/30MG [Mucinex 1 each PO Q12HR #10 tab.er.12h 06/23/18 Dm] Allergies Allergy/AdvReac Type Severity Reaction Status Date / Time ketorolac [From Toradol] Allergy Rash/Hives Verified 06/23/18 03:15 aspirin AdvReac Unknown Verified 06/23/18 03:15 theophylline AdvReac Unknown Verified 06/23/18 03:15 Childhood Review of Systems ROS Statement: Those systems with pertinent positive or pertinent negative responses have been documented in the HPI. ROS Other: All systems not noted in ROS Statement are negative. Past Medical History Past Medical History: Asthma, GERD/Reflux, Liver Disease, Pneumonia Additional Past Medical History / Comment(s): Hepatitis C, IVDA, past ODs, carpal tunnel syndrome bilaterally, past RFA abscess with surgery. History of Any Multi-Drug Resistant Organisms: MRSA, None Reported Date of last positivie culture/infection: 2011(per pt) MDRO Source:: LEFT ANKLE Past Surgical History: No Surgical Hx Reported Additional Past Surgical History / Comment(s): right forearm abcess, bilateral inguinal hernia repairs as an . Past Anesthesia/Blood Transfusion Reactions: No Reported Reaction Past Psychological History: Anxiety, Depression Smoking Status: Current every day smoker Past Alcohol Use History: Occasional Past Drug Use History: Heroin, IV Drug Use, Marijuana, Methamphetamine - Past Family History Mother Family Medical History: Cancer Additional Family Medical History / Comment(s): Mother had leukemia. She is . Father Family Medical History: Diabetes Mellitus Additional Family Medical History / Comment(s): Father is . General Exam Limitations: no limitations General appearance: alert, in no apparent distress, other (This is a well- developed, well-nourished adult male patient in no acute distress. Vital signs upon presentation are temperature 98.5F, pulse 95, respirations 18, blood pressure 132/79, pulse ox 98% on room air per) Eye exam: Present: normal appearance, PERRL, EOMI. Absent: scleral icterus, conjunctival injection, periorbital swelling ENT exam: Present: normal exam, normal oropharynx, mucous membranes moist, TM's normal bilaterally Neck exam: Present: normal inspection. Absent: tenderness, meningismus, lymphadenopathy Respiratory exam: Present: normal lung sounds bilaterally. Absent: respiratory distress, wheezes, rales, rhonchi, stridor Cardiovascular Exam: Present: regular rate, normal rhythm, normal heart sounds. Absent: systolic murmur, diastolic murmur, rubs, gallop, clicks GI/Abdominal exam: Present: soft, normal bowel sounds. Absent: distended, tenderness, guarding, rebound, rigid Neurological exam: Present: alert, oriented X3, CN II-XII intact Psychiatric exam: Present: normal affect, normal mood Skin exam: Present: warm, dry, intact, normal color. Absent: rash Course Vital Signs 06/23/18 06/23/18 06/23/18 03:14 03:43 03:52 Temperature 98.5 F Pulse Rate 95 96 99 Respiratory 18 Rate Blood Pressure 132/79 O2 Sat by Pulse 98 Oximetry Medical Decision Making - Medical Decision Making 43-year-old male patient presents to the emergency department today for complaints of nasal congestion, cough, and sore throat. Physical examination did reveal mild faint expiratory wheeze in the left upper lobe. Pharyngeal erythema. TMs normal. Chest x-ray showed no acute cardiopulmonary process. Influenza testing is negative. Patient's symptoms consistent with viral upper respiratory infection. He'll be discharged home with prescription for Mucinex and Pro Air. He was given smoking cessation counseling. He is instructed to follow-up with his primary care physician for recheck in 1-2 days. Return parameters were discussed in detail. He verbalizes understanding and agrees with this plan. - Lab Data Lab Results 06/23/18 Range/Units 03:31 Influenza Type A RNA Not Detected (Not Detectd) Influenza Type B (PCR) Not Detected (Not Detectd) - Radiology Data Radiology results: report reviewed, image reviewed Two-view x-ray of the chest is obtained. Report was reviewed in its entirety. Impression by Dr. Arthur shows normal chest. Left lower lobe pneumonia is essentially cleared compared to last exam. Disposition Clinical Impression: Viral upper respiratory infection Disposition: HOME SELF-CARE Condition: Good Instructions: Upper Respiratory Infection (ED) Additional Instructions: Take medication as directed. Take Tylenol Motrin for pain and fever control. Rest. Increase fluids. Follow-up with your primary care physician for recheck in 1-2 days. Return immediately for any new, worsening, or concerning symptoms. Prescriptions: Albuterol Sulfate [Proair Hfa] 1 - 2 puff INHALATION Q6HR PRN #1 inhaler PRN Reason: Shortness Of Breath guaiFENesin-DM 600/30MG [Mucinex Dm] 1 each PO Q12HR #10 tab.er.12h Is patient prescribed a controlled substance at d/c from ED?: No Referrals: None,Stated [Primary Care Provider] - 1-2 days Time of Disposition: 04:30
--- NOTE | 2018-06-23 03:57 | XR ---
EXAMINATION TYPE: XR chest 2V DATE OF EXAM: 06/23/2018 COMPARISON: June 10, 2018 HISTORY: Chest pain TECHNIQUE: Frontal and lateral views of the chest are obtained. FINDINGS: Heart and mediastinum are normal. Lungs are clear. Diaphragm is normal. Bony thorax appear s normal. IMPRESSION: Normal chest. Left lower lobe pneumonia is essentially cleared compared to last exam.
[2018-06-23 04:45] VITALS: BP 129/74; PULSE 88; TEMP 97.8
--- NOTE | 2018-06-26 00:06 | CDI ---
Documentation Clarification OP Dear Benita Mckinley Please provide smoking cessation total time spent on counselling . Thank you, Higinio Carrero Uniform Attendant If you have any questions, please contact Pick Pulling Machine Tender at [phone] [facility]
== END 2018-06-23 04:44 | disposition home or self-care (01) ==
LOC: EC 02:58
DX: J06.9 Acute upper respiratory infection, unspecified (principal); J45.909 Unspecified asthma, uncomplicated; F17.210 Nicotine dependence, cigarettes, uncomplicated; Z71.6 Tobacco abuse counseling; Z86.14 Personal history of Methicillin resistant Staphylococcus aureus infection; Z88.6 Allergy status to analgesic agent; Z88.8 Allergy status to other drugs, medicaments and biological substances
CPT/HCPCS: 71046; 87502; 94640; 99285; 99406

== ENCOUNTER 2018-07-13 21:47 | Emergency (ER) | payer OTHER ==
[2018-07-13] MEDS ORDERED: NALOXONE 0.4 MG/ML 10 ML VIAL IVP STA (21:59)
[2018-07-13] MEDS ORDERED: NALOXONE 0.4 MG/ML 1 ML VIAL IV STA (22:10)
--- NOTE | 2018-07-13 22:15 | ED ---
Overdose HPI - General Source: patient, RN notes reviewed Mode of arrival: ambulatory Limitations: no limitations - History of Present Illness Complaint: accidental overdose, other <Olayinka Carvajal - Last Filed: 07/14/18 00:30> <Raymundo Aguilar - Last Filed: 07/14/18 07:10> - General Chief Complaint: Overdose Stated Complaint: overdose Time Seen by Provider: 07/13/18 21:55 - History of Present Illness Initial Comments: This is a 43-year-old male with a known history of heroin abuse who apparently has been using methamphetamine and crack cocaine over the past week tonight he was using heroin when he apparently overdosed friends or present use nasal Narcan on him he did start waking up but started complaining of feeling shaky or some other problem and they gave him more heroin. He was brought in by friend in taken to the triage area. Patient was somewhat responsive but groggy upon arrival. I did order 0.4 mg Narcan to be given IV upon arrival. It was confirmed the patient did inject heroin tonight. Later was question whether was fentanyl involved. (Olayinka Carvajal) - Related Data Previous Rx's Medication Instructions Recorded Sulfamethox-Tmp 800-160Mg [Bactrim 1 tab PO Q12HR #20 tab 06/07/18 DS 800-160 mg] Albuterol Sulfate [Proair Hfa] 1 - 2 puff INHALATION Q6HR PRN #1 06/23/18 inhaler guaiFENesin-DM 600/30MG [Mucinex 1 each PO Q12HR #10 tab.er.12h 06/23/18 Dm] Allergies Allergy/AdvReac Type Severity Reaction Status Date / Time ketorolac [From Toradol] Allergy Rash/Hives Verified 07/13/18 21:53 aspirin AdvReac Unknown Verified 07/13/18 21:53 theophylline AdvReac Unknown Verified 07/13/18 21:53 Childhood Review of Systems ROS Other: All systems not noted in ROS Statement are negative. Limitations: ROS unobtainable due to patients medical condition <Olayinka Carvajal - Last Filed: 07/14/18 00:30> ROS Other: All systems not noted in ROS Statement are negative. <Raymundo Aguilar - Last Filed: 07/14/18 07:10> ROS Statement: Those systems with pertinent positive or pertinent negative responses have been documented in the HPI. Past Medical History Past Medical History: Asthma, GERD/Reflux, Liver Disease, Pneumonia Additional Past Medical History / Comment(s): Hepatitis C, IVDA, past ODs, carpal tunnel syndrome bilaterally, past RFA abscess with surgery. History of Any Multi-Drug Resistant Organisms: MRSA, None Reported Date of last positivie culture/infection: 2011(per pt) MDRO Source:: LEFT ANKLE Past Surgical History: No Surgical Hx Reported Additional Past Surgical History / Comment(s): right forearm abcess, bilateral inguinal hernia repairs as an . Past Anesthesia/Blood Transfusion Reactions: No Reported Reaction Past Psychological History: Anxiety, Depression Smoking Status: Current every day smoker Past Alcohol Use History: Occasional Past Drug Use History: Heroin, IV Drug Use, Marijuana, Methamphetamine - Past Family History Mother Family Medical History: Cancer Additional Family Medical History / Comment(s): Mother had leukemia. She is . Father Family Medical History: Diabetes Mellitus Additional Family Medical History / Comment(s): Father is . <Olayinka Carvajal Filed: 07/14/18 00:30> General Exam Limitations: no limitations General appearance: appears intoxicated, lethargic Head exam: Present: atraumatic, normocephalic, normal inspection Eye exam: Present: PERRL, EOMI, other (Injected conjunctiva) ENT exam: Present: mucous membranes dry Neck exam: Present: normal inspection, full ROM, other (Stridor JVD or bruits). Absent: tenderness, meningismus, lymphadenopathy Respiratory exam: Present: normal lung sounds bilaterally. Absent: respiratory distress, wheezes, rales, rhonchi, stridor Cardiovascular Exam: Present: regular rate, normal rhythm, normal heart sounds. Absent: systolic murmur, diastolic murmur, rubs, gallop, clicks GI/Abdominal exam: Present: soft, normal bowel sounds. Absent: distended, tenderness, guarding, rebound, rigid Rectal exam: Present: deferred Extremities exam: Present: full ROM, normal capillary refill, other (Scar noted in both antecubital spaces with erythema noted in the left antecubital space). Absent: tenderness Back exam: Present: normal inspection Neurological exam: Present: altered, CN II-XII intact. Absent: motor sensory deficit Psychiatric exam: Present: flat affect Skin exam: Present: warm, dry. Absent: normal color <Olayinka Carvajal Last Filed: 07/14/18 00:30> <Raymundo Aguilar - Last Filed: 07/14/18 07:10> - General Exam Comments Initial Comments: Is a well-developed asthenic appearing male who is lethargic but does awaken to stimulation (Olayinka Carvajal) Course <Olayinka Carvajal - Last Filed: 07/14/18 00:30> <Raymundo Aguilar - Last Filed: 07/14/18 07:10> Vital Signs 07/13/18 07/13/18 07/13/18 21:51 22:10 22:45 Temperature 98.7 F Pulse Rate 101 H 97 Respiratory 22 18 16 Rate Blood Pressure 129/86 135/87 O2 Sat by Pulse 98 99 Oximetry 07/13/18 07/14/18 07/14/18 23:55 00:31 02:16 Temperature Pulse Rate 82 84 Respiratory 16 16 Rate Blood Pressure 124/69 114/69 114/68 O2 Sat by Pulse 98 98 97 Oximetry 07/14/18 07/14/18 07/14/18 02:44 04:08 05:23 Temperature Pulse Rate 93 80 77 Respiratory 16 16 16 Rate Blood Pressure 105/75 112/80 123/89 O2 Sat by Pulse 97 96 93 L Oximetry 07/14/18 07/14/18 06:16 07:06 Temperature Pulse Rate 79 75 Respiratory 16 16 Rate Blood Pressure 118/77 112/85 O2 Sat by Pulse 92 L 95 Oximetry - Reevaluation(s) Reevaluation #1: 07/14/18 00:30 Patient was reevaluated on several occasions he is arousable but sleeping throughout his stay thus far. (Olayinka Carvajal) Reevaluation #2: 07/14/18 00:30 the patients care will be endorsed at shift change. (Olayinka Carvajal) Medical Decision Making - Lab Data Result diagrams: 07/13/18 22:08 07/13/18 22:08 - EKG Data -: EKG Interpreted by Me EKG shows normal: sinus rhythm (Normal sinus rhythm of 98 NJ interval 152 QRS 86 QT since QTC 338/431 st-t wave changes) <Olayinka Carvajal - Last Filed: 07/14/18 00:30> - Lab Data Result diagrams: 07/13/18 22:08 07/13/18 22:08 <Raymundo Aguilar - Last Filed: 07/14/18 07:10> - Medical Decision Making Patient is a 43-year-old man seen for drug overdose. He is observed in the emergency department without any issues of respiratory compromise. Reviewed with patient prior to discharge there is no suicidal ideation. Patient recommended to follow up with [facility] directly upon discharge. (Raymundo Aguilar) - Lab Data Lab Results 07/13/18 07/13/18 07/13/18 Range/Units 22:08 22:08 22:08 WBC 5.3 (3.8-10.6) k/uL RBC 4.55 (4.30-5.90) m/uL Hgb 13.7 (13.0-17.5) gm/dL Hct 42.1 (39.0-53.0) % MCV 92.5 (80.0-100.0) fL MCH 30.1 (25.0-35.0) pg MCHC 32.5 (31.0-37.0) g/dL RDW 14.7 (11.5-15.5) % Plt Count 148 L (150-450) k/uL Neutrophils % 57 % Lymphocytes % 28 % Monocytes % 8 % Eosinophils % 3 % Basophils % 1 % Neutrophils # 3.0 (1.3-7.7) k/uL Lymphocytes # 1.5 (1.0-4.8) k/uL Monocytes # 0.4 (0-1.0) k/uL Eosinophils # 0.2 (0-0.7) k/uL Basophils # 0.0 (0-0.2) k/uL Sodium 138 (137-145) mmol/L Potassium 4.2 (3.5-5.1) mmol/L Chloride 107 (98-107) mmol/L Carbon Dioxide 23 (22-30) mmol/L Anion Gap 8 mmol/L BUN 19 (9-20) mg/dL Creatinine 0.61 L (0.66-1.25) mg/dL Est GFR (CKD-EPI)AfAm >90 (>60 ml/min/1.73 sqM) Est GFR (CKD-EPI)NonAf >90 (>60 ml/min/1.73 sqM) Glucose 96 (74-99) mg/dL POC Glucose (mg/dL) (75-99) mg/dL POC Glu Dry Chain Operator ID Calcium 9.2 (8.4-10.2) mg/dL Magnesium 1.9 (1.6-2.3) mg/dL Total Bilirubin 1.2 (0.2-1.3) mg/dL AST 238 H (17-59) U/L ALT 227 H (21-72) U/L Alkaline Phosphatase 95 (38-126) U/L Total Creatine Kinase 237 H (55-170) U/L CK-MB (CK-2) 6.8 H (0.0-2.4) ng/mL CK-MB (CK-2) Rel Index 2.9 Total Protein 8.0 (6.3-8.2) g/dL Albumin 3.8 (3.5-5.0) g/dL Lipase 49 (23-300) U/L Salicylates <1.0 mg/dL Urine Opiates Screen (NotDetected) Ur Oxycodone Screen (NotDetected) Urine Methadone Screen (NotDetected) Ur Propoxyphene Screen (NotDetected) Acetaminophen <10.0 ug/mL Ur Barbiturates Screen (NotDetected) U Tricyclic Antidepress (NotDetected) Ur Phencyclidine Scrn (NotDetected) Ur Amphetamines Screen (NotDetected) U Methamphetamines Scrn (NotDetected) U Benzodiazepines Scrn (NotDetected) Urine Cocaine Screen (NotDetected) U Marijuana (THC) Screen (NotDetected) 07/13/18 07/14/18 Range/Units 22:14 00:14 WBC (3.8-10.6) k/uL RBC (4.30-5.90) m/uL Hgb (13.0-17.5) gm/dL Hct (39.0-53.0) % MCV (80.0-100.0) fL MCH (25.0-35.0) pg MCHC (31.0-37.0) g/dL RDW (11.5-15.5) % Plt Count (150-450) k/uL Neutrophils % % Lymphocytes % % Monocytes % % Eosinophils % % Basophils % % Neutrophils # (1.3-7.7) k/uL Lymphocytes # (1.0-4.8) k/uL Monocytes # (0-1.0) k/uL Eosinophils # (0-0.7) k/uL Basophils # (0-0.2) k/uL Sodium (137-145) mmol/L Potassium (3.5-5.1) mmol/L Chloride (98-107) mmol/L Carbon Dioxide (22-30) mmol/L Anion Gap mmol/L BUN (9-20) mg/dL Creatinine (0.66-1.25) mg/dL Est GFR (CKD-EPI)AfAm (>60 ml/min/1.73 sqM) Est GFR (CKD-EPI)NonAf (>60 ml/min/1.73 sqM) Glucose (74-99) mg/dL POC Glucose (mg/dL) 100 H (75-99) mg/dL POC Glu Dry Chain Operator ID Brianne Aquino Calcium (8.4-10.2) mg/dL Magnesium (1.6-2.3) mg/dL Total Bilirubin (0.2-1.3) mg/dL AST (17-59) U/L ALT (21-72) U/L Alkaline Phosphatase (38-126) U/L Total Creatine Kinase (55-170) U/L CK-MB (CK-2) (0.0-2.4) ng/mL CK-MB (CK-2) Rel Index Total Protein (6.3-8.2) g/dL Albumin (3.5-5.0) g/dL Lipase (23-300) U/L Salicylates mg/dL Urine Opiates Screen Detected H (NotDetected) Ur Oxycodone Screen Not Detected (NotDetected) Urine Methadone Screen Not Detected (NotDetected) Ur Propoxyphene Screen Not Detected (NotDetected) Acetaminophen ug/mL Ur Barbiturates Screen Not Detected (NotDetected) U Tricyclic Antidepress Not Detected (NotDetected) Ur Phencyclidine Scrn Not Detected (NotDetected) Ur Amphetamines Screen Detected H (NotDetected) U Methamphetamines Scrn Detected H (NotDetected) U Benzodiazepines Scrn Not Detected (NotDetected) Urine Cocaine Screen Detected H (NotDetected) U Marijuana (THC) Screen Detected H (NotDetected) Disposition <Olayinka Carvajal - Last Filed: 07/14/18 00:30> Is patient prescribed a controlled substance at d/c from ED?: No <Raymundo Aguilar - Last Filed: 07/14/18 07:10> Clinical Impression: Heroin overdose, Drug overdose Disposition: HOME SELF-CARE Condition: Fair Instructions (If sedation given, give patient instructions): Adult Overdose (ED ), Opioid Use Disorder (ED) Referrals: None,Stated [Primary Care Provider] - 1-2 days
[2018-07-13 22:16] LABS: Glucose,Whole Blood 100 mg/dL (75-99)
[2018-07-13 22:26] LABS: Basophils % (A) 1 %; Eosinophils # (A) 0.2 k/uL (0-0.7); Eosinophils % (A) 3 %; HCT 42.1 % (39.0-53.0); HGB 13.7 gm/dL (13.0-17.5); Lymphocytes # (A) 1.5 k/uL (1.0-4.8); Lymphocytes % (A) 28 %; MCH 30.1 pg (25.0-35.0); MCHC 32.5 g/dL (31.0-37.0); MCV 92.5 fL (80.0-100.0); Mean Platelet Volume 6.7; Monocytes # (A) 0.4 k/uL (0-1.0); Monocytes % (A) 8 %; Neutrophils % (A) 57 %; Platelet Count 148 k/uL (150-450); RBC 4.55 m/uL (4.30-5.90); RDW 14.7 % (11.5-15.5); WBC 5.3 k/uL (3.8-10.6)
[2018-07-13 22:35] LABS: ALT 227 U/L (21-72); AST 238 U/L (17-59); Acetaminophen <10.0 ug/mL; Albumin 3.8 g/dL (3.5-5.0); Alkaline Phosphatase 95 U/L (38-126); Anion Gap 8 mmol/L; Blood Urea Nitrogen 19 mg/dL (9-20); Calcium 9.2 mg/dL (8.4-10.2); Carbon Dioxide 23 mmol/L (22-30); Chloride 107 mmol/L (98-107); Glucose 96 mg/dL (74-99); Lipase 49 U/L (23-300); Magnesium 1.9 mg/dL (1.6-2.3); Potassium 4.2 mmol/L (3.5-5.1); Salicylate <1.0 mg/dL; Sodium 138 mmol/L (137-145); Total Bilirubin 1.2 mg/dL (0.2-1.3)
[2018-07-13 22:46] VITALS: RESP 16
[2018-07-13 22:57] LABS: Creatine Kinase MB 6.8 ng/mL (0.0-2.4)
[2018-07-13] MEDS ORDERED: SODIUM CHLORIDE 0.9% 1,000 ML IV STA (23:59)
[2018-07-14 00:34] LABS: Amphetamine Screen,Urine Detected (NotDetected); Barbiturate Screen,Urine Not Detected (NotDetected); Benzodiazepines Screen,Urine Not Detected (NotDetected); Cocaine Screen,Urine Detected (NotDetected); Methadone Screen, Urine Not Detected (NotDetected); Opiate Screen,Urine Detected (NotDetected); Oxycodone Screen, Urine Not Detected (NotDetected); Phencyclidine Screen,Urine Not Detected (NotDetected); Tricyclic Antidepressant,Urine Not Detected (NotDetected); Urn Cannabinoid Scrn Detected (NotDetected)
[2018-07-14 07:09] VITALS: BP 112/85; PULSE 75
[2018-07-14 07:12] VITALS: TEMP 98
== END 2018-07-14 07:11 | disposition home or self-care (01) ==
LOC: EC 21:47
DX: T40.1X1A Poisoning by heroin, accidental (unintentional), initial encounter (principal); L90.5 Scar conditions and fibrosis of skin; J45.909 Unspecified asthma, uncomplicated; F17.200 Nicotine dependence, unspecified, uncomplicated; Z88.6 Allergy status to analgesic agent; Z88.8 Allergy status to other drugs, medicaments and biological substances; Z86.14 Personal history of Methicillin resistant Staphylococcus aureus infection; Z98.890 Other specified postprocedural states; Z53.8 Procedure and treatment not carried out for other reasons
CPT/HCPCS: 99284; 96374; 96361; 36415; 93005; 80053; 82550; 82553; 83690; 83735; 85025; 80306; 83520 ×2; J2310

== ENCOUNTER 2018-08-08 04:06 | Emergency (ER) | payer OTHER ==
[2018-08-08 04:15] VITALS: BP 120/79; PULSE 99; RESP 18; TEMP 97.6
--- NOTE | 2018-08-08 04:24 | ED ---
URI HPI - General Chief Complaint: Upper Respiratory Infection Stated Complaint: Throat Pain/Cough Time Seen by Provider: 08/08/18 04:08 Source: patient, RN notes reviewed, old records reviewed Mode of arrival: ambulatory - History of Present Illness Initial Comments: This is a 43-year-old male the ER for evaluation. Patient resents today for evaluation regarding cough congestion sore throat runny nose. Patient also states during exam and he has small infection developing on left thumb. Patient denies any fevers. No shortness of breath. No chest pain. No recent travel history or sick contacts, patient does have an does use IV drugs MD Complaint: cough, sore throat, rhinorrhea -: days(s) Severity: mild Severity scale (1-10): 2 Consistency: constant Improves With: nothing Worsens With: nothing Context: other (IV drug abuse) Associated Symptoms: denies other symptoms Treatments Prior to Arrival: none - Related Data Previous Rx's Medication Instructions Recorded Sulfamethox-Tmp 800-160Mg [Bactrim 1 tab PO Q12HR #20 tab 06/07/18 DS 800-160 mg] Albuterol Sulfate [Proair Hfa] 1 - 2 puff INHALATION Q6HR PRN #1 06/23/18 inhaler guaiFENesin-DM 600/30MG [Mucinex 1 each PO Q12HR #10 tab.er.12h 06/23/18 Dm] Amoxic-Pot Clav 875-125Mg 1 tab PO Q12HR #20 tablet 08/08/18 [Augmentin 875-125] Sulfamethox-Tmp 800-160Mg [Bactrim 2 tab PO BID #40 tab 08/08/18 DS 800-160 mg] Allergies Allergy/AdvReac Type Severity Reaction Status Date / Time ketorolac [From Toradol] Allergy Rash/Hives Verified 07/13/18 21:53 aspirin AdvReac Unknown Verified 07/13/18 21:53 theophylline AdvReac Unknown Verified 07/13/18 21:53 Childhood Review of Systems ROS Statement: Those systems with pertinent positive or pertinent negative responses have been documented in the HPI. ROS Other: All systems not noted in ROS Statement are negative. Past Medical History Past Medical History: Asthma, GERD/Reflux, Liver Disease, Pneumonia Additional Past Medical History / Comment(s): Hepatitis C, IVDA, past ODs, carpal tunnel syndrome bilaterally, past RFA abscess with surgery. History of Any Multi-Drug Resistant Organisms: MRSA, None Reported Date of last positivie culture/infection: 2011(per pt) MDRO Source:: LEFT ANKLE Past Surgical History: No Surgical Hx Reported Additional Past Surgical History / Comment(s): right forearm abcess, bilateral inguinal hernia repairs as an infant. Past Anesthesia/Blood Transfusion Reactions: No Reported Reaction Past Psychological History: Anxiety, Depression Smoking Status: Current every day smoker Past Alcohol Use History: Occasional Past Drug Use History: Heroin, IV Drug Use, Marijuana, Methamphetamine - Past Family History Mother Family Medical History: Cancer Additional Family Medical History / Comment(s): Mother had leukemia. She is . Father Family Medical History: Diabetes Mellitus Additional Family Medical History / Comment(s): Father is . General Exam General appearance: alert, in no apparent distress Head exam: Present: atraumatic, normocephalic, normal inspection Eye exam: Present: normal appearance, PERRL, EOMI. Absent: scleral icterus, conjunctival injection, periorbital swelling ENT exam: Present: normal exam, mucous membranes moist. Absent: normal oropharynx Neck exam: Present: normal inspection. Absent: tenderness, meningismus, lymphadenopathy Respiratory exam: Present: normal lung sounds bilaterally. Absent: respiratory distress, wheezes, rales, rhonchi, stridor Cardiovascular Exam: Present: regular rate, normal rhythm, normal heart sounds. Absent: systolic murmur, diastolic murmur, rubs, gallop, clicks GI/Abdominal exam: Present: soft, normal bowel sounds. Absent: distended, tenderness, guarding, rebound, rigid Extremities exam: Present: normal inspection, full ROM, normal capillary refill , other (Left hand by phone does have cellulitis reaction, no palpable abscess) . Absent: tenderness, pedal edema, joint swelling, calf tenderness Back exam: Present: normal inspection Neurological exam: Present: alert, oriented X3, CN II-XII intact Psychiatric exam: Present: normal affect, normal mood Skin exam: Present: warm, dry, intact, normal color. Absent: rash Course Vital Signs 08/08/18 04:08 Temperature 97.6 F Pulse Rate 99 Respiratory 18 Rate Blood Pressure 120/79 O2 Sat by Pulse 99 Oximetry - Reevaluation(s) Reevaluation #1: 08/08/18 04:22 Medical record is reviewed Medical Decision Making - Medical Decision Making 43 male the ER for evaluation. Patient is presenting for evaluation of severe pharyngitis. As well as left hand cellulitis from drug injection. Patient placed on antibiotics and can be discharged home Disposition Clinical Impression: Cellulitis of left hand, Pharyngitis Disposition: HOME SELF-CARE Condition: Good Instructions (If sedation given, give patient instructions): Cellulitis (ED), Pharyngitis (ED) Prescriptions: Amoxic-Pot Clav 875-125Mg [Augmentin 875-125] 1 tab PO Q12HR #20 tablet Sulfamethox-Tmp 800-160Mg [Bactrim DS 800-160 mg] 2 tab PO BID #40 tab Is patient prescribed a controlled substance at d/c from ED?: No Referrals: None,Stated [Primary Care Provider] - 1-2 days
[2018-08-08] MEDS: AMOXIC-POT CLAV 875-125MG 1 EACH TAB PO STA (04:25)
[2018-08-08] MEDS: AMOXIC-POT CLAV 875MG STARTER 2 EACH TABLET PO STA (04:25)
[2018-08-08] MEDS: SULFAMETH-TMP DS STARTER PACK 2 TAB BTL PO STA (04:25)
[2018-08-08] MEDS: SULFAMETHOX-TMP 800-160MG 1 EACH TAB PO STA (04:25)
== END 2018-08-08 04:28 | disposition home or self-care (01) ==
LOC: EC 04:06
DX: L03.114 Cellulitis of left upper limb (principal); J02.9 Acute pharyngitis, unspecified; F17.200 Nicotine dependence, unspecified, uncomplicated; Z86.19 Personal history of other infectious and parasitic diseases; Z88.6 Allergy status to analgesic agent; Z88.8 Allergy status to other drugs, medicaments and biological substances
CPT/HCPCS: 99283

== ENCOUNTER 2018-08-29 21:20 | Emergency (ER) | payer OTHER ==
[2018-08-29 21:31] VITALS: BP 130/83; PULSE 155; RESP 20; TEMP 97.9
[2018-08-29] MEDS ORDERED: HYDROcodone/APAP 7.5-325MG 1 EACH TAB PO ONE (22:09)
[2018-08-29] MEDS ORDERED: CYCLOBENZAPRINE 5 MG TAB PO STA (22:29)
--- NOTE | 2018-08-29 22:49 | CT ---
EXAM: CT Head Without Intravenous Contrast CLINICAL HISTORY: ITS.REASON CT Reason: Pain after trauma TECHNIQUE: Axial computed tomography images of the head/brain without intravenous contrast. CTDI is 45.2 mGy and DLP is 1003.1 mGy-cm. This CT exam was performed using one or more of the following dose reduction techniques: automated exposure control, adjustment of the mA and/or kV according to patient size, and/or use of iterative reconstruction technique. COMPARISON: No relevant prior studies available. FINDINGS: Brain: No intracranial hemorrhage or mass effect. No clear acute large vessel territorial infarct. Ventricles: Unremarkable. No ventriculomegaly. Bones/joints: Unremarkable. No acute fracture. Soft tissues: Unremarkable. Sinuses: Sinusitis, most pronounced to the left maxillary. Mastoid air cells: Unremarkable as visualized. No mastoid effusion. IMPRESSION: No acute brain or skull injury. Left maxillary-predominant sinusitis EXAM: CT Cervical Spine Without Intravenous Contrast CLINICAL HISTORY: ITS.REASON CT Reason: Pain TECHNIQUE: Axial computed tomography images of the cervical spine without intravenous contrast. CTDI is 9.5 mGy and DLP is 303.9 mGy-cm. This CT exam was performed using one or more of the following dose reduction techniques: automated exposure control, adjustment of the mA and/or kV according to patient size, and/or use of iterative reconstruction technique. COMPARISON: No relevant prior studies available. FINDINGS: Vertebrae: No acute fracture. Discs/spinal canal/neural foramina: Disc degeneration is most pronounced at C3-4, C4-5, and C5-6 where there are disc and osteophyte complexes. Soft tissues: Thickened aryepiglottic folds. Paraseptal emphysema at the lung apices. IMPRESSION: No fracture. Thickened aryepiglottic folds.
--- NOTE | 2018-08-30 04:48 | ED ---
General Adult HPI - General Chief complaint: Back Pain/Injury Stated complaint: Back and neck injury Time Seen by Provider: 08/29/18 21:42 Source: patient, RN notes reviewed, old records reviewed Mode of arrival: ambulatory Limitations: no limitations - History of Present Illness Initial comments: 43-year-old male patient passed no history of polysubstance abuse, hepatitis C presents to ED for neck pain. Patient reports that he was working in a gradual and a rubber tire fell from a rafter and hit him on the neck yesterday. Patient reports ED today with neck pain. Patient denies any trauma to head. Patient denies any loss of consciousness. Patient denies any other complaints. Patient denies any lower extremity or upper extremity weakness, loss of bowel or bladder control, paresthesias, saddle anesthesia. Systemic: Pt denies fatigue, myalgia, fever/chills, rash. Pt denies weakness, night sweats, weight loss. Neuro: Pt denies headache, visual disturbances, syncope or pre-syncope. HEENT: Pt denies ocular discharge or irritation, otalgia, rhinorrhea, pharyngitis or notable lymphadenopathy. Cardiopulmonary: Pt denies chest pain, SOB, heart palpitations, dyspnea on exertion. Abdominal/GI: Pt denies abdominal pain, n/v/d. : Pt denies dysuria, burning w/ urination, frequency/urgency. Denies new onset urinary or bowel incontinence. MSK: Pt denies myalgia, loss of strength or function in extremities. Neuro: Pt denies new onset weakness, paresthesias. - Related Data Home Medications Medication Instructions Recorded Confirmed No Known Home Medications 08/29/18 08/29/18 Allergies Allergy/AdvReac Type Severity Reaction Status Date / Time ketorolac [From Toradol] Allergy Rash/Hives Verified 08/29/18 21:45 aspirin AdvReac Unknown Verified 08/29/18 21:45 theophylline AdvReac Unknown Verified 08/29/18 21:45 Childhood Review of Systems ROS Statement: Those systems with pertinent positive or pertinent negative responses have been documented in the HPI. ROS Other: All systems not noted in ROS Statement are negative. Past Medical History Past Medical History: Asthma, GERD/Reflux, Liver Disease, Pneumonia Additional Past Medical History / Comment(s): Hepatitis C, IVDA, past ODs, carpal tunnel syndrome bilaterally, past RFA abscess with surgery. History of Any Multi-Drug Resistant Organisms: MRSA, None Reported Date of last positivie culture/infection: 2011(per pt) MDRO Source:: LEFT ANKLE Past Surgical History: No Surgical Hx Reported Additional Past Surgical History / Comment(s): right forearm abcess, bilateral inguinal hernia repairs as an infant. Past Anesthesia/Blood Transfusion Reactions: No Reported Reaction Past Psychological History: Anxiety, Depression Smoking Status: Current every day smoker Past Alcohol Use History: Occasional Past Drug Use History: Heroin, IV Drug Use, Marijuana, Methamphetamine - Past Family History Mother Family Medical History: Cancer Additional Family Medical History / Comment(s): Mother had leukemia. She is . Father Family Medical History: Diabetes Mellitus Additional Family Medical History / Comment(s): Father is . General Exam - General Exam Comments Initial Comments: Constitutional: NAD, AOX3, Pt has pleasant affect. HEENT: NC/AT, trachea midline, neck supple, no lymphadenopathy. Posterior pharynx non erythematous, without exudates. External ears appear normal, without discharge. Mucous membranes moist. Eyes PERRLA, EOM intact. There is no scleral icterus. No pallor noted. Cardiopulmonary: RRR, no murmurs, rubs or gallops, no JVD noted. Lungs CTAB in anterior and posterior taylor. No peripheral edema. HR during exam 88. Abdominal exam: Abdomen soft and non-distended. Abdomen non-tender to palpation in all 4 quadrants. Bowel sounds active in LLQ. No hepatosplenomegaly. No ecchymosis Neuro: CN II-XII intact. No nuchal rigidity. Mild amount of cervical spinal tenderness. MSK: No posterior calf tenderness bilaterally, homans sign negative bilaterally. Posterior tibialis and radial pulse +2 bilaterally. Sensation intact in upper and lower extremities. Full active ROM in upper and lower extremities, 5/5 stregnth. Limitations: no limitations Course Vital Signs 08/29/18 21:28 Temperature 97.9 F Pulse Rate 155 H Respiratory 20 Rate Blood Pressure 130/83 O2 Sat by Pulse 97 Oximetry Medical Decision Making - Medical Decision Making 43-year-old male patient passed no history of polysubstance abuse, hepatitis C presents to ED for neck pain. Patient reports that he was working in a gradual and a rubber tire fell from a rafter and hit him on the neck yesterday. Patient reports ED today with neck pain. Patient denies any trauma to head. Patient denies any loss of consciousness. Patient denies any other complaints. Patient denies any lower extremity or upper extremity weakness, loss of bowel or bladder control, paresthesias, saddle anesthesia. Patient vital signs displayed mild tachycardia. Heart rate during exam 88. Physical exam displayed : CN II-XII intact. No nuchal rigidity. Mild amount of cervical spinal tenderness. Patient was placed in a c-collar, administered oral analgesic, and was sent for CT of brain and cervical spine. After CT patient left AMA prior to result of CT of brain and cervical spine. Patient reports he is going to [facility]. Risks of leaving AMA discussed with patient including , disability, patient verbalized understanding. CT of brain and cervical spine not displaying any acute process. Case discussed with Dr. Carvajal . Patient states that he is not driving. Disposition Clinical Impression: Neck pain Disposition: Left Against Medical Advice Condition: Undetermined Is patient prescribed a controlled substance at d/c from ED?: No Referrals: Vignesh Killian DO [Primary Care Provider] - 1-2 days
== END 2018-08-29 22:37 | disposition left against medical advice (07) ==
LOC: EC 21:20
DX: M54.2 Cervicalgia (principal); R00.0 Tachycardia, unspecified; F17.200 Nicotine dependence, unspecified, uncomplicated; Z86.14 Personal history of Methicillin resistant Staphylococcus aureus infection; Z86.19 Personal history of other infectious and parasitic diseases; Z53.29 Procedure and treatment not carried out because of patient's decision for other reasons; Z88.6 Allergy status to analgesic agent; Z88.8 Allergy status to other drugs, medicaments and biological substances
CPT/HCPCS: 70450; 72125; 99284

== ENCOUNTER 2018-09-17 00:37 | Emergency (ER) | payer OTHER ==
[2018-09-17] MEDS ORDERED: DIAZEPAM 5 MG/ML 2 ML INJ IM ONE (01:27)
[2018-09-17] MEDS ORDERED: IBUPROFEN 400 MG TAB PO STA (01:28)
--- NOTE | 2018-09-17 01:38 | CT ---
EXAM: CT Cervical Spine Without Intravenous Contrast CLINICAL HISTORY: ITS.REASON CT Reason: Pain TECHNIQUE: Axial computed tomography images of the cervical spine without intravenous contrast. CTDI is 16 mGy and DLP is 419 mGy-cm. This CT exam was performed using one or more of the following dose reduction techniques: automated exposure control, adjustment of the mA and/or kV according to patient size, and/or use of iterative reconstruction technique. COMPARISON: 08/29/[address] FINDINGS: Vertebrae: Opposing endplate fractures at C5-6. Inferior anterior corner fracture of C5 and superior endplate wedging (20%) of C6. Discs/spinal canal/neural foramina: Mild spinal canal stenosis at C5-6. Mildly perched left C5-6 facet. Soft tissues: Significant prevertebral edema at C5-6. Paraseptal emphysema. IMPRESSION: 1. Acute opposing endplate fractures at C5-6, possibly related to hyperflexion injury. There is increased C5-6 interspinous distance consistent with ligamentous tear. There is also mild perching of the left C5-6 facet joint. Mild C5-6 spinal canal stenosis. Recommend MRI for better characterization. <MYCVCSECTION> Critical Value Communications 09/17/18 01:40 Call Doctor Regarding Above results, called Dr. Christensen on 09/17 01:40 (-04:00)
[2018-09-17] MEDS ORDERED: METHADONE 10 MG TAB PO STA (01:47)
[2018-09-17] MEDS ORDERED: HYDROmorphone 1 MG/ML 1 ML SYRINGE IM STA (01:47)
--- NOTE | 2018-09-17 01:53 | ED ---
Neck Injury/Pain HPI - General Chief Complaint: Neck Pain/Injury Stated Complaint: Neck Pain Time Seen by Provider: 09/17/18 00:43 Mode of arrival: ambulatory Limitations: no limitations - History of Present Illness Initial Comments: 's patient is a 43-year-old man who presents with complaint of neck pain. The patient states that he had a bit of a fall approximately 2 weeks ago and had some neck pain. He was seen here for this and was told that he had sprained his neck. The patient relates that he had been taking ibuprofen which was somewhat though not fully managing the pain and then last night he states that he flex his neck felt a pop and now is having severe neck pain. The patient indicates the lower cervical area. He is denying any neurologic symptoms, no weakness or numbness of the extremities. Patient states the pain is constant, severe, sharp. The pain is worse if he attempts to move his neck. He has not noted any relieving factors. MD Complaint: neck pain Onset/Timin -: week(s) Place: home Severity: severe, constant Quality: sharp Consistency: constant Improves With: none Worsens With: movement of neck Context: turning/bending Associated Symptoms: none Treatments Prior to Arrival: Ibuprofen - Related Data Home Medications Medication Instructions Recorded Confirmed No Known Home Medications 08/29/18 08/29/18 Allergies Allergy/AdvReac Type Severity Reaction Status Date / Time ketorolac [From Toradol] Allergy Rash/Hives Verified 09/17/18 00:45 aspirin AdvReac Unknown Verified 09/17/18 00:45 theophylline AdvReac Unknown Verified 09/17/18 00:45 Childhood Review of Systems ROS Statement: Those systems with pertinent positive or pertinent negative responses have been documented in the HPI. ROS Other: All systems not noted in ROS Statement are negative. Constitutional: Denies: fever, chills, weakness ENT: Denies: throat pain Respiratory: Denies: cough, dyspnea Cardiovascular: Denies: chest pain, syncope Gastrointestinal: Denies: abdominal pain, vomiting, diarrhea Musculoskeletal: Reports: other (Neck pain). Denies: back pain Skin: Denies: rash Neurological: Denies: headache, weakness, numbness, paresthesias Past Medical History Past Medical History: Asthma, GERD/Reflux, Liver Disease, Pneumonia Additional Past Medical History / Comment(s): Hepatitis C, IVDA, past ODs, carpal tunnel syndrome bilaterally, past RFA abscess with surgery. History of Any Multi-Drug Resistant Organisms: MRSA, None Reported Date of last positivie culture/infection: 2011(per pt) MDRO Source:: LEFT ANKLE Past Surgical History: No Surgical Hx Reported Additional Past Surgical History / Comment(s): right forearm abcess, bilateral inguinal hernia repairs as an infant. Past Anesthesia/Blood Transfusion Reactions: No Reported Reaction Past Psychological History: Anxiety, Depression Smoking Status: Current every day smoker Past Alcohol Use History: Occasional Past Drug Use History: Heroin, IV Drug Use, Marijuana, Methamphetamine - Past Family History Mother Family Medical History: Cancer Additional Family Medical History / Comment(s): Mother had leukemia. She is . Father Family Medical History: Diabetes Mellitus Additional Family Medical History / Comment(s): Father is . General Exam Limitations: no limitations General appearance: alert, in no apparent distress Head exam: Present: atraumatic, normocephalic Eye exam: Present: normal appearance. Absent: scleral icterus, conjunctival injection Neck exam: Present: tenderness (Is tenderness over the lower cervical spine from probably C4 area down to C7). Absent: full ROM (The patient range of motion is limited by pain) Respiratory exam: Present: normal lung sounds bilaterally. Absent: respiratory distress, wheezes, rales, rhonchi, stridor Cardiovascular Exam: Present: regular rate, normal rhythm, normal heart sounds. Absent: systolic murmur, diastolic murmur, rubs, gallop GI/Abdominal exam: Present: soft. Absent: distended, tenderness, guarding, rebound, rigid Extremities exam: Present: normal capillary refill Back exam: Present: normal inspection. Absent: CVA tenderness (R), CVA tenderness (L), vertebral tenderness Neurological exam: Present: alert, oriented X3. Absent: motor sensory deficit Skin exam: Present: warm, dry, intact, normal color. Absent: rash Course Vital Signs 09/17/18 00:38 Temperature 97.4 F L Pulse Rate 100 Respiratory 18 Rate Blood Pressure 123/79 O2 Sat by Pulse 98 Oximetry Disposition Clinical Impression: Closed cervical spine fracture Disposition: OTHER INSTITUTION NOT DEFINED Condition: Serious Is patient prescribed a controlled substance at d/c from ED?: No Referrals: None,Stated [Primary Care Provider] - 1-2 days - Out of Hospital Transfer - Req. Specs Out of Hospital Transfer - Requested Specifics: Other Emergency Center ([facility])
[2018-09-17 02:23] LABS: Basophils % (A) 1 %; Eosinophils # (A) 0.2 k/uL (0-0.7); Eosinophils % (A) 2 %; HCT 41.5 % (39.0-53.0); HGB 13.9 gm/dL (13.0-17.5); Lymphocytes # (A) 1.7 k/uL (1.0-4.8); Lymphocytes % (A) 26 %; MCH 30.3 pg (25.0-35.0); MCHC 33.6 g/dL (31.0-37.0); MCV 90.1 fL (80.0-100.0); Mean Platelet Volume 7.1; Monocytes # (A) 0.5 k/uL (0-1.0); Monocytes % (A) 7 %; Neutrophils # (A) 3.9 k/uL (1.3-7.7); Neutrophils % (A) 61 %; Platelet Count 249 k/uL (150-450); RDW 13.9 % (11.5-15.5); WBC 6.4 k/uL (3.8-10.6)
[2018-09-17 02:32] LABS: Anion Gap 11 mmol/L; Blood Urea Nitrogen 15 mg/dL (9-20); Calcium 9.5 mg/dL (8.4-10.2); Carbon Dioxide 25 mmol/L (22-30); Chloride 100 mmol/L (98-107); Glucose 123 mg/dL (74-99); Partial Thromboplastin Time 25.8 sec (22.0-30.0); Potassium 4.1 mmol/L (3.5-5.1); Prothrombin Time 10.9 sec (9.0-12.0); Sodium 136 mmol/L (137-145)
[2018-09-17 02:33] VITALS: BP 104/83; PULSE 83; RESP 17; TEMP 98.3
== END 2018-09-17 02:20 | disposition other institution (70) ==
LOC: EC 00:37
DX: S12.400A Unspecified displaced fracture of fifth cervical vertebra, initial encounter for closed fracture (principal); F17.200 Nicotine dependence, unspecified, uncomplicated; Z87.39 Personal history of other diseases of the musculoskeletal system and connective tissue; Z86.14 Personal history of Methicillin resistant Staphylococcus aureus infection; Z98.890 Other specified postprocedural states; Z88.6 Allergy status to analgesic agent; Z88.8 Allergy status to other drugs, medicaments and biological substances; W20.8XXA Other cause of strike by thrown, projected or falling object, initial encounter; Y92.015 Private garage of single-family (private) house as the place of occurrence of the external cause
CPT/HCPCS: 36415; 72125; 80048; 85025; 85610; 85730; 96372; 99285

== ENCOUNTER 2018-09-28 01:32 | Emergency (ER) | payer OTHER ==
[2018-09-28] MEDS ORDERED: ACETAMINOPHEN TAB 325 MG TAB PO STA (03:53)
[2018-09-28] MEDS ORDERED: HYDROcodone/APAP 5-325MG 1 EACH TAB PO STA (03:54)
[2018-09-28] MEDS ORDERED: LIDOCAINE 1% INJ 10MG/ML (20 ML MDV) SQ ONE (03:54)
[2018-09-28] MEDS: SODIUM CHLORIDE 0.9% 500 ML 500 ML IV SCH ×2 (04:28→06:20)
[2018-09-28 04:43] LABS: Basophils % (A) 0 %; Eosinophils # (A) 0.1 k/uL (0-0.7); Eosinophils % (A) 1 %; HCT 39.9 % (39.0-53.0); HGB 13.5 gm/dL (13.0-17.5); Lymphocytes % (A) 17 %; MCHC 33.8 g/dL (31.0-37.0); MCV 91.5 fL (80.0-100.0); Mean Platelet Volume 6.5; Monocytes # (A) 0.8 k/uL (0-1.0); Monocytes % (A) 7 %; Neutrophils # (A) 8.4 k/uL (1.3-7.7); Neutrophils % (A) 73 %; Platelet Count 211 k/uL (150-450); RBC 4.36 m/uL (4.30-5.90); RDW 13.5 % (11.5-15.5); WBC 11.5 k/uL (3.8-10.6)
[2018-09-28 04:52] LABS: Partial Thromboplastin Time 29.3 sec (22.0-30.0); Prothrombin Time 10.8 sec (9.0-12.0)
--- NOTE | 2018-09-28 04:54 | ED ---
Skin/Abscess/FB HPI - General Source: patient Mode of arrival: ambulatory Limitations: no limitations <Benita Mckinley - Last Filed: 09/28/18 06:13> <Shirlene Soria - Last Filed: 09/28/18 07:09> - General Chief complaint: Skin/Abscess/Foreign Body Stated complaint: abscess on hand, neck pain Time Seen by Provider: 09/28/18 03:49 - History of Present Illness Initial comments: 43-year-old male patient presents to the emergency department today for evaluation of abscess to the left wrist. Patient states for the last 2 days he has noticed swelling over the wrist that has progressively worsened. Patient d enies any fevers or chills with this. Patient states the area is becoming quite painful in his hand is becoming swollen. Patient states it does hurt to move the wrist. Patient does admit to IV drug use and does admit to injecting at the left wrist site. Patient is also reporting severe neck pain. Patient states he was seen and evaluated here about a week ago and was diagnosed with cervical fr acture. States he was transferred to [facility] and then left AGAINST MEDICAL ADVICE due to not receiving adequate pain control. Patient states that he has radiation of pain down the left arm. He denies any new symptoms. Denies any new injury to the neck. He is wearing a hard c-collar. Patient denies any recent rash, shortness breath, chest pain, abdominal pain, nausea, vomiting, diarrhea, constipation, back pain, numbness, tingling, dizziness, weakness, hematuria, dysuria, urinary urgency, urinary frequency, visual changes, or any other complaints. (Benita Mckinley) - Related Data Home Medications Medication Instructions Recorded Confirmed No Known Home Medications 08/29/18 08/29/18 Allergies Allergy/AdvReac Type Severity Reaction Status Date / Time ketorolac [From Toradol] Allergy Rash/Hives Verified 09/17/18 00:45 aspirin AdvReac Unknown Verified 09/17/18 00:45 theophylline AdvReac Unknown Verified 09/17/18 00:45 Childhood Review of Systems ROS Other: All systems not noted in ROS Statement are negative. <Benita Mckinley - Last Filed: 09/28/18 06:13> ROS Other: All systems not noted in ROS Statement are negative. <Shirlene Soria - Last Filed: 09/28/18 07:09> ROS Statement: Those systems with pertinent positive or pertinent negative responses have been documented in the HPI. Past Medical History Past Medical History: Asthma, GERD/Reflux, Liver Disease, Pneumonia Additional Past Medical History / Comment(s): Hepatitis C, IVDA, past ODs, carpal tunnel syndrome bilaterally, past RFA abscess with surgery. History of Any Multi-Drug Resistant Organisms: MRSA, None Reported Date of last positivie culture/infection: 2011(per pt) MDRO Source:: LEFT ANKLE Past Surgical History: No Surgical Hx Reported Additional Past Surgical History / Comment(s): right forearm abcess, bilateral inguinal hernia repairs as an infant. Past Anesthesia/Blood Transfusion Reactions: No Reported Reaction Past Psychological History: Anxiety, Depression Smoking Status: Current every day smoker Past Alcohol Use History: Occasional Past Drug Use History: Heroin, IV Drug Use, Marijuana, Methamphetamine - Past Family History Mother Family Medical History: Cancer Additional Family Medical History / Comment(s): Mother had leukemia. She is . Father Family Medical History: Diabetes Mellitus Additional Family Medical History / Comment(s): Father is . <Benita Mckinley M - Last Filed: 09/28/18 06:13> General Exam Limitations: no limitations General appearance: alert, in no apparent distress, other (Physical well- developed, well-nourished male patient in no acute distress. Vital signs upon presentation are temperature 97.2F, pulse 120, respirations 20, blood pressure 133/81, pulse ox 99% on room air.) Eye exam: Present: normal appearance, PERRL, EOMI. Absent: scleral icterus, conjunctival injection, periorbital swelling ENT exam: Present: normal exam, normal oropharynx, mucous membranes moist Respiratory exam: Present: normal lung sounds bilaterally. Absent: respiratory distress, wheezes, rales, rhonchi, stridor Cardiovascular Exam: Present: regular rate, normal rhythm, normal heart sounds. Absent: systolic murmur, diastolic murmur, rubs, gallop, clicks GI/Abdominal exam: Present: soft, normal bowel sounds. Absent: distended, tenderness, guarding, rebound, rigid Extremities exam: Present: full ROM, normal capillary refill, other (Patient has large abscess noted over the dorsal aspect of the left wrist, generalized hand swelling and erythema. Erythema extending up the forearm. Radial pulses 2+ and equal bilaterally. Patient does have full range of motion of the wrist and hand. No axillary lymphadenopathy noted.). Absent: normal inspection, tenderness, pedal edema, joint swelling, calf tenderness Neurological exam: Present: alert, oriented X3, CN II-XII intact Psychiatric exam: Present: normal affect, normal mood Skin exam: Present: warm, dry, intact, normal color. Absent: rash <Benita Mckinley - Last Filed: 09/28/18 06:13> Course Vital Signs 09/28/18 09/28/18 01:41 05:46 Temperature 97.2 F L 97.5 F L Pulse Rate 120 H 82 Respiratory 20 18 Rate Blood Pressure 133/81 128/80 O2 Sat by Pulse 99 98 Oximetry Procedures - Incision & Drainage Consent Obtained: verbal consent Indication: Abscess Site: upper extremity (Left wrist) Size (cm): 3 Anesthetic Used: lidocaine 1% Amount (mLs): 5 I&D Cleaning Method: Betadine Sterile Field Used?: Yes Scalpel Used: #11 Needle Aspiration Performed?: No Irrigation Performed?: No I&D Drainage Obtained: Pus, Blood Packing: Other (Refused) Culture Obtained?: Yes Patient Tolerated Procedure: well, no complications <Benita Mckinley - Last Filed: 09/28/18 06:13> Medical Decision Making - Lab Data Result diagrams: 09/28/18 04:22 09/28/18 04:22 - Radiology Data Radiology results: report reviewed, image reviewed <Benita Mckinley - Last Filed: 09/28/18 06:13> - Lab Data Result diagrams: 09/28/18 04:22 09/28/18 04:22 <Shirlene Soria - Last Filed: 09/28/18 07:09> - Medical Decision Making 43-year-old male patient presented to the emergency department today for evaluation of left wrist abscess and increased neck pain. Patient was diagnosed with cervical fracture approximately 11 days ago. Patient was seen and evaluated at [facility], however left AGAINST MEDICAL ADVICE because his pain wasn't being managed. Patient states over the last 24-48 hours the pain is increased in his neck and is now radiating down the left arm. Patient states he developed the abscess 2 days ago. Physical examination does reveal intact neuro exam. I did perform incision and drainage of the left wrist abscess. Culture was obtained. Labs reviewed and did reveal mildly elevated white blood cell count. Normal lactic acid. Vital signs are stable, he is afebrile. We'll repeat computed tomography scan of the neck which is currently pending. Care will be handed over to my attending Dr. Soria at 0615. (Benita Mckinley) Patient care was signed out to me by the mid-level provider. 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 Repeat CT was obtained which revealed persistence of the fracture C5-C6 however there is now increasing distance between C5 and C6 concerning for ligamentous tear radiology recommends a MRI. This was discussed with the patient who is agreeable to a transferred to [facility] for reevaluation by neurosurgery. Patient care was discussed with ER physician at [facility] who accepts the transfer for evaluation by neurosurgery. (Shirlene Soria) - Lab Data Lab Results 09/28/18 09/28/18 09/28/18 Range/Units 04:22 04:22 04:22 WBC 11.5 H (3.8-10.6) k/uL RBC 4.36 (4.30-5.90) m/uL Hgb 13.5 (13.0-17.5) gm/dL Hct 39.9 (39.0-53.0) % MCV 91.5 (80.0-100.0) fL MCH 31.0 (25.0-35.0) pg MCHC 33.8 (31.0-37.0) g/dL RDW 13.5 (11.5-15.5) % Plt Count 211 (150-450) k/uL Neutrophils % 73 % Lymphocytes % 17 % Monocytes % 7 % Eosinophils % 1 % Basophils % 0 % Neutrophils # 8.4 H (1.3-7.7) k/uL Lymphocytes # 2.0 (1.0-4.8) k/uL Monocytes # 0.8 (0-1.0) k/uL Eosinophils # 0.1 (0-0.7) k/uL Basophils # 0.0 (0-0.2) k/uL PT (9.0-12.0) sec INR (<1.2) APTT (22.0-30.0) sec Sodium 133 L (137-145) mmol/L Potassium 4.0 (3.5-5.1) mmol/L Chloride 98 (98-107) mmol/L Carbon Dioxide 27 (22-30) mmol/L Anion Gap 8 mmol/L BUN 8 L (9-20) mg/dL Creatinine 0.47 L (0.66-1.25) mg/dL Est GFR (CKD-EPI)AfAm >90 (>60 ml/min/1.73 sqM) Est GFR (CKD-EPI)NonAf >90 (>60 ml/min/1.73 sqM) Glucose 101 H (74-99) mg/dL Plasma Lactic Acid Salvador 0.8 (0.7-2.0) mmol/L Calcium 9.4 (8.4-10.2) mg/dL Total Bilirubin 1.2 (0.2-1.3) mg/dL AST 91 H (17-59) U/L ALT 128 H (21-72) U/L Alkaline Phosphatase 120 (38-126) U/L Total Protein 8.3 H (6.3-8.2) g/dL Albumin 4.0 (3.5-5.0) g/dL Urine Color Urine Appearance (Clear) Urine pH (5.0-8.0) Ur Specific [place] (1.001-1.035) Urine Protein (Negative) Urine Glucose (UA) (Negative) Urine Ketones (Negative) Urine Blood (Negative) Urine Nitrite (Negative) Urine Bilirubin (Negative) Urine Urobilinogen (<2.0) mg/dL Ur Leukocyte Esterase (Negative) 09/28/18 09/28/18 Range/Units 04:22 06:15 WBC (3.8-10.6) k/uL RBC (4.30-5.90) m/uL Hgb (13.0-17.5) gm/dL Hct (39.0-53.0) % MCV (80.0-100.0) fL MCH (25.0-35.0) pg MCHC (31.0-37.0) g/dL RDW (11.5-15.5) % Plt Count (150-450) k/uL Neutrophils % % Lymphocytes % % Monocytes % % Eosinophils % % Basophils % % Neutrophils # (1.3-7.7) k/uL Lymphocytes # (1.0-4.8) k/uL Monocytes # (0-1.0) k/uL Eosinophils # (0-0.7) k/uL Basophils # (0-0.2) k/uL PT 10.8 (9.0-12.0) sec INR 1.0 (<1.2) APTT 29.3 (22.0-30.0) sec Sodium (137-145) mmol/L Potassium (3.5-5.1) mmol/L Chloride (98-107) mmol/L Carbon Dioxide (22-30) mmol/L Anion Gap mmol/L BUN (9-20) mg/dL Creatinine (0.66-1.25) mg/dL Est GFR (CKD-EPI)AfAm (>60 ml/min/1.73 sqM) Est GFR (CKD-EPI)NonAf (>60 ml/min/1.73 sqM) Glucose (74-99) mg/dL Plasma Lactic Acid [place] (0.7-2.0) mmol/L Calcium (8.4-10.2) mg/dL Total Bilirubin (0.2-1.3) mg/dL AST (17-59) U/L ALT (21-72) U/L Alkaline Phosphatase (38-126) U/L Total Protein (6.3-8.2) g/dL Albumin (3.5-5.0) g/dL Urine Color Yellow Urine Appearance Clear (Clear) Urine pH 6.0 (5.0-8.0) Ur Specific [place] 1.007 (1.001-1.035) Urine Protein Negative (Negative) Urine Glucose (UA) Negative (Negative) Urine Ketones Negative (Negative) Urine Blood Negative (Negative) Urine Nitrite Negative (Negative) Urine Bilirubin Negative (Negative) Urine Urobilinogen <2.0 (<2.0) mg/dL Ur Leukocyte Esterase Negative (Negative) - Radiology Data 3 views of the left wrist are obtained. Report was reviewed in its entirety. Impression by Dr. Domínguez shows no acute findings. 3 views of the left hand are obtained. Report was reviewed in its entirety. Impression by Dr. Domínguez shows no acute osseous findings. (Benita Mckinley) Disposition <Benita Mckinley - Last Filed: 09/28/18 06:13> - Out of Hospital Transfer - Req. Specs Out of Hospital Transfer - Requested Specifics: Other Emergency Center ([facility]) <Shirlene Soria - Last Filed: 09/28/18 07:09> Clinical Impression: Cellulitis, IV drug user, Closed cervical spine fracture, Cellulitis of right arm, Abscess of arm, right, Heroin abuse Disposition: OTHER INSTITUTION NOT DEFINED Referrals: None,Stated [Primary Care Provider] - 1-2 days
[2018-09-28 04:59] LABS: ALT 128 U/L (21-72); AST 91 U/L (17-59); Alkaline Phosphatase 120 U/L (38-126); Anion Gap 8 mmol/L; Blood Urea Nitrogen 8 mg/dL (9-20); Calcium 9.4 mg/dL (8.4-10.2); Carbon Dioxide 27 mmol/L (22-30); Chloride 98 mmol/L (98-107); Glucose 101 mg/dL (74-99); Sodium 133 mmol/L (137-145); Total Bilirubin 1.2 mg/dL (0.2-1.3); Total Protein 8.3 g/dL (6.3-8.2)
--- NOTE | 2018-09-28 05:25 | XR ---
EXAM: XR Left Wrist Complete, 3 or More Views CLINICAL HISTORY: ITS.REASON XR Reason: Infection/R.O. Foreign body TECHNIQUE: Frontal, lateral and oblique views of the left wrist. COMPARISON: No relevant prior studies available. FINDINGS: Bones/joints: No acute fracture. No dislocation. Soft tissues: Unremarkable. No radiopaque foreign body. IMPRESSION: No acute findings.
--- NOTE | 2018-09-28 05:25 | XR ---
EXAM: XR Left Hand Complete, 3 or More Views CLINICAL HISTORY: ITS.REASON XR Reason: Infection/R.O. Foreign body TECHNIQUE: Frontal, lateral and oblique views of the left hand. COMPARISON: 03/26/14 radiograph FINDINGS: Bones/joints: No acute fracture. No dislocation. Soft tissues: Soft tissue swelling overlying the ventral wrist. No radiopaque foreign body. IMPRESSION: No acute osseous findings.
[2018-09-28 05:47] VITALS: PULSE 82
[2018-09-28] MEDS ORDERED: HYDROmorphone 2 MG/ML 1 ML SYRINGE IVP STA (05:56)
[2018-09-28] MEDS ORDERED: SULFAMETHOX-TMP 800-160MG 1 EACH TAB PO STA (05:57)
[2018-09-28] MEDS ORDERED: CEPHALEXIN 500 MG CAP PO STA (05:57)
[2018-09-28 06:34] LABS: Appearance,Urine Clear (Clear); Bilirubin,Urine Negative (Negative); Blood,Urine Negative (Negative); Color,Urine Yellow; Glucose,Urine (UA) Negative (Negative); Ketones,Urine Negative (Negative); Leukocyte Esterase,Urine Negative (Negative); Nitrite,Urine Negative (Negative); Protein,Urine Negative (Negative); Specific Gravity,Urine 1.007 (1.001-1.035); Urobilinogen,Urine <2.0 mg/dL (<2.0)
--- NOTE | 2018-09-28 07:05 | CT ---
EXAM: CT Cervical Spine Without Intravenous Contrast CLINICAL HISTORY: ITS.REASON CT Reason: Pain TECHNIQUE: Axial computed tomography images of the cervical spine without intravenous contrast. CTDI is 10 mGy and DLP is 274 mGy-cm. This CT exam was performed using one or more of the following dose reduction techniques: automated exposure control, adjustment of the mA and/or kV according to patient size, and/or use of iterative reconstruction technique. COMPARISON: 09/17/2018 CT cervical spine FINDINGS: Redemonstration of compression deformity at C5-6. There is increased interspinous distance at C5-6, measuring 10 mm currently, previously 5-6 mm. Remaining levels are intact. Prevertebral soft tissue edema is again noted at C5-6. IMPRESSION: Unchanged C5-6 compression deformity. However there is increased interspinous distance at C5-6 likely representing interval interspinous ligamentous injury/tear. <MYCVCSECTION> Critical Value Communications 09/28/18 07:00 Call Doctor Regarding Above results, called Dr. Soria on 09/28 06:59 (-04:00)
[2018-09-28 07:40] VITALS: BP 114/85; RESP 16; TEMP 97.9
== END 2018-09-28 08:21 | disposition short-term general hospital (02) ==
LOC: EC 01:32
DX: L02.414 Cutaneous abscess of left upper limb (principal); S12.400A Unspecified displaced fracture of fifth cervical vertebra, initial encounter for closed fracture; S12.500A Unspecified displaced fracture of sixth cervical vertebra, initial encounter for closed fracture; F11.10 Opioid abuse, uncomplicated; D72.829 Elevated white blood cell count, unspecified; L03.113 Cellulitis of right upper limb; F17.200 Nicotine dependence, unspecified, uncomplicated; Z88.6 Allergy status to analgesic agent; Z88.8 Allergy status to other drugs, medicaments and biological substances; Z86.14 Personal history of Methicillin resistant Staphylococcus aureus infection; Z98.890 Other specified postprocedural states; X58.XXXA Exposure to other specified factors, initial encounter
CPT/HCPCS: 36415; 80053; 83605; 85025; 85610; 85730; 81003; 87040; 87070; 87205; 73110; 73130; 72125; 99285; 10060; 96374; 96361; J1170; J2001

== ENCOUNTER 2018-10-11 15:03 | Emergency (ER) | payer OTHER ==
[2018-10-11 15:06] VITALS: BP 150/87; PULSE 108; RESP 18; TEMP 97.8
[2018-10-11] MEDS ORDERED: AMPICILLIN-SULBACTAM 3 GM in SODIUM CHLORIDE 0.9% 100 ML IVPB STA (15:53)
--- NOTE | 2018-10-11 16:14 | ED ---
General Adult HPI - General Chief complaint: Neck Pain/Injury Stated complaint: Neck pain Time Seen by Provider: 10/11/18 15:10 Source: patient, RN notes reviewed Mode of arrival: ambulatory Limitations: no limitations - History of Present Illness Initial comments: This is a 43-year-old male who presents emergency Department complaining that he would like the celena removed on the cervical spine area. Patient has an incision at about C4 through C7 on his cervical spine patient states he had surgery there and does know exactly what they did but it occurred 11 days ago. Patient states the area is becoming more more tenderness and wants the celena removed. Patient admits to using heroin and methamphetamines on a daily basis though he states he has yet to use heroin today but he has shot up mass. Patient is stating the area is more tender. Patient states he is taking the antibiotics that he was given when he left the hospital. Patient denies any fever patient denies any drainage in the area. Patient is very uncooperative and demanding to immediately have celena removed. - Related Data Home Medications Medication Instructions Recorded Confirmed No Known Home Medications 08/29/18 09/28/18 Allergies Allergy/AdvReac Type Severity Reaction Status Date / Time ketorolac [From Toradol] Allergy Rash/Hives Verified 10/11/18 15:06 aspirin AdvReac NOSE BLEED Verified 10/11/18 15:06 theophylline AdvReac HEADACHE Verified 10/11/18 15:06 Review of Systems ROS Statement: Those systems with pertinent positive or pertinent negative responses have been documented in the HPI. ROS Other: All systems not noted in ROS Statement are negative. Past Medical History Past Medical History: Asthma, GERD/Reflux, Liver Disease, Pneumonia Additional Past Medical History / Comment(s): Hepatitis C, IVDA, past ODs, carpal tunnel syndrome bilaterally, past RFA abscess with surgery. History of Any Multi-Drug Resistant Organisms: MRSA, None Reported Date of last positivie culture/infection: 2011(per pt) MDRO Source:: LEFT ANKLE Past Surgical History: No Surgical Hx Reported Additional Past Surgical History / Comment(s): right forearm abcess, bilateral inguinal hernia repairs as an . Neck surgery Past Anesthesia/Blood Transfusion Reactions: No Reported Reaction Past Psychological History: Anxiety, Depression Smoking Status: Current every day smoker Past Alcohol Use History: Occasional Past Drug Use History: Heroin, IV Drug Use, Marijuana, Methamphetamine - Past Family History Mother Family Medical History: Cancer Additional Family Medical History / Comment(s): Mother had leukemia. She is dec eased. Father Family Medical History: Diabetes Mellitus Additional Family Medical History / Comment(s): Father is . General Exam - General Exam Comments Initial Comments: GENERAL: Patient is well-developed and well-nourished. Patient is nontoxic and well- hydrated and is in mild distress. ENT: Neck is soft and supple. No significant lymphadenopathy is noted. Oropharynx is clear. Moist mucous membranes. Along the midline of the cervical spine the patient has an incision with celena in it. The distal aspect of that is reddened looking like atrial fibrillation early infection patient has no area of fluctuance. EYES: The sclera were anicteric and conjunctiva were pink and moist. Extraocular movements were intact and pupils were equal round and reactive to light. Eyelids were unremarkable. PULMONARY: Unlabored respirations. Good breath sounds bilaterally. No audible rales rhonchi or wheezing was noted. CARDIOVASCULAR: There is a regular rate and rhythm without any murmurs gallops or rubs. SKIN: Skin is clear with no lesions or rashes and otherwise unremarkable. NEUROLOGIC: Patient is alert and oriented x3. Cranial nerves II through XII are grossly intact. Motor and sensory are also intact. Normal speech, volume and content. Symmetrical smile. MUSCULOSKELETAL: Normal extremities with adequate strength and full range of motion. LYMPHATICS: No significant lymphadenopathy is noted PSYCHIATRIC: Normal psychiatric evaluation. Limitations: no limitations Course Vital Signs 10/11/18 15:04 Temperature 97.8 F Pulse Rate 108 H Respiratory 18 Rate Blood Pressure 150/87 O2 Sat by Pulse 99 Oximetry Medical Decision Making - Medical Decision Making I spoke to Dr. Lai at [facility] and he wanted the patient follow-up on Saturday unless the patient had a significant infection. Dr. Lai did not want me to remove any celena either. I went back and discussed this with the patie nt he got upset and refused any antibiotics refuse an IV and refused blood draw and left AMA. I explained to the patient the possible poor outcome because of his decision he understood he didn't want stay in the left Disposition Clinical Impression: Incisional infection Disposition: Left Against Medical Advice Referrals: None,Stated [Primary Care Provider] - 1-2 days Time of Disposition: 16:29
[2018-10-11] MEDS ORDERED: AMOXIC-POT CLAV 875MG STARTER 2 EACH TABLET PO STA (16:25)
[2018-10-11] MEDS ORDERED: AMOXIC-POT CLAV 875-125MG 1 EACH TAB PO STA (16:28)
== END 2018-10-11 16:36 | disposition left against medical advice (07) ==
LOC: EC 15:03
DX: T81.49XA Infection following a procedure, other surgical site, initial encounter (principal); F17.200 Nicotine dependence, unspecified, uncomplicated; Z88.6 Allergy status to analgesic agent; Z88.8 Allergy status to other drugs, medicaments and biological substances; Z98.890 Other specified postprocedural states
CPT/HCPCS: 99283

== ENCOUNTER 2018-10-28 03:25 | Emergency (ER) | payer OTHER ==
[2018-10-28 03:35] VITALS: BP 123/85; PULSE 98; RESP 18; TEMP 98.1
--- NOTE | 2018-10-28 03:50 | ED ---
General Adult HPI - General Chief complaint: Skin/Abscess/Foreign Body Stated complaint: post op issue Time Seen by Provider: 10/28/18 03:50 Source: patient Mode of arrival: ambulatory Limitations: no limitations - History of Present Illness Initial comments: These a 43-year-old gentleman who presents the emergency department today to have celena removed. Patient underwent C-spine fusion surgery at [facility] nearly 3 weeks ago, patient was subsequently discharged. Patient is currently homeless with no vehicle at the time of discharge he advised the surgical team that he would be unable to travel to [place] for follow-up. He states that he has missed to follow up appointments due to his inability to travel. Patient states that he is scheduled to have celena out last week and was unable to get to his appointment he doesn't know when he would be able to get down to [place] so he came to the ER to have the celena out - Related Data Home Medications Medication Instructions Recorded Confirmed No Known Home Medications 08/29/18 09/28/18 Allergies Allergy/AdvReac Type Severity Reaction Status Date / Time ketorolac [From Toradol] Allergy Rash/Hives Verified 10/28/18 03:35 aspirin AdvReac NOSE BLEED Verified 10/28/18 03:35 theophylline AdvReac HEADACHE Verified 10/28/18 03:35 Review of Systems ROS Statement: Those systems with pertinent positive or pertinent negative responses have been documented in the HPI. ROS Other: All systems not noted in ROS Statement are negative. Past Medical History Past Medical History: Asthma, GERD/Reflux, Liver Disease, Pneumonia Additional Past Medical History / Comment(s): Hepatitis C, IVDA, past ODs, carpal tunnel syndrome bilaterally, past RFA abscess with surgery. History of Any Multi-Drug Resistant Organisms: MRSA, None Reported Date of last positivie culture/infection: 2011(per pt) MDRO Source:: LEFT ANKLE Past Surgical History: No Surgical Hx Reported Additional Past Surgical History / Comment(s): right forearm abcess, bilateral inguinal hernia repairs as an infant. Neck surgery Past Anesthesia/Blood Transfusion Reactions: No Reported Reaction Past Psychological History: Anxiety, Depression Smoking Status: Current every day smoker Past Alcohol Use History: Occasional Past Drug Use History: Heroin, IV Drug Use, Marijuana, Methamphetamine - Past Family History Mother Family Medical History: Cancer Additional Family Medical History / Comment(s): Mother had leukemia. She is . Father Family Medical History: Diabetes Mellitus Additional Family Medical History / Comment(s): Father is . General Exam - General Exam Comments Initial Comments: Physical Exam GENERAL: Patient is well-developed and well-nourished. Patient is nontoxic and well-hydrated and is in no distress. HENT: Normocephalic, Atraumatic. EYES: PERRL, EOMI PULMONARY: Unlabored respirations. CARDIOVASCULAR: RRR ABDOMEN: Non-distended SKIN: Healed surgical incision left of the midline in the spine, 15 well-healed celena in place : Deferred NEUROLOGIC: Patient is alert and oriented x3. Moving all extremities spontaneously MUSCULOSKELETAL: Normal extremities with adequate strength and full range of motion. No lower extremity swelling or edema. No calf tenderness. Decrease range of motion of the cervical spine secondary to recent surgery PSYCHIATRIC: Normal psychiatric evaluation. Limitations: no limitations Course Vital Signs 10/28/18 03:31 Temperature 98.1 F Pulse Rate 98 Respiratory 18 Rate Blood Pressure 123/85 O2 Sat by Pulse 96 Oximetry Medical Decision Making - Medical Decision Making The patient was seen and evaluated, history was obtained from patient 15 celena removed Wound is well healed with no signs of infection Patient discharged home in stable condition. Disposition Clinical Impression: Encounter for staple removal Disposition: HOME SELF-CARE Condition: Stable Instructions (If sedation given, give patient instructions): Staple Care (ED) Is patient prescribed a controlled substance at d/c from ED?: No Referrals: None,Stated [Primary Care Provider] - 1-2 days
== END 2018-10-28 04:21 | disposition home or self-care (01) ==
LOC: EC 03:25
DX: Z48.02 Encounter for removal of sutures (principal); F17.200 Nicotine dependence, unspecified, uncomplicated; Z88.6 Allergy status to analgesic agent; Z88.8 Allergy status to other drugs, medicaments and biological substances; Z59.0 Homelessness; Z98.1 Arthrodesis status
CPT/HCPCS: 99281

== ENCOUNTER 2018-11-04 04:40 | Emergency (ER) | payer OTHER ==
[2018-11-04] MEDS ORDERED: ACET/COD 300 MG/30 MG STARTER PACK 6 TAB BTL PO STA (05:38)
--- NOTE | 2018-11-04 05:38 | ED ---
Neck Injury/Pain HPI - General Chief Complaint: Neck Pain/Injury Stated Complaint: Neck pain Time Seen by Provider: 11/04/18 05:35 Source: RN notes reviewed, old records reviewed Mode of arrival: ambulatory Limitations: no limitations - History of Present Illness Initial Comments: This is a 43-year-old male the ER for evaluation. Patient is presenting for reevaluation of neck pain. Patient has recent neck surgery within the last month. He is homeless has no rider ability to follow-up. This is patient's third ER visits this hospital in the past month, patient currently out of pain medications denies fever. He states that his pain is been persistent. Patient does admit to heroin abuse, admits to being out of pain medication. MD Complaint: neck pain, other (Postoperative pain) -: week(s) Place: home Severity: mild Severity scale (1-10): 3 Quality: dull Consistency: intermittent Improves With: none Worsens With: none Associated Symptoms: none - Related Data Home Medications Medication Instructions Recorded Confirmed No Known Home Medications 08/29/18 11/04/18 Allergies Allergy/AdvReac Type Severity Reaction Status Date / Time ketorolac [From Toradol] Allergy Rash/Hives Verified 11/04/18 07:00 aspirin AdvReac NOSE BLEED Verified 11/04/18 07:00 theophylline AdvReac HEADACHE Verified 11/04/18 07:00 Review of Systems ROS Statement: Those systems with pertinent positive or pertinent negative responses have been documented in the HPI. ROS Other: All systems not noted in ROS Statement are negative. Past Medical History Past Medical History: Asthma, GERD/Reflux, Liver Disease, Pneumonia Additional Past Medical History / Comment(s): Hepatitis C, IVDA, past ODs, carpal tunnel syndrome bilaterally, past RFA abscess with surgery. History of Any Multi-Drug Resistant Organisms: MRSA, None Reported Date of last positivie culture/infection: 2011(per pt) MDRO Source:: LEFT ANKLE Past Surgical History: No Surgical Hx Reported Additional Past Surgical History / Comment(s): right forearm abcess, bilateral inguinal hernia repairs as an infant. Neck surgery Past Anesthesia/Blood Transfusion Reactions: No Reported Reaction Past Psychological History: Anxiety, Depression Smoking Status: Current every day smoker Past Alcohol Use History: Occasional Past Drug Use History: Heroin, IV Drug Use, Marijuana, Methamphetamine - Past Family History Mother Family Medical History: Cancer Additional Family Medical History / Comment(s): Mother had leukemia. She is . Father Family Medical History: Diabetes Mellitus Additional Family Medical History / Comment(s): Father is . General Exam Limitations: no limitations General appearance: alert, in no apparent distress Head exam: Present: atraumatic, normocephalic, normal inspection Eye exam: Present: normal appearance, PERRL, EOMI. Absent: scleral icterus, conjunctival injection, periorbital swelling ENT exam: Present: normal exam, mucous membranes moist Neck exam: Present: normal inspection. Absent: tenderness, meningismus, lymphadenopathy Respiratory exam: Present: normal lung sounds bilaterally. Absent: respiratory distress, wheezes, rales, rhonchi, stridor Cardiovascular Exam: Present: regular rate, normal rhythm, normal heart sounds. Absent: systolic murmur, diastolic murmur, rubs, gallop, clicks GI/Abdominal exam: Present: soft, normal bowel sounds. Absent: distended, tenderness, guarding, rebound, rigid Extremities exam: Present: normal inspection, full ROM, normal capillary refill. Absent: tenderness, pedal edema, joint swelling, calf tenderness Back exam: Present: normal inspection Neurological exam: Present: alert, oriented X3, CN II-XII intact Psychiatric exam: Present: normal affect, normal mood Skin exam: Present: warm, dry, intact, normal color. Absent: rash Course Vital Signs 11/04/18 11/04/18 04:44 08:11 Temperature 97.2 F L 97.8 F Pulse Rate 84 89 Respiratory 20 17 Rate Blood Pressure 121/83 132/91 O2 Sat by Pulse 96 Oximetry Medical Decision Making - Medical Decision Making 43 male the ER for evasive neck pain acute on chronic back pain postoperative neck pain. Patient having no signs of infection, labwork is normal patient can be discharged home - Lab Data Result diagrams: 11/04/18 06:20 11/04/18 06:20 Lab Results 11/04/18 11/04/18 11/04/18 Range/Units 06:20 06:20 06:20 WBC 5.4 (3.8-10.6) k/uL RBC 4.48 (4.30-5.90) m/uL Hgb 13.7 (13.0-17.5) gm/dL Hct 41.3 (39.0-53.0) % MCV 92.1 (80.0-100.0) fL MCH 30.5 (25.0-35.0) pg MCHC 33.1 (31.0-37.0) g/dL RDW 14.8 (11.5-15.5) % Plt Count 167 (150-450) k/uL Neutrophils % 60 % Lymphocytes % 26 % Monocytes % 8 % Eosinophils % 3 % Basophils % 1 % Neutrophils # 3.2 (1.3-7.7) k/uL Lymphocytes # 1.4 (1.0-4.8) k/uL Monocytes # 0.4 (0-1.0) k/uL Eosinophils # 0.1 (0-0.7) k/uL Basophils # 0.0 (0-0.2) k/uL Sodium 137 (137-145) mmol/L Potassium 3.9 (3.5-5.1) mmol/L Chloride 106 (98-107) mmol/L Carbon Dioxide 26 (22-30) mmol/L Anion Gap 5 mmol/L BUN 10 (9-20) mg/dL Creatinine 0.46 L (0.66-1.25) mg/dL Est GFR (CKD-EPI)AfAm >90 (>60 ml/min/1.73 sqM) Est GFR (CKD-EPI)NonAf >90 (>60 ml/min/1.73 sqM) Glucose 118 H (74-99) mg/dL Calcium 9.4 (8.4-10.2) mg/dL Phosphorus 3.5 (2.5-4.5) mg/dL Magnesium 1.8 (1.6-2.3) mg/dL Total Bilirubin 0.6 (0.2-1.3) mg/dL AST 105 H (17-59) U/L ALT 98 H (21-72) U/L Alkaline Phosphatase 120 (38-126) U/L Troponin I <0.012 (0.000-0.034) ng/mL C-Reactive Protein 6.0 (<10.0) mg/L Total Protein 7.8 (6.3-8.2) g/dL Albumin 4.0 (3.5-5.0) g/dL Disposition Clinical Impression: Postoperative pain Disposition: HOME SELF-CARE Condition: Good Instructions (If sedation given, give patient instructions): Pain Management (ED), Neck Pain (ED) Is patient prescribed a controlled substance at d/c from ED?: No Referrals: None,Stated [Primary Care Provider] - 1-2 days
[2018-11-04] MEDS ORDERED: MORPHINE SULFATE 4 MG/ML SYRINGE IV STA (05:48)
[2018-11-04] MEDS ORDERED: SODIUM CHLORIDE 0.9% 1,000 ML IV STA (05:48)
[2018-11-04] MEDS ORDERED: ONDANSETRON 4 MG/2 ML VIAL IVP STA (05:48)
[2018-11-04 06:40] LABS: Basophils % (A) 1 %; Eosinophils # (A) 0.1 k/uL (0-0.7); Eosinophils % (A) 3 %; HCT 41.3 % (39.0-53.0); HGB 13.7 gm/dL (13.0-17.5); Lymphocytes # (A) 1.4 k/uL (1.0-4.8); Lymphocytes % (A) 26 %; MCH 30.5 pg (25.0-35.0); MCHC 33.1 g/dL (31.0-37.0); MCV 92.1 fL (80.0-100.0); Monocytes # (A) 0.4 k/uL (0-1.0); Monocytes % (A) 8 %; Neutrophils # (A) 3.2 k/uL (1.3-7.7); Neutrophils % (A) 60 %; Platelet Count 167 k/uL (150-450); RBC 4.48 m/uL (4.30-5.90); RDW 14.8 % (11.5-15.5); WBC 5.4 k/uL (3.8-10.6)
[2018-11-04 06:51] LABS: ALT 98 U/L (21-72); AST 105 U/L (17-59); Alkaline Phosphatase 120 U/L (38-126); Anion Gap 5 mmol/L; Blood Urea Nitrogen 10 mg/dL (9-20); Calcium 9.4 mg/dL (8.4-10.2); Carbon Dioxide 26 mmol/L (22-30); Chloride 106 mmol/L (98-107); Glucose 118 mg/dL (74-99); Magnesium 1.8 mg/dL (1.6-2.3); Phosphorus 3.5 mg/dL (2.5-4.5); Potassium 3.9 mmol/L (3.5-5.1); Sodium 137 mmol/L (137-145); Total Bilirubin 0.6 mg/dL (0.2-1.3); Total Protein 7.8 g/dL (6.3-8.2)
[2018-11-04 08:11] VITALS: BP 132/91; PULSE 89; RESP 17; TEMP 97.8
== END 2018-11-04 08:20 | disposition home or self-care (01) ==
LOC: EC 04:40
DX: G89.18 Other acute postprocedural pain (principal); M54.2 Cervicalgia; G89.29 Other chronic pain; M54.9 Dorsalgia, unspecified; F17.200 Nicotine dependence, unspecified, uncomplicated; Z88.5 Allergy status to narcotic agent; Z88.6 Allergy status to analgesic agent; Z88.8 Allergy status to other drugs, medicaments and biological substances; Z95.0 Presence of cardiac pacemaker; Z59.0 Homelessness
CPT/HCPCS: 36415; 80053; 83735; 84100; 84484; 85025; 86140; 99284; 96374; 96375; 96361; J2270; J2405